=== PATIENT | male | born 1940 | race Caucasian/White ===

== ENCOUNTER 2017-10-15 13:01 | Emergency (ER) | payer MEDICARE ==
[2017-10-15 13:07] VITALS: RESP 18; TEMP 98.3
[2017-10-15] MEDS ORDERED: hydrALAZINE HCL 20 MG/ML 1 ML VIAL IVP STA (13:23)
--- NOTE | 2017-10-15 13:49 | ED ---
General Adult HPI - General Chief complaint: Chest Pain Stated complaint: Chest Pain Time Seen by Provider: 10/15/17 13:18 Source: patient, RN notes reviewed, old records reviewed Mode of arrival: wheelchair Limitations: no limitations - History of Present Illness Initial comments: This is a 77-year-old male to the ER for evaluation regards to elevated blood pressure. Patient states he has no medical history takes no medications. Patient follow-up with new doctor today. Patient's blood pressure was found to be elevated in the office. Patient here in the ER denies headache chest pain shortness of breath or abdominal pain, he is without complaint. He is not taking blood pressure medications recently - Related Data Home Medications Medication Instructions Recorded Confirmed Aspirin EC [Ecotrin Low Dose] 162 mg PO ONCE PRN 10/15/17 10/15/17 Previous Rx's Medication Instructions Recorded Enalapril [Vasotec] 5 mg PO BID #60 tab 10/15/17 Hydrochlorothiazide [Hydrodiuril] 50 mg PO DAILY #30 tab 10/15/17 hydrALAZINE HCL [Apresoline] 25 mg PO TID #15 tab 10/15/17 Allergies Allergy/AdvReac Type Severity Reaction Status Date / Time No Known Allergies Allergy Verified 10/15/17 13:43 Review of Systems ROS Statement: Those systems with pertinent positive or pertinent negative responses have been documented in the HPI. ROS Other: All systems not noted in ROS Statement are negative. Past Medical History Past Medical History: No Reported History History of Any Multi-Drug Resistant Organisms: None Reported Past Surgical History: Hernia Repair, Prostate Surgery Past Psychological History: No Psychological Hx Reported Smoking Status: Never smoker Past Alcohol Use History: None Reported Past Drug Use History: None Reported General Exam Limitations: no limitations General appearance: alert, in no apparent distress Head exam: Present: atraumatic, normocephalic, normal inspection Eye exam: Present: normal appearance, PERRL, EOMI. Absent: scleral icterus, conjunctival injection, periorbital swelling ENT exam: Present: normal exam, mucous membranes moist Neck exam: Present: normal inspection. Absent: tenderness, meningismus, lymphadenopathy Respiratory exam: Present: normal lung sounds bilaterally. Absent: respiratory distress, wheezes, rales, rhonchi, stridor Cardiovascular Exam: Present: regular rate, normal rhythm, normal heart sounds. Absent: systolic murmur, diastolic murmur, rubs, gallop, clicks GI/Abdominal exam: Present: soft, normal bowel sounds. Absent: distended, tenderness, guarding, rebound, rigid Extremities exam: Present: normal inspection, full ROM, normal capillary refill. Absent: tenderness, pedal edema, joint swelling, calf tenderness Back exam: Present: normal inspection Neurological exam: Present: alert, oriented X3, CN II-XII intact Psychiatric exam: Present: normal affect, normal mood Skin exam: Present: warm, dry, intact, normal color. Absent: rash Course Vital Signs 10/15/17 10/15/17 10/15/17 13:03 13:40 13:57 Temperature 98.3 F Pulse Rate 54 L 55 L Pulse Rate [ 56 L Bilateral Sitting Radial] Respiratory 18 18 Rate Blood Pressure 198/79 201/93 O2 Sat by Pulse 100 100 Oximetry 10/15/17 14:55 Temperature Pulse Rate 66 Pulse Rate [ Bilateral Sitting Radial] Respiratory 18 Rate Blood Pressure 182/85 O2 Sat by Pulse 100 Oximetry - Reevaluation(s) Reevaluation #1: 10/15/17 15:45 Blood pressure is much improved with treatment, patient consult regarding blood pressure EKG Findings - EKG Comments: EKG Findings:: EKG shows sinus bradycardia rate of 58, IA 190, QRS 96, QTc 431 Medical Decision Making - Medical Decision Making 77 male the ER Hypertension, continue follow-up with primary care. - Lab Data Result diagrams: 10/15/17 13:36 10/15/17 13:36 Lab Results 10/15/17 10/15/17 10/15/17 Range/Units 13:36 13:36 13:36 WBC 3.7 L (3.8-10.6) k/uL RBC 4.03 L (4.30-5.90) m/uL Hgb 13.5 (13.0-17.5) gm/dL Hct 38.4 L (39.0-53.0) % MCV 95.5 (80.0-100.0) fL MCH 33.5 (25.0-35.0) pg MCHC 35.1 (31.0-37.0) g/dL RDW 14.8 (11.5-15.5) % Plt Count 124 L (150-450) k/uL Neutrophils % 37 % Lymphocytes % 53 % Monocytes % 3 % Eosinophils % 4 % Basophils % 0 % Neutrophils # 1.4 (1.3-7.7) k/uL Lymphocytes # 2.0 (1.0-4.8) k/uL Monocytes # 0.1 (0-1.0) k/uL Eosinophils # 0.1 (0-0.7) k/uL Basophils # 0.0 (0-0.2) k/uL Manual Slide Review Performed RBC Morphology Normal PT (9.0-12.0) sec INR (<1.2) APTT (22.0-30.0) sec Sodium 142 (137-145) mmol/L Potassium 4.5 (3.5-5.1) mmol/L Chloride 107 (98-107) mmol/L Carbon Dioxide 26 (22-30) mmol/L Anion Gap 9 mmol/L BUN 19 (9-20) mg/dL Creatinine 1.30 H (0.66-1.25) mg/dL Est GFR (CKD-EPI)AfAm 61 (>60 ml/min/1.73 sqM) Est GFR (CKD-EPI)NonAf 53 (>60 ml/min/1.73 sqM) Glucose 88 (74-99) mg/dL Calcium 9.6 (8.4-10.2) mg/dL Magnesium 2.3 (1.6-2.3) mg/dL Total Bilirubin 0.6 (0.2-1.3) mg/dL AST 30 (17-59) U/L ALT 36 (21-72) U/L Alkaline Phosphatase 73 (38-126) U/L Total Creatine Kinase 158 (55-170) U/L CK-MB (CK-2) 2.1 (0.0-2.4) ng/mL CK-MB (CK-2) Rel Index 1.3 Troponin I <0.012 (0.000-0.034) ng/mL Total Protein 7.1 (6.3-8.2) g/dL Albumin 4.4 (3.5-5.0) g/dL 10/15/17 Range/Units 13:36 WBC (3.8-10.6) k/uL RBC (4.30-5.90) m/uL Hgb (13.0-17.5) gm/dL Hct (39.0-53.0) % MCV (80.0-100.0) fL MCH (25.0-35.0) pg MCHC (31.0-37.0) g/dL RDW (11.5-15.5) % Plt Count (150-450) k/uL Neutrophils % % Lymphocytes % % Monocytes % % Eosinophils % % Basophils % % Neutrophils # (1.3-7.7) k/uL Lymphocytes # (1.0-4.8) k/uL Monocytes # (0-1.0) k/uL Eosinophils # (0-0.7) k/uL Basophils # (0-0.2) k/uL Manual Slide Review RBC Morphology PT 10.4 (9.0-12.0) sec INR 1.1 (<1.2) APTT 27.8 (22.0-30.0) sec Sodium (137-145) mmol/L Potassium (3.5-5.1) mmol/L Chloride (98-107) mmol/L Carbon Dioxide (22-30) mmol/L Anion Gap mmol/L BUN (9-20) mg/dL Creatinine (0.66-1.25) mg/dL Est GFR (CKD-EPI)AfAm (>60 ml/min/1.73 sqM) Est GFR (CKD-EPI)NonAf (>60 ml/min/1.73 sqM) Glucose (74-99) mg/dL Calcium (8.4-10.2) mg/dL Magnesium (1.6-2.3) mg/dL Total Bilirubin (0.2-1.3) mg/dL AST (17-59) U/L ALT (21-72) U/L Alkaline Phosphatase (38-126) U/L Total Creatine Kinase (55-170) U/L CK-MB (CK-2) (0.0-2.4) ng/mL CK-MB (CK-2) Rel Index Troponin I (0.000-0.034) ng/mL Total Protein (6.3-8.2) g/dL Albumin (3.5-5.0) g/dL - Radiology Data Radiology results: report reviewed (CT angiogram chest negative for acute disease), image reviewed Disposition Clinical Impression: Hypertension Disposition: HOME SELF-CARE Condition: Good Instructions: Hypertension (ED) Prescriptions: Enalapril [Vasotec] 5 mg PO BID #60 tab hydrALAZINE HCL [Apresoline] 25 mg PO TID #15 tab Is patient prescribed a controlled substance at d/c from ED?: No Referrals: Deidre Calabrese MD [Primary Care Provider] - 1-2 days
[2017-10-15 14:00] LABS: Basophils % (A) 0 %; Eosinophils # (A) 0.1 k/uL (0-0.7); Eosinophils % (A) 4 %; HCT 38.4 % (39.0-53.0); HGB 13.5 gm/dL (13.0-17.5); Lymphocytes % (A) 53 %; MCH 33.5 pg (25.0-35.0); MCHC 35.1 g/dL (31.0-37.0); MCV 95.5 fL (80.0-100.0); Mean Platelet Volume 7.5; Monocytes # (A) 0.1 k/uL (0-1.0); Monocytes % (A) 3 %; Neutrophils # (A) 1.4 k/uL (1.3-7.7); Neutrophils % (A) 37 %; Platelet Count 124 k/uL (150-450); RBC 4.03 m/uL (4.30-5.90); RDW 14.8 % (11.5-15.5); WBC 3.7 k/uL (3.8-10.6)
[2017-10-15 14:11] LABS: Albumin 4.4 g/dL (3.5-5.0); Calcium 9.6 mg/dL (8.4-10.2); Magnesium 2.3 mg/dL (1.6-2.3); Potassium 4.5 mmol/L (3.5-5.1); Total Bilirubin 0.6 mg/dL (0.2-1.3); Total Protein 7.1 g/dL (6.3-8.2)
[2017-10-15 14:27] LABS: INR 1.1 (<1.2); Partial Thromboplastin Time 27.8 sec (22.0-30.0); Prothrombin Time 10.4 sec (9.0-12.0)
[2017-10-15 14:32] LABS: Creatine Kinase 158 U/L (55-170)
[2017-10-15 14:45] LABS: Creatine Kinase MB 2.1 ng/mL (0.0-2.4); Troponin I <0.012 ng/mL (0.000-0.034)
--- NOTE | 2017-10-15 15:24 | CT ---
EXAMINATION TYPE: CT angio chest DATE OF EXAM: 10/15/2017 COMPARISON: None HISTORY: Chest pain and abnormal EKG CT DLP: 323.3 mGycm Automated exposure control for dose reduction was used. CONTRAST: CTA scan of the thorax is performed with IV Contrast, patient injected with 70 mL of Isovue 370, pulm onary embolism protocol. MIP images are created and reviewed. 3D reconstructed images are created o n an independent workstation and reviewed. FINDINGS: LUNGS: The lungs are grossly clear, there is no concerning parenchymal mass or nodule identified. Bala cified granuloma present in the left lower lobe. Minimal basilar atelectatic changes are present The re is no pleural effusion or pneumothorax seen. The tracheobronchial tree is patent. AORTA: No additional significant abnormality is seen. Coronary artery calcifications are present MEDIASTINUM: There is satisfactory enhancement of the pulmonary artery and its branches, there is no CT evidence for pulmonary embolism. There are no greater than 1 cm hilar or mediastinal lymph nodes. No pericardial effusion is seen. OTHER: Scattered calcifications in the spleen likely indicative of old granulomatous disease. The li theodore shows low attenuation possibly due to hepatic steatosis. Possible small hiatal hernia. IMPRESSION: NO EVIDENT PULMONARY EMBOLISM. OLD GRANULOMATOUS DISEASE. CORONARY ARTERY DISEASE. POSSIBLE HIATAL HE RNIA, ADDITIONAL FINDINGS ABOVE.
[2017-10-15] MEDS ORDERED: ENALAPRILAT 1.25 MG/ML 1 ML VIAL IVP STA (15:40)
[2017-10-15 16:47] VITALS: BP 158/76; PULSE 61
== END 2017-10-15 16:47 | disposition home or self-care (01) ==
LOC: EC 13:01
DX: I10 Essential (primary) hypertension (principal); Z98.890 Other specified postprocedural states
CPT/HCPCS: 36415; 71275; 80053; 82550; 82553; 83735; 84484; 85025; 85610; 85730; 93005; 96374; 96375; 99285

== ENCOUNTER 2018-01-13 13:59 | Inpatient (IN) | payer MEDICARE ==
[2018-01-13] MEDS ORDERED: SODIUM CHLORIDE 0.9% 500 ML 500 ML IV STA (14:55)
[2018-01-13] MEDS ORDERED: PANTOPRAZOLE 40 MG/10 ML VIAL IVP STA (14:55)
--- NOTE | 2018-01-13 14:58 | ED ---
GI Bleed HPI <Chirag Brand - Last Filed: 01/13/18 15:49> - General Source: patient, RN notes reviewed Mode of arrival: ambulatory Limitations: no limitations <Corey Velasquez - Last Filed: 01/13/18 16:03> - General Chief complaint: GI Bleed Stated complaint: GI bleed Time Seen by Provider: 01/13/18 14:41 - History of Present Illness Initial comments: This a 77-year-old male presents emergency Department chief complaint of rectal bleeding. Patient states that he was recently discharged from hospital in [place] for cardiac issues. He states he is not sure if he is actively was on blood thinners of any sort. Patient states he does take 81 mg aspirin daily at this time. Patient states that his bowel movement was black and then he had bright red blood. He states it was slightly from her than usual although. Patient has no rectal pain no abdominal pain this time. Has no history of GI bleed or peptic ulcer disease or known diverticulitis. Patient denies fevers or chills. Denies chest pain or shortness breath. (Corey Velasquez) - Related Data Home Medications Medication Instructions Recorded Confirmed Aspirin 81 mg PO DAILY 01/13/18 01/13/18 Atorvastatin [Lipitor] 40 mg PO DAILY 01/13/18 01/13/18 Isosorbide Mononitrate ER [Imdur] 30 mg PO DAILY 01/13/18 01/13/18 Lisinopril [Prinivil] 5 mg PO DAILY 01/13/18 01/13/18 Metoprolol Succinate (ER) [Toprol 25 mg PO DAILY 01/13/18 01/13/18 Xl] Nitroglycerin Sl Tabs [Nitrostat] 0.4 mg PO DIRECTED 01/13/18 01/13/18 Allergies Allergy/AdvReac Type Severity Reaction Status Date / Time No Known Allergies Allergy Verified 01/13/18 14:27 Review of Systems ROS Other: All systems not noted in ROS Statement are negative. <Chirag Brand - Last Filed: 01/13/18 15:49> ROS Other: All systems not noted in ROS Statement are negative. <Corey Velasquez - Last Filed: 01/13/18 16:03> ROS Statement: Those systems with pertinent positive or pertinent negative responses have been documented in the HPI. Past Medical History Past Medical History: No Reported History History of Any Multi-Drug Resistant Organisms: None Reported Past Surgical History: Hernia Repair, Prostate Surgery Past Psychological History: No Psychological Hx Reported Smoking Status: Never smoker Past Alcohol Use History: None Reported Past Drug Use History: None Reported <Corey Velasquez Samra - Last Filed: 01/13/18 16:03> General Exam Limitations: no limitations General appearance: alert, in no apparent distress Head exam: Present: atraumatic, normocephalic, normal inspection Respiratory exam: Present: normal lung sounds bilaterally. Absent: respiratory distress, wheezes, rales, rhonchi, stridor Cardiovascular Exam: Present: regular rate, normal rhythm, normal heart sounds. Absent: systolic murmur, diastolic murmur, rubs, gallop, clicks GI/Abdominal exam: Present: soft, normal bowel sounds. Absent: distended, tenderness, guarding, rebound, rigid Rectal exam: Present: normal inspection, normal rectal tone Neurological exam: Present: alert, oriented X3, CN II-XII intact Skin exam: Present: warm, dry, intact, normal color. Absent: rash <Corey Velasquez Samra - Last Filed: 01/13/18 16:03> Vital Signs 01/13/18 14:06 Temperature 98.4 F Pulse Rate 77 Respiratory 16 Rate Blood Pressure 173/75 O2 Sat by Pulse 98 Oximetry Medical Decision Making - Lab Data Result diagrams: 01/13/18 14:59 01/13/18 14:59 <Chirag Brand - Last Filed: 01/13/18 15:49> - Lab Data Result diagrams: 01/13/18 14:59 01/13/18 14:59 <Corey Velasquez - Last Filed: 01/13/18 16:03> - Medical Decision Making Patient reevaluated by myself, Dr. Brand. Patient resting comfortably in bed. Patient updated on results and plan. Case was discussed in detail with Dr. Dave, covering for Dr. Calabrese, who will admit with consult for GI. I did review and agree with PA findings. This includes all diagnostic interpretations and treatment. (Chirag Brand) - Lab Data Lab Results 01/13/18 01/13/18 01/13/18 Range/Units 14:59 14:59 14:59 WBC 4.1 (3.8-10.6) k/uL RBC 3.48 L (4.30-5.90) m/uL Hgb 11.8 L (13.0-17.5) gm/dL Hct 34.9 L (39.0-53.0) % MCV 100.2 H (80.0-100.0) fL MCH 33.9 (25.0-35.0) pg MCHC 33.8 (31.0-37.0) g/dL RDW 14.0 (11.5-15.5) % Plt Count 154 (150-450) k/uL Neutrophils % 54 % Lymphocytes % 39 % Monocytes % 3 % Eosinophils % 2 % Basophils % 0 % Neutrophils # 2.2 (1.3-7.7) k/uL Lymphocytes # 1.6 (1.0-4.8) k/uL Monocytes # 0.1 (0-1.0) k/uL Eosinophils # 0.1 (0-0.7) k/uL Basophils # 0.0 (0-0.2) k/uL Macrocytosis Slight APTT 27.9 (22.0-30.0) sec Sodium 140 (137-145) mmol/L Potassium 4.4 (3.5-5.1) mmol/L Chloride 105 (98-107) mmol/L Carbon Dioxide 26 (22-30) mmol/L Anion Gap 9 mmol/L BUN 20 (9-20) mg/dL Creatinine 1.19 (0.66-1.25) mg/dL Est GFR (CKD-EPI)AfAm 68 (>60 ml/min/1.73 sqM) Est GFR (CKD-EPI)NonAf 59 (>60 ml/min/1.73 sqM) Glucose 93 (74-99) mg/dL Plasma Lactic Acid Otoniel (0.7-2.0) mmol/L Calcium 9.6 (8.4-10.2) mg/dL Magnesium 2.1 (1.6-2.3) mg/dL Total Bilirubin 0.6 (0.2-1.3) mg/dL AST 25 (17-59) U/L ALT 38 (21-72) U/L Alkaline Phosphatase 67 (38-126) U/L Total Protein 6.9 (6.3-8.2) g/dL Albumin 4.1 (3.5-5.0) g/dL Lipase 118 (23-300) U/L Stool Occult Blood (Negative) 01/13/18 01/13/18 Range/Units 14:59 14:59 WBC (3.8-10.6) k/uL RBC (4.30-5.90) m/uL Hgb (13.0-17.5) gm/dL Hct (39.0-53.0) % MCV (80.0-100.0) fL MCH (25.0-35.0) pg MCHC (31.0-37.0) g/dL RDW (11.5-15.5) % Plt Count (150-450) k/uL Neutrophils % % Lymphocytes % % Monocytes % % Eosinophils % % Basophils % % Neutrophils # (1.3-7.7) k/uL Lymphocytes # (1.0-4.8) k/uL Monocytes # (0-1.0) k/uL Eosinophils # (0-0.7) k/uL Basophils # (0-0.2) k/uL Macrocytosis APTT (22.0-30.0) sec Sodium (137-145) mmol/L Potassium (3.5-5.1) mmol/L Chloride (98-107) mmol/L Carbon Dioxide (22-30) mmol/L Anion Gap mmol/L BUN (9-20) mg/dL Creatinine (0.66-1.25) mg/dL Est GFR (CKD-EPI)AfAm (>60 ml/min/1.73 sqM) Est GFR (CKD-EPI)NonAf (>60 ml/min/1.73 sqM) Glucose (74-99) mg/dL Plasma Lactic Acid Otoniel 0.7 (0.7-2.0) mmol/L Calcium (8.4-10.2) mg/dL Magnesium (1.6-2.3) mg/dL Total Bilirubin (0.2-1.3) mg/dL AST (17-59) U/L ALT (21-72) U/L Alkaline Phosphatase (38-126) U/L Total Protein (6.3-8.2) g/dL Albumin (3.5-5.0) g/dL Lipase (23-300) U/L Stool Occult Blood Positive (Negative) Disposition <Brand,Chirag - Last Filed: 01/13/18 15:49> <Corey Velasquez - Last Filed: 01/13/18 16:03> Clinical Impression: GI bleed Disposition: ADMITTED IP TO THIS [facility] Condition: Stable Referrals: Deidre Calabrese MD [Primary Care Provider] - 1-2 days
[2018-01-13 15:18] LABS: Basophils % (A) 0 %; Eosinophils # (A) 0.1 k/uL (0-0.7); Eosinophils % (A) 2 %; HCT 34.9 % (39.0-53.0); HGB 11.8 gm/dL (13.0-17.5); Lymphocytes # (A) 1.6 k/uL (1.0-4.8); Lymphocytes % (A) 39 %; MCH 33.9 pg (25.0-35.0); MCHC 33.8 g/dL (31.0-37.0); MCV 100.2 fL (80.0-100.0); Macrocytosis Slight; Mean Platelet Volume 7.6; Monocytes # (A) 0.1 k/uL (0-1.0); Monocytes % (A) 3 %; Neutrophils # (A) 2.2 k/uL (1.3-7.7); Neutrophils % (A) 54 %; Platelet Count 154 k/uL (150-450); RBC 3.48 m/uL (4.30-5.90); WBC 4.1 k/uL (3.8-10.6)
[2018-01-13 15:27] LABS: Albumin 4.1 g/dL (3.5-5.0); Calcium 9.6 mg/dL (8.4-10.2); Magnesium 2.1 mg/dL (1.6-2.3); Potassium 4.4 mmol/L (3.5-5.1); Total Bilirubin 0.6 mg/dL (0.2-1.3); Total Protein 6.9 g/dL (6.3-8.2)
[2018-01-13] MEDS ORDERED: NALOXONE 0.4 MG/ML 1 ML VIAL IV PRN (16:03)
[2018-01-13] MEDS ORDERED: ACETAMINOPHEN TAB 325 MG TAB PO PRN (16:03)
[2018-01-14] MEDS: LISINOPRIL 5 MG TAB PO SCH (07:54)
[2018-01-14] MEDS: ATORVASTATIN 40 MG TAB PO SCH (07:54)
[2018-01-14] MEDS: ISOSORBIDE MONONITRATE ER 30 MG TAB.ER.24H PO SCH (07:54)
[2018-01-14] MEDS: METOPROLOL SUCCINATE (ER) 25 MG TAB.ER.24H PO SCH (07:55)
[2018-01-14 09:47] LABS: Basophils % (A) 0 %; Eosinophils # (A) 0.1 k/uL (0-0.7); Eosinophils % (A) 3 %; HCT 34.2 % (39.0-53.0); HGB 11.5 gm/dL (13.0-17.5); Lymphocytes # (A) 1.7 k/uL (1.0-4.8); Lymphocytes % (A) 49 %; MCH 33.9 pg (25.0-35.0); MCHC 33.7 g/dL (31.0-37.0); MCV 100.5 fL (80.0-100.0); Macrocytosis Slight; Mean Platelet Volume 7.1; Monocytes # (A) 0.1 k/uL (0-1.0); Monocytes % (A) 3 %; Neutrophils # (A) 1.5 k/uL (1.3-7.7); Neutrophils % (A) 43 %; Platelet Count 146 k/uL (150-450); RDW 13.9 % (11.5-15.5); WBC 3.5 k/uL (3.8-10.6)
[2018-01-14 10:01] LABS: Albumin 3.8 g/dL (3.5-5.0); Calcium 9.4 mg/dL (8.4-10.2); Potassium 4.2 mmol/L (3.5-5.1); Total Bilirubin 0.6 mg/dL (0.2-1.3); Total Protein 6.6 g/dL (6.3-8.2)
[2018-01-14 10:03] LABS: INR 1.2 (<1.2); Prothrombin Time 11.3 sec (9.0-12.0)
--- NOTE | 2018-01-14 11:34 | P.CONS ---
History of Present Illness - Reason for Consult Consult date: 01/14/18 Gi bleed Requesting physician: Amber Dave - Chief Complaint rectal bleeding - History of Present Illness 77-year-old gentleman with a past medical history of prostate carcinoma 2012 without chemoradiation, CAD, GERD, hyperlipidemia, hypertension. Admitted with rectal bleeding 3 days. Patient was recently hospitalized at [facility] and underwent heart catheterization with findings of triple-vessel disease. PTCA stent was not performed. He has been maintained on baby aspirin. He followed up with a cardiovascular surgeon and is presently deciding his options. He's been constipated x 1 week on Thursday he passed a bowel movement that was blood tinged followed by 2-3 tinged bowel movements daily. Denies hematemesis melena fever chills weight loss or abdominal pain. Last bloody bowel movement was yesterday morning. Denies abdominal pain. No history GI bleeding. His memory last colonoscopy was 3 years ago performed [address]. Rodrigues at [facility] but does not recall the findings. EGD April 2016 at [facility] reported gastritis and esophagitis. [facility] records were reviewed colonoscopy report was not seen. Admission 11.8 presently 11.5. MCV 100.5. Platelet 146. INR 1.2. FOBT positive. BUN 22 creatinine 1.1. Review of Systems Constitutional: Denies fever, chills, sweats, weight gain, or loss. HEENT: Negative for migraines, blurred vision or loss, earaches, drainage, tinnitus, oral mucosal lesions, dysphagia, or odynophagia. Cardiac: Negative for chest pain, arrhythmias, or palpitation. Respiratory: Negative for shortness of breath, hemoptysis, cough, or sputum production. Gastrointestinal: See HPI for pertinent findings. Genitourinary: Negative for hematuria, urgency, frequency, polyuria, dysuria, or penile discharge. Musculoskeletal: Negative for muscle aches, swelling, arthritis, and arthralgias. Neurologic: Negative for stroke or TIA. Endocrine: Negative for thyroid problems. Skin: Negative for rash or itching. Psychiatric: Negative history for depression and anxiety Past Medical History Past Medical History: Coronary Artery Disease (CAD), Cancer, GERD/Reflux, Hyperlipidemia, Hypertension, Prostate Disorder Additional Past Medical History / Comment(s): prostate ca 2013(sx only), gout, psoriases on scalp History of Any Multi-Drug Resistant Organisms: None Reported Past Surgical History: Heart Catheterization, Hernia Repair, Prostate Surgery, Tonsillectomy Past Anesthesia/Blood Transfusion Reactions: No Reported Reaction Smoking Status: Never smoker - Past Family History Mother Family Medical History: No Reported History Additional Family Medical History / Comment(s): age 96 Father Additional Family Medical History / Comment(s): at age 59 had all teeth pulled and 3 days later ?blood clot/mi pt not sure Medications and Allergies Home Medications Medication Instructions Recorded Confirmed Type Aspirin 81 mg PO DAILY 01/13/18 01/13/18 History Atorvastatin [Lipitor] 40 mg PO DAILY 01/13/18 01/13/18 History Isosorbide Mononitrate ER [Imdur] 30 mg PO DAILY 01/13/18 01/13/18 History Lisinopril [Prinivil] 5 mg PO DAILY 01/13/18 01/13/18 History Metoprolol Succinate (ER) [Toprol 25 mg PO DAILY 01/13/18 01/13/18 History Xl] Nitroglycerin Sl Tabs [Nitrostat] 0.4 mg PO DIRECTED 01/13/18 01/13/18 History Allergies Allergy/AdvReac Type Severity Reaction Status Date / Time No Known Allergies Allergy Verified 01/13/18 14:27 Physical Exam Vitals: Vital Signs Temp Pulse Pulse Resp BP BP Pulse Ox 01/14/18 06:40 97.3 F L 61 14 152/72 99 01/14/18 05:57 97.9 F 56 L 16 160/72 99 01/13/18 23:00 97.1 F L 59 L 20 136/66 99 01/13/18 18:49 98.0 F 65 18 124/74 99 01/13/18 17:00 63 18 157/87 98 01/13/18 16:30 63 18 156/88 01/13/18 16:00 65 18 156/74 98 01/13/18 15:30 68 18 164/75 01/13/18 15:00 66 18 146/82 98 01/13/18 14:06 98.4 F 77 16 173/75 98 Intake and Output 01/13/18 01/14/18 01/14/18 22:59 06:59 14:59 Intake Total 999 Balance 999 Intake: Intake, IV Titration 999 Amount Sodium Chloride 0.9% 500 999 ml 500 ml @ 999 mls/hr IV .Q31M STA Rx#:[id number] Other: # Voids 3 General appearance: The patient is alert, oriented, in no acute distress. HET: Head is normocephalic and atraumatic. Pupils are equal and reactive. Oropharynx is clear without lesions. Neck: Supple without lymphadenopathy. Trachea midline. Heart: S1 S2. Regular rate and rhythm. Lungs: No crackles or wheezes are heard. Abdomen: Soft, nontender, nondistended with bowel sounds. No peritoneal signs. No palpable organomegaly or masses. Extremities: Normal skin color and turgor. No cyanosis, rash, ulceration, clubbing, or edema. Radial and pedal pulses are 2/4 bilaterally. Neurological: No focal deficits. Strength and sensation are grossly intact. Results CBC & Chem 7: 01/14/18 09:33 01/14/18 09:33 Labs: Abnormal Lab Results - Last 24 Hours (Table) 01/13/18 01/14/18 01/14/18 Range/Units 14:59 09:33 09:33 WBC 3.5 L (3.8-10.6) k/uL RBC 3.48 L 3.40 L (4.30-5.90) m/uL Hgb 11.8 L 11.5 L (13.0-17.5) gm/dL Hct 34.9 L 34.2 L (39.0-53.0) % MCV 100.2 H 100.5 H (80.0-100.0) fL Plt Count 146 L (150-450) k/uL INR (<1.2) Creatinine 1.26 H (0.66-1.25) mg/dL Glucose 111 H (74-99) mg/dL 01/14/18 Range/Units 09:33 WBC (3.8-10.6) k/uL RBC (4.30-5.90) m/uL Hgb (13.0-17.5) gm/dL Hct (39.0-53.0) % MCV (80.0-100.0) fL Plt Count (150-450) k/uL INR 1.2 H (<1.2) Creatinine (0.66-1.25) mg/dL Glucose (74-99) mg/dL Assessment and Plan (1) Rectal bleeding Narrative/Plan: 77-year-old gentleman admitted with 1 week history of constipation followed by painless blood tinged bowel movements possible colonic diverticular bleed possible colitis possible hemorrhoidal maintained on aspirin for history of triple-vessel coronary artery disease with recent heart catheterization not requiring PTCA or stent. Patient reports last colonoscopy approximately 3 years ago but does not remember findings. Current Visit: Yes Status: Acute Code(s): K62.5 - HEMORRHAGE OF ANUS AND RECTUM SNOMED Code(s): 90484432 (2) GERD (gastroesophageal reflux disease) Current Visit: Yes Status: Chronic Code(s): K21.9 - GASTRO-ESOPHAGEAL REFLUX DISEASE WITHOUT ESOPHAGITIS SNOMED Code(s): 802329059 (3) History of coronary artery disease Current Visit: Yes Status: Acute Code(s): Z86.79 - PERSONAL HISTORY OF OTHER DISEASES OF THE CIRCULATORY SYSTEM SNOMED Code(s): 910689683 (4) History of prostate cancer Current Visit: Yes Status: Acute Code(s): Z85.46 - PERSONAL HISTORY OF MALIGNANT NEOPLASM OF PROSTATE SNOMED Code(s): 013289370 Plan: 1. Full liquid diet. CBC monitoring. GI prophylaxis. We will request colonoscopy report from Dr. Rodrigues's office to be placed on chart for review if more than 3 years ago patient could benefit from repeat colonoscopy. 2. Stool softeners. Will follow with you. Thank you for this kind referral and the opportunity to participate in the care of your patient. This consultation was discussed with Dr. Hines. The impression and plan of care have been directed as dictated.
--- NOTE | 2018-01-14 13:31 | P.HPIM ---
History of Present Illness H&P Date: 01/14/18 Chief Complaint: GI bleed This is a 77-year-old male patient of Dr. Calabrese. Patient presents to the emergency room with complaints of GI bleed. Patient reports that he had an episode of black bowel movement and then he had bright red blood following additional stools. Patient has a known past medical history of coronary artery disease. Patient recently treated at [facility] last week and received a cardiac cath and was told at that time that he required coronary artery bypass graft surgery. Patient states he did not receive any stents at that time and would like to get a second opinion before proceeding with open heart surgery. Additional medical history includes prostate cancer, GERD, hyperlipidemia and hypertension. Stool is positive for occult blood. Hemoglobin 11.8. GI service is consulted. At this time patient denies chest pain or shortness breath. Patient denies nausea vomiting or diarrhea. Patient denies any urinary burning or frequency Review of Systems please refer to HPI otherwise unremarkable Past Medical History Past Medical History: Coronary Artery Disease (CAD), Cancer, GERD/Reflux, Hyperlipidemia, Hypertension, Prostate Disorder Additional Past Medical History / Comment(s): prostate ca 2013(sx only), gout, psoriases on scalp History of Any Multi-Drug Resistant Organisms: None Reported Past Surgical History: Heart Catheterization, Hernia Repair, Prostate Surgery, Tonsillectomy Past Anesthesia/Blood Transfusion Reactions: No Reported Reaction Smoking Status: Never smoker - Past Family History Mother Family Medical History: No Reported History Additional Family Medical History / Comment(s): age 96 Father Additional Family Medical History / Comment(s): at age 59 had all teeth pulled and 3 days later ?blood clot/mi pt not sure Medications and Allergies Home Medications Medication Instructions Recorded Confirmed Type Aspirin 81 mg PO DAILY 01/13/18 01/13/18 History Atorvastatin [Lipitor] 40 mg PO DAILY 01/13/18 01/13/18 History Isosorbide Mononitrate ER [Imdur] 30 mg PO DAILY 01/13/18 01/13/18 History Lisinopril [Prinivil] 5 mg PO DAILY 01/13/18 01/13/18 History Metoprolol Succinate (ER) [Toprol 25 mg PO DAILY 01/13/18 01/13/18 History Xl] Nitroglycerin Sl Tabs [Nitrostat] 0.4 mg PO DIRECTED 01/13/18 01/13/18 History Allergies Allergy/AdvReac Type Severity Reaction Status Date / Time No Known Allergies Allergy Verified 01/13/18 14:27 Physical Exam Vitals: Vital Signs Temp Pulse Pulse Resp BP BP Pulse Ox 01/14/18 11:06 61 14 01/14/18 06:40 97.3 F L 61 14 152/72 99 01/14/18 05:57 97.9 F 56 L 16 160/72 99 01/13/18 23:00 97.1 F L 59 L 20 136/66 99 01/13/18 18:49 98.0 F 65 18 124/74 99 01/13/18 17:00 63 18 157/87 98 01/13/18 16:30 63 18 156/88 01/13/18 16:00 65 18 156/74 98 01/13/18 15:30 68 18 164/75 01/13/18 15:00 66 18 146/82 98 01/13/18 14:06 98.4 F 77 16 173/75 98 Intake and Output 01/13/18 01/14/18 01/14/18 22:59 06:59 14:59 Intake Total 999 Balance 999 Intake: Intake, IV Titration 999 Amount Sodium Chloride 0.9% 500 999 ml 500 ml @ 999 mls/hr IV .Q31M STA Rx#:[id number] Other: Voiding Method Toilet # Voids 3 Head normocephalic Neck supple Lungs clear to auscultation bilaterally no wheezing or crackles Heart regular rate and rhythm S1-S2, no rub or gallop Abdomen is soft nontender nondistended positive bowel sounds no hepatosplenomegaly Extremities no edema Neuro alert and orientated to 3 Results CBC & Chem 7: 01/14/18 09:33 01/14/18 09:33 Labs: Abnormal Lab Results - Last 24 Hours (Table) 01/13/18 01/14/18 01/14/18 Range/Units 14:59 09:33 09:33 WBC 3.5 L (3.8-10.6) k/uL RBC 3.48 L 3.40 L (4.30-5.90) m/uL Hgb 11.8 L 11.5 L (13.0-17.5) gm/dL Hct 34.9 L 34.2 L (39.0-53.0) % MCV 100.2 H 100.5 H (80.0-100.0) fL Plt Count 146 L (150-450) k/uL INR (<1.2) Creatinine 1.26 H (0.66-1.25) mg/dL Glucose 111 H (74-99) mg/dL 01/14/18 Range/Units 09:33 WBC (3.8-10.6) k/uL RBC (4.30-5.90) m/uL Hgb (13.0-17.5) gm/dL Hct (39.0-53.0) % MCV (80.0-100.0) fL Plt Count (150-450) k/uL INR 1.2 H (<1.2) Creatinine (0.66-1.25) mg/dL Glucose (74-99) mg/dL Thrombosis Risk Factor Assmnt - Choose All That Apply Any of the Below Risk Factors Present?: No Each Risk Factor Represents 3 Points: Age 75 years or older Thrombosis Risk Factor Assessment Total Risk Factor Score: 3 Thrombosis Risk Factor Assessment Level: Moderate Risk Assessment and Plan Assessment: 1. GI bleed. Hemoglobin 11.5. Stool is positive for occult blood. GI services following. GI services patient underwent colonoscopy with Dr. sanchez 3 years ago EGD April 2016 which showed gastritis and esophagitis. Patient to have full liquid diet per GI will request colonoscopy report from Dr. Sanchez's office patient may require repeat colonoscopy. 2. History of coronary artery disease with recent heart catheterization. Patient states he was treated at [facility] and underwent cardiac catheterization in which he was told he needs coronary artery bypass surgery last week. patient states he was discharged on baby aspirin and is currently deciding between his options for surgery. EKG has been ordered. Patient placed on cardiac telemetry monitoring. Patient currently maintained on Lopressor, Imdur and lisinopril 3. History of essential hypertension 4. History of prostate cancer 5. History of hyperlipidemia. Maintained on Lipitor 6. History of GERD DVT prophylaxis SCDs. GI prophylaxis protonix Time with Patient: Greater than 30 (Greater than 60% of the total time spent in counseling and coordination of care. I performed an examination of the patient and discussed their management with the Nurse Practitioner. I have reviewed the Nurse Practitioner's notes and agree with the documented findings and plan of care)
[2018-01-15] MEDS: ISOSORBIDE MONONITRATE ER 30 MG TAB.ER.24H PO SCH (08:42)
[2018-01-15] MEDS: ATORVASTATIN 40 MG TAB PO SCH (08:42)
[2018-01-15] MEDS: METOPROLOL SUCCINATE (ER) 25 MG TAB.ER.24H PO SCH (08:42)
[2018-01-15] MEDS: LISINOPRIL 5 MG TAB PO SCH (08:42)
[2018-01-15 09:31] LABS: Basophils % (A) 0 %; Eosinophils # (A) 0.1 k/uL (0-0.7); Eosinophils % (A) 3 %; HGB 12.3 gm/dL (13.0-17.5); Lymphocytes # (A) 1.4 k/uL (1.0-4.8); Lymphocytes % (A) 39 %; MCH 34.4 pg (25.0-35.0); MCHC 34.2 g/dL (31.0-37.0); MCV 100.7 fL (80.0-100.0); Macrocytosis Slight; Mean Platelet Volume 7.4; Monocytes # (A) 0.1 k/uL (0-1.0); Monocytes % (A) 3 %; Neutrophils # (A) 1.8 k/uL (1.3-7.7); Neutrophils % (A) 53 %; Platelet Count 143 k/uL (150-450); RBC 3.57 m/uL (4.30-5.90); RDW 14.1 % (11.5-15.5); WBC 3.4 k/uL (3.8-10.6)
[2018-01-15 09:32] LABS: Albumin 4.2 g/dL (3.5-5.0); Calcium 9.5 mg/dL (8.4-10.2); Potassium 4.2 mmol/L (3.5-5.1); Total Bilirubin 0.7 mg/dL (0.2-1.3); Total Protein 7.1 g/dL (6.3-8.2)
[2018-01-15] MEDS ORDERED: ASPIRIN 81 MG PO SCH (11:45)
[2018-01-15] MEDS ORDERED: LISINOPRIL 10 MG TAB PO ONE (12:10)
--- NOTE | 2018-01-15 12:10 | P.CRDCN ---
History of Present Illness History of present illness: Mr. Ambrosio is a pleasant 77-year-old male past medical history significant for distal left main lesion 80% stenosis, proximal LAD lesion 90% stenosis, mid lesion 95% stenosis with severe diffuse distal disease, moderate disease of the first diagonal branch, ostial lesion of 70% of the second diagonal branch, left circumflex left right collaterals, first OM, multiple tandem lesions with moderate to severe disease, second obtuse marginal with a proximal lesion 80% stenosis, RCA with 90% stenosis with severe disease distally. Ejection fraction 60%. He also has hypertension, dyslipidemia and prostate cancer 2013 requiring surgery. He follows with Dr. Bray as an outpatient. He underwent catheterization earlier this month and was recommended to undergo bypass surgery. He, however, has requested time to think and wants to consider having surgery in [place] rather than out of town. He is put on maximum medical therapy in thr form of aspirin, imdur, toprol, lisinopril and atorvastatin. After being discharged home he was constipated. He used stool softeners and was able to have a bowel movement. He noticed a dark black stool. Occult blood positive on admission. No felton bleeding. He denies chest pain, shortness of breath, dizziness or palpitations. EKG reveals sinus mechanism with left axis deviation heart rate [address] or T wave abnormalities noted. Laboratory data reviewed, hemoglobin 12.3, platelets 143, sodium 142, potassium 4.2, creatinine 1.33 up from 1.199 admission, magnesium 2.1. Current cardiac medications include aspirin 81 mg daily, atorvastatin 40 mg daily, Imdur 30 mg daily, lisinopril 5 g daily, Toprol 25 mg daily and sublingual nitroglycerin when necessary. At the time of my exam: CONSTITUTIONAL: Denies fever. Denies chills. EYES: Denies blurred vision. Denies vision changes. Denies eye pain. EARS, NOSE, MOUTH & THROAT: Denies headache. Denies sore throat. Denies ear pain. CARDIOVASCULAR: Denies chest pain. Denies shortness of breath. Denies orthopnea. Denies PND. Denies palpitations. RESPIRATORY: Denies cough. GASTROINTESTINAL: Denies abdominal pain. Denies diarrhea. Denies constipation. Denies nausea. Denies vomiting. MUSCULOSKELETAL: Denies myalgias. INTEGUMENTARY: Denies pruitis. Denies rash. NEUROLOGIC: Denies numbness. Denies tingling. Denies weakness. PSYCHIATRIC: Denies anxiety. Denies depression. ENDOCRINE: Denies fatigue. Denies weight change. Denies polydipsia. Denies polyurina. GENITOURINARY: Denies burning, hematuria or urgency with micturation. HEMATOLOGIC: Denies history of anemia. Denies felton bleeding. Blood pressure 154/67 heart rate 70 afebrile maintaining oxygen saturation on room air GENERAL: This is a 77-year-old male in no apparent distress at the time of my examination. HEENT: Head is atraumatic, normocephalic. Pupils are equal, round. Sclerae anicteric. Conjunctivae are clear. Mucous membranes of the mouth are moist. Neck is supple. There is no jugular venous distention. No carotid bruit is heard. LUNGS: Clear to auscultation no wheezes, rales or rhonchi. No chest wall tenderness is noted on palpation or with deep breathing. HEART: Regular rate and rhythm without murmurs, rubs or gallops. S1 and S2 heard. ABDOMEN: Soft, nontender. Bowel sounds are heard. No organomegaly noted. EXTREMITIES: No evidence of peripheral edema and no calf tenderness noted. VASCULAR: Radial and dorsalis pedis pulses palpated, no evidence of clubbing. NEUROLOGIC: Patient is awake, alert and oriented x3. ASSESSMENT Multivessel coronary artery disease Hypertension Dyslipidemia Rectal bleeding PLAN Patient is requesting to have a consultation with CT surgery for second opinion regarding bypass surgery. He has been discussed with nurse practitioner for CT surgery. Increase lisinopril to 10 mg daily for optimal blood pressure control. Resume aspirin 81 mg daily. Thank you kindly for this consultation. Nurse Practitioner note has been reviewed, I agree with a documented findings and plan of care. Patient was seen and examined. Past Medical History Past Medical History: Coronary Artery Disease (CAD), Cancer, GERD/Reflux, Hyperlipidemia, Hypertension, Prostate Disorder Additional Past Medical History / Comment(s): prostate ca 2013(sx only), gout, psoriases on scalp History of Any Multi-Drug Resistant Organisms: None Reported Past Surgical History: Heart Catheterization, Hernia Repair, Prostate Surgery, Tonsillectomy Past Anesthesia/Blood Transfusion Reactions: No Reported Reaction Smoking Status: Never smoker - Past Family History Mother Family Medical History: No Reported History Additional Family Medical History / Comment(s): age 96 Father Additional Family Medical History / Comment(s): at age 59 had all teeth pulled and 3 days later ?blood clot/mi pt not sure Medications and Allergies Home Medications Medication Instructions Recorded Confirmed Type Aspirin 81 mg PO DAILY 01/13/18 01/13/18 History Atorvastatin [Lipitor] 40 mg PO DAILY 01/13/18 01/13/18 History Isosorbide Mononitrate ER [Imdur] 30 mg PO DAILY 01/13/18 01/13/18 History Lisinopril [Prinivil] 5 mg PO DAILY 01/13/18 01/13/18 History Metoprolol Succinate (ER) [Toprol 25 mg PO DAILY 01/13/18 01/13/18 History Xl] Nitroglycerin Sl Tabs [Nitrostat] 0.4 mg PO DIRECTED 01/13/18 01/13/18 History Allergies Allergy/AdvReac Type Severity Reaction Status Date / Time No Known Allergies Allergy Verified 01/13/18 14:27 Physical Exam Vitals: Vital Signs Temp Pulse Resp BP Pulse Ox 01/15/18 08:44 96.9 F L 70 16 154/67 97 01/15/18 06:38 97.8 F 54 L 14 153/57 98 01/14/18 23:00 97.4 F L 57 L 16 151/69 100 01/14/18 14:20 98.3 F 60 16 120/56 99 Intake and Output 01/14/18 01/15/18 01/15/18 22:59 06:59 14:59 Other: Voiding Method Toilet # Voids 2 2 # Bowel Movements 1 Results 01/15/18 08:39 01/15/18 08:39 Cardiac Enzymes 01/15/18 Range/Units 08:39 AST 21 (17-59) U/L CBC 01/15/18 Range/Units 08:39 WBC 3.4 L (3.8-10.6) k/uL RBC 3.57 L (4.30-5.90) m/uL Hgb 12.3 L (13.0-17.5) gm/dL Hct 36.0 L (39.0-53.0) % Plt Count 143 L (150-450) k/uL Comprehensive Metabolic Panel 01/15/18 Range/Units 08:39 Sodium 142 (137-145) mmol/L Potassium 4.2 (3.5-5.1) mmol/L Chloride 105 (98-107) mmol/L Carbon Dioxide 27 (22-30) mmol/L BUN 15 (9-20) mg/dL Creatinine 1.33 H (0.66-1.25) mg/dL Glucose 121 H (74-99) mg/dL Calcium 9.5 (8.4-10.2) mg/dL AST 21 (17-59) U/L ALT 25 (21-72) U/L Alkaline Phosphatase 67 (38-126) U/L Total Protein 7.1 (6.3-8.2) g/dL Albumin 4.2 (3.5-5.0) g/dL Current Medications Generic Name Dose Route Start Last Admin Trade Name Freq PRN Reason Stop Dose Admin Acetaminophen 650 mg 01/13/18 16:03 Tylenol Tab PO Q6HR PRN Mild Pain or Fever > 100.5 Aspirin 81 mg 01/15/18 11:45 Aspirin PO DAILY [facility] Atorvastatin Calcium 40 mg 01/14/18 09:00 01/15/18 08:42 Lipitor PO 40 mg DAILY SAEED Administration Isosorbide Mononitrate 30 mg 01/14/18 09:00 01/15/18 08:42 Imdur PO 30 mg DAILY SAEED Administration Lisinopril 5 mg 01/14/18 09:00 01/15/18 08:42 Zestril PO 5 mg DAILY SAEED Administration Metoprolol Succinate 25 mg 01/14/18 09:00 01/15/18 08:42 Toprol Xl PO 25 mg DAILY SAEED Administration Naloxone HCl 0.2 mg 01/13/18 16:03 Narcan IV Q2M PRN Opioid Reversal Intake and Output 01/14/18 01/15/18 01/15/18 22:59 06:59 14:59 Other: Voiding Method Toilet # Voids 2 2 # Bowel Movements 1 01/15/18 08:39 01/15/18 08:39
--- NOTE | 2018-01-15 15:22 | P.DS ---
Providers Date of admission: 01/13/18 15:50 Expected date of discharge: 01/15/18 Attending physician: Amber Dave Consults: 01/13/18 15:50 Consult Physician Urgent Consulting Provider: Chung Reis Consult Reason/Comments: gi hemorrhage Do you want consulting provider notified?: Yes 01/14/18 14:41 Consult Physician Routine Consulting Provider: Nolberto Sanchez Consult Reason/Comments: Recent diagnosis of triple vessel disease from [facility] Do you want consulting provider notified?: Yes 01/15/18 11:31 Consult Physician Routine Consulting Provider: Willa Carrasco Consult Reason/Comments: triple vessel ds. wants second opinion and to have surery in [place] Do you want consulting provider notified?: Yes Primary care physician: [facility] Course: Discharge diagnosis 1. GI bleed. Hemoglobin 11.5. Stool is positive for occult blood. GI services following. GI services patient underwent colonoscopy with Dr. sanchez 3 years ago EGD April 2016 which showed gastritis and esophagitis. Patient to have full liquid diet per GI will request colonoscopy report from Dr. Sanchez's office patient may require repeat colonoscopy. Hemoglobin 12.3. Patient has been cleared for discharge from GI standpoint. Discussed case with Dr. De Dios per GI services. Per GI services patient to follow-up with Dr. sanchez who previously did his colonoscopy if colonoscopy is needed prior to open heart surgery. 2. History of coronary artery disease with recent heart catheterization. Patient states he was treated at [facility] and underwent cardiac catheterization in which he was told he needs coronary artery bypass surgery last week. patient states he was discharged on baby aspirin and is currently deciding between his options for surgery. EKG has been ordered. Patient placed on cardiac telemetry monitoring. Patient currently maintained on Lopressor, Imdur and lisinopril. Patient's lisinopril has been increased to 10 mg per better blood pressure control. Cardiothoracic team did meet with patient and discussed possible coronary artery bypass graft. Agrees that patient should follow-up outpatient next week for further evaluation for possible coronary artery bypass graft in the near future. Patient to have FEV1 level prior to discharge per cardiothoracic team 3. History of essential hypertension 4. History of prostate cancer 5. History of hyperlipidemia. Maintained on Lipitor 6. History of GERD Hospital Course This is a 77-year-old male patient of Dr. Calabrese. Patient presents to the emergency room with complaints of GI bleed. Patient reports that he had an episode of black bowel movement and then he had bright red blood following additional stools. Patient has a known past medical history of coronary artery disease. Patient recently treated at [facility] last week and received a cardiac cath and was told at that time that he required coronary artery bypass graft surgery. Patient states he did not receive any stents at that time and would like to get a second opinion before proceeding with open heart surgery. Additional medical history includes prostate cancer, GERD, hyperlipidemia and hypertension. Stool is positive for occult blood. Hemoglobin 11.8. GI service is consulted. At this time patient denies chest pain or shortness breath. Patient denies nausea vomiting or diarrhea. Patient denies any urinary burning or frequency 01/15/2018 patient is alert and oriented 3. Patient states he is feeling improved. Patient had normal BM last night. Hemoglobin increasing to 12.3. Discussed case with GI services. Patient has been cleared for discharge from GI standpoint. Patient to follow-up outpatient with Dr. sanchez who previously did patient colonoscopy one year prior if colonoscopy is required prior to open heart surgery. Discussed case with cardiothoracic team met with patient to evaluate possible coronary artery bypass graft surgery. Patient will follow-up outpatient for further evaluation. Cardiothoracic team requesting FEV1 level be obtained prior to discharge. At this time patient denies chest pain or shortness of breath. Patient denies nausea vomiting or diarrhea. Patient denies any urinary burning or frequency. Repeat CBC and CMP has been ordered for 2 days. Patient educated that if bleeding recurs patient is to come back to emergency department. Patient to follow-up closely with consulting providers and PCP I performed an examination of the patient and discussed their management with the Nurse Practitioner. I have reviewed the Nurse Practitioner's notes and agree with the documented findings and plan of care Patient Condition at Discharge: Stable Plan - Discharge Summary Discharge Rx Participant: Yes New Discharge Prescriptions: New Lisinopril [Zestril] 10 mg PO DAILY #30 tab Continue Aspirin 81 mg PO DAILY Metoprolol Succinate (ER) [Toprol XL] 25 mg PO DAILY Isosorbide Mononitrate ER [Imdur] 30 mg PO DAILY Atorvastatin [Lipitor] 40 mg PO DAILY Nitroglycerin Sl Tabs [Nitrostat] 0.4 mg PO DIRECTED Discontinued Lisinopril [Prinivil] 5 mg PO DAILY Discharge Medication List Aspirin 81 mg PO DAILY 01/13/18 [History] Atorvastatin [Lipitor] 40 mg PO DAILY 01/13/18 [History] Isosorbide Mononitrate ER [Imdur] 30 mg PO DAILY 01/13/18 [History] Metoprolol Succinate (ER) [Toprol XL] 25 mg PO DAILY 01/13/18 [History] Nitroglycerin Sl Tabs [Nitrostat] 0.4 mg PO DIRECTED 01/13/18 [History] Lisinopril [Zestril] 10 mg PO DAILY #30 tab 01/15/18 [Rx] Follow up Appointment(s)/Referral(s): Willa Carrasco MD [STAFF PHYSICIAN] - 01/22/18 12:15 pm Deidre Calabrese MD [Primary Care Provider] - 1-2 days Carl Rodrigues MD [Medical Doctor] - 1 Week Ambulatory/Diagnostic Orders: Complete Blood Count w/diff [LAB.AMB] Time Frame: 2 Days, Location: None Selected Comprehensive Metabolic Panel [LAB.AMB] Time Frame: 2 Days, Location: None Selected Activity/Diet/Wound Care/Special Instructions: Diet heart healthy Activity as tolerated Discharge Disposition: HOME SELF-CARE
[2018-01-15 15:23] VITALS: BP 111/58; PULSE 68; RESP 18; TEMP 96.6
--- NOTE | 2018-01-15 16:28 | P.GSCN ---
History of Present Illness Consult date: 01/15/18 Reason for Consult: Severe diffuse coronary artery disease with left main disease, surgical recommendations. Requesting physician: Lang Allen History of present illness: This is a 77-year-old active, independent gentleman who follows with Dr. Calabrese on an outpatient basis. He has a previous medical history of hypertension, hyperlipidemia, GERD, prostate cancer with prostatectomy in 2010, no chemo or radiation, family history of coronary artery disease, and left inguinal hernia repair. He was experiencing chest pain and shortness of breath with exertion over the previous 2 months, presented to his primary care physician's office, an EKG was obtained which was abnormal, he had a stress test which demonstrated ischemia in the lateral wall, and subsequently he was recommended to undergo left heart catheterization which was completed at [facility] on 01/2018. The heart catheterization at that time demonstrated distal left main disease of 80%, proximal LAD 90%, mid LAD 95%, ostium of the second diagonal 70% , proximal second OM 80%, and distal RCA with 90% stenosis. At that time he was seen by a cardiothoracic surgeon and was recommended to undergo bypass surgery. He chose to be discharged to home to discuss the situation with his family. Over the following weekend he became constipated and once able to stool he noticed bright red blood in his stool. He presented to [facility] for management and workup. He did have a positive occult blood in his stool and was seen by GI, however his hemoglobin has remained stable and was 12.3 this morning. He did have an EGD and colonoscopy within the last 3 years, neither one of which demonstrated any acute bleeding. Due to his recently discovered severe coronary artery disease cardiology was consulted, they retrieved his records from [place], discussed the need for bypass surgery with the patient, and the patient indicated he would prefer to stay in the [place] area as this is where his family resides. Dr. Carrasco from cardiothoracic surgery was consulted for surgical revascularization recommendations. Review of Systems Review of systems was completed and was negative except as noted - Cardiovascular Reports chest pain, Reports dyspnea on exertion - Gastrointestinal Reports BRBPR Past Medical History Past Medical History: Coronary Artery Disease (CAD), Cancer, GERD/Reflux, Hyperlipidemia, Hypertension, Prostate Disorder Additional Past Medical History / Comment(s): prostate ca 2013(sx only), gout, psoriases on scalp History of Any Multi-Drug Resistant Organisms: None Reported Past Surgical History: Heart Catheterization, Hernia Repair, Prostate Surgery, Tonsillectomy Past Anesthesia/Blood Transfusion Reactions: No Reported Reaction Past Psychological History: No Psychological Hx Reported Smoking Status: Never smoker Past Alcohol Use History: None Reported Past Drug Use History: None Reported - Past Family History Mother Family Medical History: No Reported History Additional Family Medical History / Comment(s): age 96 Father Additional Family Medical History / Comment(s): at age 59 had all teeth pulled and 3 days later ?blood clot/mi pt not sure Medications and Allergies Home Medications Medication Instructions Recorded Confirmed Type Aspirin 81 mg PO DAILY 01/13/18 01/13/18 History Atorvastatin [Lipitor] 40 mg PO DAILY 01/13/18 01/13/18 History Isosorbide Mononitrate ER [Imdur] 30 mg PO DAILY 01/13/18 01/13/18 History Metoprolol Succinate (ER) [Toprol 25 mg PO DAILY 01/13/18 01/13/18 History XL] Nitroglycerin Sl Tabs [Nitrostat] 0.4 mg PO DIRECTED 01/13/18 01/13/18 History Lisinopril [Zestril] 10 mg PO DAILY #30 tab 01/15/18 Rx Allergies Allergy/AdvReac Type Severity Reaction Status Date / Time No Known Allergies Allergy Verified 01/13/18 14:27 Surgical - Exam Vital Signs Temp Pulse Resp BP Pulse Ox 98.4 F 77 16 173/75 98 01/13/18 14:06 01/13/18 14:06 01/13/18 14:06 01/13/18 14:06 01/13/18 14:06 - General well developed, well nourished, no distress, no pain - Eyes PERRL, normal ocular movement - ENT no hearing loss - Neck no masses, no bruits, trachea midline - Respiratory Lung sounds clear bilaterally. Respirations even, nonlabored. Currently on room air oxygen saturation 98%. No chest wall deformities. - Cardiovascular S1, S2 present. Regular rate and rhythm, sinus rhythm on telemetry. Palpable peripheral pulses bilaterally. No edema present. No calf pain or tenderness noted. No varicosities noted. - Abdomen Abdomen: soft, non tender, bowel sounds - Genitourinary Deferred - Rectum Deferred - Integumentary no rash, no growths, no abnormal pigmentation - Neurologic normal coordination, normal sensation - Musculoskeletal normal gait, normal posture - Psychiatric oriented to time, oriented to person, oriented to place, speech is normal, memory intact Results - Labs 01/15/18 08:39 01/15/18 08:39 Abnormal Lab Results - Last 24 Hours (Table) 01/15/18 01/15/18 Range/Units 08:39 08:39 WBC 3.4 L (3.8-10.6) k/uL RBC 3.57 L (4.30-5.90) m/uL Hgb 12.3 L (13.0-17.5) gm/dL Hct 36.0 L (39.0-53.0) % MCV 100.7 H (80.0-100.0) fL Plt Count 143 L (150-450) k/uL Creatinine 1.33 H (0.66-1.25) mg/dL Glucose 121 H (74-99) mg/dL Diabetes panel 01/15/18 Range/Units 08:39 Sodium 142 (137-145) mmol/L Potassium 4.2 (3.5-5.1) mmol/L Chloride 105 (98-107) mmol/L Carbon Dioxide 27 (22-30) mmol/L BUN 15 (9-20) mg/dL Creatinine 1.33 H (0.66-1.25) mg/dL Glucose 121 H (74-99) mg/dL Calcium 9.5 (8.4-10.2) mg/dL AST 21 (17-59) U/L ALT 25 (21-72) U/L Alkaline Phosphatase 67 (38-126) U/L Total Protein 7.1 (6.3-8.2) g/dL Albumin 4.2 (3.5-5.0) g/dL Calcium panel 01/15/18 Range/Units 08:39 Calcium 9.5 (8.4-10.2) mg/dL Albumin 4.2 (3.5-5.0) g/dL Pituitary panel 01/15/18 Range/Units 08:39 Sodium 142 (137-145) mmol/L Potassium 4.2 (3.5-5.1) mmol/L Chloride 105 (98-107) mmol/L Carbon Dioxide 27 (22-30) mmol/L BUN 15 (9-20) mg/dL Creatinine 1.33 H (0.66-1.25) mg/dL Glucose 121 H (74-99) mg/dL Calcium 9.5 (8.4-10.2) mg/dL Adrenal panel 01/15/18 Range/Units 08:39 Sodium 142 (137-145) mmol/L Potassium 4.2 (3.5-5.1) mmol/L Chloride 105 (98-107) mmol/L Carbon Dioxide 27 (22-30) mmol/L BUN 15 (9-20) mg/dL Creatinine 1.33 H (0.66-1.25) mg/dL Glucose 121 H (74-99) mg/dL Calcium 9.5 (8.4-10.2) mg/dL Total Bilirubin 0.7 (0.2-1.3) mg/dL AST 21 (17-59) U/L ALT 25 (21-72) U/L Alkaline Phosphatase 67 (38-126) U/L Total Protein 7.1 (6.3-8.2) g/dL Albumin 4.2 (3.5-5.0) g/dL - Imaging Additional studies: outside facility heart catheterization reviewed. Assessment and Plan (1) Coronary artery disease Current Visit: Yes Status: Chronic Code(s): I25.10 - ATHSCL HEART DISEASE OF [place] CORONARY ARTERY W/O ANG PCTRS SNOMED Code(s): 22350393 (2) Left main coronary artery disease Current Visit: Yes Status: Chronic Code(s): I25.10 - ATHSCL HEART DISEASE OF [place] CORONARY ARTERY W/O ANG PCTRS SNOMED Code(s): 920599532 (3) Hypertension Current Visit: Yes Status: Chronic Code(s): I10 - ESSENTIAL (PRIMARY) HYPERTENSION SNOMED Code(s): 15105932 (4) Hyperlipidemia Current Visit: Yes Status: Chronic Code(s): E78.5 - HYPERLIPIDEMIA, UNSPECIFIED SNOMED Code(s): 97448766 (5) Family history of heart disease Current Visit: Yes Status: Chronic Code(s): Z82.49 - FAMILY HX OF [place] HEART DIS AND OTH DIS OF THE CIRC SYS SNOMED Code(s): 928376749 (6) Rectal bleeding Current Visit: No Status: Resolved Code(s): K62.5 - HEMORRHAGE OF ANUS AND RECTUM SNOMED Code(s): 59240522 (7) GERD (gastroesophageal reflux disease) Current Visit: Yes Status: Chronic Code(s): K21.9 - GASTRO-ESOPHAGEAL REFLUX DISEASE WITHOUT ESOPHAGITIS SNOMED Code(s): 693911732 Plan: The patient was seen and examined at the bedside with Dr. Carrasco. Chart/ diagnostics were reviewed. Heart catheterization films, carotid Dopplers, echocardiogram, vein mapping from [place] were reviewed. At this point , the patient is at moderate risk for surgery in view of his anatomy, mainly diffuse disease, however surgical revascularization is possible. We did offer the patient bypass surgery. He would like to have time to think about surgery and discuss with his family. We did schedule the patient to see Dr. Carrasco in the office next 01/22/2018 at which time his family will be present, all of their questions will be answered, and we will schedule surgery if the patient is agreeable. We would recommend maximizing medical therapy with aspirin, statin, beta vonda therapy. Pulmonary function tests will be completed. The patient may be discharged to home when okay with other consultants to follow-up in the office with us next week. Thank you Dr. Allen for this consult. We look forward to working with you in the care of your patient. Time with Patient: Greater than 30
[2018-01-16] MEDS ORDERED: LISINOPRIL 10 MG TAB PO SCH (09:00)
== END 2018-01-15 19:23 | disposition home or self-care (01) | DRG 379 ==
LOC: EC 13:59 → 4MS4W 15:50 → OBSVTOIN 01-15 18:39
PROVIDERS: ADMIT Internal Medicine; ATTEND Internal Medicine
DX: K92.1 Melena (principal); E78.5 Hyperlipidemia, unspecified; I10 Essential (primary) hypertension; I25.10 Atherosclerotic heart disease of native coronary artery without angina pectoris; K21.0 Gastro-esophageal reflux disease with esophagitis; K59.00 Constipation, unspecified; Z79.82 Long term (current) use of aspirin; Z79.899 Other long term (current) drug therapy; Z82.49 Family history of ischemic heart disease and other diseases of the circulatory system; Z85.46 Personal history of malignant neoplasm of prostate; Z90.79 Acquired absence of other genital organ(s); M10.9 Gout, unspecified; L40.9 Psoriasis, unspecified
CPT/HCPCS: 36415; 80053; 82272; 83605; 83690; 83735; 85025; 85610; 85730; 93005; 94150; 96361; 96374; 99284

== ENCOUNTER → 2018-08-31 | Outpatient (CLI) | payer MEDICARE ==
[2018-08-31 17:42] LABS: HCT 30.3 % (39.0-53.0); HGB 10.1 gm/dL (13.0-17.5); MCH 35.9 pg (25.0-35.0); MCHC 33.4 g/dL (31.0-37.0); MCV 107.5 fL (80.0-100.0); Macrocytosis Marked; Mean Platelet Volume 8.1; RBC 2.82 m/uL (4.30-5.90); RDW 15.2 % (11.5-15.5); WBC 2.2 k/uL (3.8-10.6)
[2018-08-31 18:56] LABS: Platelet Count 83 k/uL (150-450)
[2018-09-01 01:44] LABS: Calcium 9.1 mg/dL (8.7-10.3); Potassium 4.1 mmol/L (3.5-5.5)
== END | disposition home or self-care (01) ==
LOC: LABWHC1 16:35
PROVIDERS: ATTEND Family Medicine
DX: D61.818 Other pancytopenia (principal); N18.4 Chronic kidney disease, stage 4 (severe)
CPT/HCPCS: 36415; 80048; 85027

== ENCOUNTER 2019-06-14 12:00 | Day surgery (SDC) | payer MEDICARE ==
[~2019-06-14 12:00] MED LIST: LIDOCAINE 1% INJ 10MG/ML (20 ML MDV) ONE; LIDOCAINE 1% INJ 10MG/ML (20 ML MDV) SQ ONE
[2019-06-14 12:38] VITALS: RESP 16
--- NOTE | 2019-06-14 13:21 | IR ---
EXAMINATION TYPE: IR cvc insert >=5 years DATE OF EXAM: 06/14/2019 COMPARISON: NONE CLINICAL HISTORY: Thrombocytopenia Needs long-term intravenous access for therapy, chemotherapy. PROCEDURE: Hand hygiene obtained with soap and water and alcohol-based hand rub. After informed consent, the skin overlying the left brachial vein was localized with ultrasound and n oted to be compressible and patent. An ultrasound image was obtained and submitted on the patient's chart. The overlying skin was prepped and draped and Lidocaine was used for local anesthesia. A ski n chacorta was made with a scalpel. Access was gained to the vein under ultrasound guidance with a 21 ga uge needle and a 0.018 inch wire was advanced. Access site was dilated with Peel-Away sheath and cat heter tailored to the appropriate length and advanced such that the distal tip is at the cavoatrial j unction. Spot image was obtained verifying placement. Catheter was fixed to the skin and a sterile dressing was placed following hemostasis. Catheter was aspirated and flushed with saline. Patient w as discharged in stable condition without complication. Maximal barrier technique is utilized. Ultra sound image is documented on the chart. Ultrasound used with sterile technique. Fluoro time and fluoroscopic images submitted to document procedure: 34 intraoperative C-arm images, 0.2 minutes fluoroscopy time IMPRESSION: STATUS POST ULTRASOUND AND FLUOROSCOPIC GUIDED PICC LINE PLACEMENT, READY FOR USE. THIS PROCEDURE WAS PERFORMED BY THE UNDERSIGNED.
== END 2019-06-14 15:00 | disposition home or self-care (01) ==
LOC: CATHCVL 12:00
PROVIDERS: ATTEND Radiology Diagnostic Radiology
DX: D61.818 Other pancytopenia (principal); Z79.899 Other long term (current) drug therapy; I10 Essential (primary) hypertension; E78.00 Pure hypercholesterolemia, unspecified; Z90.79 Acquired absence of other genital organ(s); Z98.890 Other specified postprocedural states; Z80.42 Family history of malignant neoplasm of prostate; Z80.3 Family history of malignant neoplasm of breast
CPT/HCPCS: 36573; 36430; C1751; C1769; P9035; J2001

== ENCOUNTER 2019-07-11 14:48 | Inpatient (IN) | payer MEDICARE ==
[2019-07-11] MEDS ORDERED: SODIUM CHLORIDE 0.9% 500 ML 500 ML IV STA (15:32)
[2019-07-11] MEDS ORDERED: ACETAMINOPHEN TAB 500 MG TAB PO STA (15:33)
[2019-07-11 16:13] LABS: Anisocytosis Moderate; MCH 32.9 pg (25.0-35.0); MCHC 35.1 g/dL (31.0-37.0); MCV 93.7 fL (80.0-100.0); Macrocytosis Slight; Mean Platelet Volume 10.6; RBC 1.74 m/uL (4.30-5.90); RDW 20.4 % (11.5-15.5)
[2019-07-11 16:15] LABS: Albumin 3.4 g/dL (3.5-5.0); Potassium 4.2 mmol/L (3.5-5.1); Total Bilirubin 2.1 mg/dL (0.2-1.3); Total Protein 5.8 g/dL (6.3-8.2)
[2019-07-11 16:29] LABS: Appearance,Urine Clear (Clear); Bilirubin,Urine Negative (Negative); Blood,Urine Negative (Negative); Color,Urine Light Yellow; Glucose,Urine (UA) Negative (Negative); Ketones,Urine Negative (Negative); Leukocyte Esterase,Urine Negative (Negative); Nitrite,Urine Negative (Negative); Protein,Urine Negative (Negative); Specific Gravity,Urine 1.004 (1.001-1.035); Urobilinogen,Urine <2.0 mg/dL (<2.0)
--- NOTE | 2019-07-11 16:32 | XR ---
EXAMINATION TYPE: XR abdomen acute w cxr DATE OF EXAM: 07/11/2019 COMPARISON: NONE HISTORY: Pain TECHNIQUE: Supine, upright, and left side down lateral decubitus views of the abdomen are obtained. FINDINGS: PICC line noted with a tiny granuloma left upper lobe. Lungs are clear. No pleural effusion or pneumothorax. Heart size normal. No interstitial edema. Bowel gas pattern nonspecific. Hypertrophic change of the spine. No suspicious calcifications. Osseou s structures intact. IMPRESSION: Nonspecific abdomen.
[2019-07-11 16:35] LABS: HCT 16.3 % (39.0-53.0); HGB 5.7 gm/dL (13.0-17.5); WBC 0.4 k/uL (3.8-10.6)
[2019-07-11 16:43] LABS: Platelet Count 18 k/uL (150-450)
[2019-07-11 17:43] LABS: INR 1.3 (<1.2); Partial Thromboplastin Time 26.4 sec (22.0-30.0); Prothrombin Time 12.9 sec (9.0-12.0)
--- NOTE | 2019-07-11 17:46 | ED ---
General Adult HPI - General Chief complaint: Abdominal Pain Stated complaint: Bowel pain Time Seen by Provider: 07/11/19 15:06 Source: patient Mode of arrival: ambulatory Limitations: no limitations - History of Present Illness Initial comments: 79-year-old male patient presents to the emergency department today for evaluation of rectal pain. Patient states that he has been constipated for the last 2-3 days. States he did do an enema last evening without results. States he did have a large bowel movement this morning but has been left with rectal discomfort and pain. States that the area is very tender to touch. States he did notice some reddish stool. States he is also having pain to his abdomen his bladder gets full. Denies any dysuria or hematuria. States he did have a prostatectomy in the past for prostate cancer. Patient was recently diagnosed with acute myeloid leukemia and is receiving chemotherapy treatments, his oncologist is Dr. Tam. He did have a blood transfusion last week. Patient states he occasionally has issues with constipation. Denies any fever or chills. Patient denies any recent rash, cough, shortness of breath, chest pain, back pain, numbness, tingling, dizziness, weakness, headache, visual changes, or any other complaints. - Related Data Home Medications Medication Instructions Recorded Confirmed Atorvastatin [Lipitor] 40 mg PO HS 01/13/18 07/11/19 Isosorbide Mononitrate ER [Imdur] 30 mg PO DAILY 01/13/18 07/11/19 Nitroglycerin Sl Tabs [Nitrostat] 0.4 mg PO Q5M PRN 01/13/18 07/11/19 Cholecalciferol [Vitamin D3 (25 1,000 unit PO DAILY 06/13/19 07/11/19 Mcg = 1000 Iu)] Cyanocobalamin (Vitamin B-12) 1,000 mcg PO DAILY 06/13/19 07/11/19 [Vitamin B-12] Ranolazine [Ranolazine ER] 500 mg PO BID 06/13/19 07/11/19 Ubidecarenone [Co Q-10] 1 tab PO DAILY 06/13/19 07/11/19 Allopurinol [Zyloprim] 100 mg PO DAILY 07/11/19 07/11/19 Lisinopril [Zestril] 2.5 mg PO BID 07/11/19 07/11/19 Metoprolol Tartrate 25 mg PO DAILY 07/11/19 07/11/19 Ondansetron HCl [Zofran] 8 mg PO DAILY 07/11/19 07/11/19 Venetoclax [Venclexta] 400 mg PO DAILY 07/11/19 07/11/19 Allergies Allergy/AdvReac Type Severity Reaction Status Date / Time No Known Allergies Allergy Verified 07/11/19 15:56 Review of Systems ROS Statement: Those systems with pertinent positive or pertinent negative responses have been documented in the HPI. ROS Other: All systems not noted in ROS Statement are negative. Past Medical History Past Medical History: Coronary Artery Disease (CAD), Cancer, GERD/Reflux, Hyperlipidemia, Hypertension, Prostate Disorder Additional Past Medical History / Comment(s): prostate ca 2013(sx only). psoriases on scalp History of Any Multi-Drug Resistant Organisms: None Reported Past Surgical History: Heart Catheterization, Hernia Repair, Prostate Surgery, Tonsillectomy Past Anesthesia/Blood Transfusion Reactions: No Reported Reaction Past Psychological History: No Psychological Hx Reported Smoking Status: Former smoker Past Alcohol Use History: Occasional Past Drug Use History: None Reported - Past Family History Mother Family Medical History: No Reported History Additional Family Medical History / Comment(s): age 96 Father Additional Family Medical History / Comment(s): at age 59 had all teeth pulled and 3 days later ?blood clot/mi pt not sure General Exam Limitations: no limitations General appearance: alert, in no apparent distress, other (This is a well- developed, well-nourished elderly male patient in no acute distress. Vital signs upon presentation are temperature 98.3F, pulse 76, respirations 18, blood pressure 109/53, pulse ox 95% on room air.) Eye exam: Present: normal appearance, PERRL, EOMI. Absent: scleral icterus, conjunctival injection, periorbital swelling ENT exam: Present: normal exam, normal oropharynx, mucous membranes moist Respiratory exam: Present: normal lung sounds bilaterally. Absent: respiratory distress, wheezes, rales, rhonchi, stridor Cardiovascular Exam: Present: regular rate, normal rhythm, normal heart sounds. Absent: systolic murmur, diastolic murmur, rubs, gallop, clicks GI/Abdominal exam: Present: soft, normal bowel sounds. Absent: distended, tenderness, guarding, rebound, rigid Rectal exam: Present: normal inspection, tenderness Neurological exam: Present: alert, oriented X3, CN II-XII intact Psychiatric exam: Present: normal affect, normal mood Skin exam: Present: warm, dry, intact, normal color. Absent: rash Course Vital Signs 07/11/19 14:57 Temperature 98.3 F Pulse Rate 76 Respiratory 18 Rate Blood Pressure 109/53 O2 Sat by Pulse 95 Oximetry Medical Decision Making - Medical Decision Making 79-year-old male patient presents to the emergency department today for evaluation of rectal discomfort and abdominal discomfort. Physical examination reveals a soft nontender abdomen. Rectal exam did reveal rectal tenderness, no felton blood. Occult blood was positive. Labs are reviewed and did reveal decreased hemoglobin at 5.8, decreased platelets 18, decreased white blood cell count. Patient has had blood transfusion in the past with the last being last week. Patient will be admitted to the hospital for blood transfusion. Will recheck hemoglobin and hematocrit and platelets in the morning. Vital signs currently show no major abnormalities. Patient is agreeable to this plan. Dr. Mock has been notified. - Lab Data Result diagrams: 07/11/19 15:45 07/11/19 15:45 Lab Results 07/11/19 07/11/19 07/11/19 Range/Units 15:45 15:45 15:45 WBC 0.4 L* (3.8-10.6) k/uL RBC 1.74 L (4.30-5.90) m/uL Hgb 5.7 L* (13.0-17.5) gm/dL Hct 16.3 L* (39.0-53.0) % MCV 93.7 (80.0-100.0) fL MCH 32.9 (25.0-35.0) pg MCHC 35.1 (31.0-37.0) g/dL RDW 20.4 H (11.5-15.5) % Plt Count 18 L* (150-450) k/uL Neutrophils # MERCHANDISE DELIVERER Differential Comment Manual Slide Review Performed Anisocytosis Moderate Macrocytosis Slight PT (9.0-12.0) sec INR (<1.2) APTT (22.0-30.0) sec Sodium 134 L (137-145) mmol/L Potassium 4.2 (3.5-5.1) mmol/L Chloride 102 (98-107) mmol/L Carbon Dioxide 24 (22-30) mmol/L Anion Gap 8 mmol/L BUN 24 H (9-20) mg/dL Creatinine 1.32 H (0.66-1.25) mg/dL Est GFR (CKD-EPI)AfAm 59 (>60 ml/min/1.73 sqM) Est GFR (CKD-EPI)NonAf 51 (>60 ml/min/1.73 sqM) Glucose 100 H (74-99) mg/dL Calcium 9.0 (8.4-10.2) mg/dL Total Bilirubin 2.1 H (0.2-1.3) mg/dL AST 22 (17-59) U/L ALT 16 (4-49) U/L Alkaline Phosphatase 56 (38-126) U/L Total Protein 5.8 L (6.3-8.2) g/dL Albumin 3.4 L (3.5-5.0) g/dL Amylase 37 (30-110) U/L Lipase 50 (23-300) U/L Urine Color Urine Appearance (Clear) Urine pH (5.0-8.0) Ur Specific [place] (1.001-1.035) Urine Protein (Negative) Urine Glucose (UA) (Negative) Urine Ketones (Negative) Urine Blood (Negative) Urine Nitrite (Negative) Urine Bilirubin (Negative) Urine Urobilinogen (<2.0) mg/dL Ur Leukocyte Esterase (Negative) Stool Occult Blood Positive (Negative) 07/11/19 07/11/19 Range/Units 15:45 16:10 WBC (3.8-10.6) k/uL RBC (4.30-5.90) m/uL Hgb (13.0-17.5) gm/dL Hct (39.0-53.0) % MCV (80.0-100.0) fL MCH (25.0-35.0) pg MCHC (31.0-37.0) g/dL RDW (11.5-15.5) % Plt Count (150-450) k/uL Neutrophils # Differential Comment Manual Slide Review Anisocytosis Macrocytosis PT 12.9 H (9.0-12.0) sec INR 1.3 H (<1.2) APTT 26.4 (22.0-30.0) sec Sodium (137-145) mmol/L Potassium (3.5-5.1) mmol/L Chloride (98-107) mmol/L Carbon Dioxide (22-30) mmol/L Anion Gap mmol/L BUN (9-20) mg/dL Creatinine (0.66-1.25) mg/dL Est GFR (CKD-EPI)AfAm (>60 ml/min/1.73 sqM) Est GFR (CKD-EPI)NonAf (>60 ml/min/1.73 sqM) Glucose (74-99) mg/dL Calcium (8.4-10.2) mg/dL Total Bilirubin (0.2-1.3) mg/dL AST (17-59) U/L ALT (4-49) U/L Alkaline Phosphatase (38-126) U/L Total Protein (6.3-8.2) g/dL Albumin (3.5-5.0) g/dL Amylase (30-110) U/L Lipase (23-300) U/L Urine Color Light Yellow Urine Appearance Clear (Clear) Urine pH 7.0 (5.0-8.0) Ur Specific [place] 1.004 (1.001-1.035) Urine Protein Negative (Negative) Urine Glucose (UA) Negative (Negative) Urine Ketones Negative (Negative) Urine Blood Negative (Negative) Urine Nitrite Negative (Negative) Urine Bilirubin Negative (Negative) Urine Urobilinogen <2.0 (<2.0) mg/dL Ur Leukocyte Esterase Negative (Negative) Stool Occult Blood (Negative) - Radiology Data Radiology results: report reviewed, image reviewed X-ray of the abdomen with chest x-ray is obtained. Report was reviewed in its entirety. Impression by Dr. Grey shows nonspecific abdomen Disposition Clinical Impression: Pancytopenia, GI bleed Disposition: ADMITTED IP TO THIS [facility] Condition: Serious Referrals: Deidre Calabrese MD [Primary Care Provider] - 1-2 days Decision to Admit Reason: Admit from EC Decision Date: 07/11/19 Decision Time: 17:49
[2019-07-11] MEDS ORDERED: ACETAMINOPHEN TAB 325 MG TAB PO PRN (17:50)
[2019-07-11] MEDS ORDERED: ONDANSETRON 4 MG/2 ML VIAL IVP PRN (17:50)
[2019-07-11] MEDS ORDERED: NALOXONE 0.4 MG/ML 1 ML VIAL IV PRN (17:50)
[2019-07-11] MEDS: SENNOSIDES-DOCUSATE SODIUM 1 EACH TAB PO SCH (20:49)
[2019-07-11] MEDS: LISINOPRIL 2.5 MG TAB PO SCH (20:59)
[2019-07-11] MEDS: RANOLAZINE 500 MG TAB.ER.12H PO SCH (20:59)
[2019-07-11] MEDS: ATORVASTATIN 40 MG TAB PO SCH (20:59)
[2019-07-12 06:31] LABS: Anisocytosis Slight; HCT 23.2 % (39.0-53.0); MCH 33.3 pg (25.0-35.0); MCHC 35.5 g/dL (31.0-37.0); MCV 93.9 fL (80.0-100.0); Macrocytosis Slight; Mean Platelet Volume 11.7; RBC 2.48 m/uL (4.30-5.90); RDW 19.3 % (11.5-15.5)
[2019-07-12 07:02] LABS: Platelet Count 16 k/uL (150-450); WBC 0.6 k/uL (3.8-10.6)
[2019-07-12 07:03] LABS: HGB 8.2 gm/dL (13.0-17.5)
[2019-07-12] MEDS ORDERED: UBIDECARENONE PO SCH (09:00)
[2019-07-12] MEDS: SENNOSIDES-DOCUSATE SODIUM 1 EACH TAB PO SCH ×2 (10:00→20:04)
[2019-07-12] MEDS: ALLOPURINOL 100 MG TAB PO SCH (10:02)
[2019-07-12] MEDS: CHOLECALCIFEROL 1,000 UNIT TAB PO SCH (10:02)
[2019-07-12] MEDS: CYANOCOBALAMIN 500 MCG TAB PO SCH (10:02)
[2019-07-12] MEDS: LISINOPRIL 2.5 MG TAB PO SCH ×2 (10:03→20:05)
[2019-07-12] MEDS: METOPROLOL TARTRATE 25 MG TAB PO SCH (10:03)
[2019-07-12] MEDS: ISOSORBIDE MONONITRATE ER 30 MG TAB.ER.24H PO SCH (10:03)
[2019-07-12] MEDS: ONDANSETRON 4 MG TAB PO SCH (10:03)
[2019-07-12] MEDS: VENETOCLAX PO SCH (10:07)
[2019-07-12] MEDS: RANOLAZINE 500 MG TAB.ER.12H PO SCH ×2 (13:32→20:05)
--- NOTE | 2019-07-12 14:40 | P.CONS ---
History of Present Illness - Reason for Consult Consult date: 07/12/19 pancytopenia Requesting physician: Tiffanie Zaidi - Chief Complaint rectal pain and bleeding - History of Present Illness Malignancy history. Patient was referred in mid 2018 for pancytopenia. Hemoglobin 10.1, WBC 2.2, platelets 83,000. Iron studies were normal, PSA u ndetectable, anemia workup unremarkable. He had a peripheral smear showing rare plasmacytoidappearing lymphocytes. CT of the abdomen and pelvis showed densities in the bases of both lungs-this was preformed due to constipation. CT of the chest 01/21/19 showed a calcified granuloma in the left midlung. Pancytopenia workup completed was negative. She was recommended to have a bone marrow biopsy and aspirate, he stated he wanted to discuss with his daughter but failed to return to the office or call for any follow-up. He was seen in consult at [facility] early 06/16. Cytopenias were progressive, associated with markedly weakness. Bone marrow biopsy done , pathology confirmed acute myeloid leukemia, 35% blasts incidentally B-cell population was also noted. he was due for cycle 1 day 9 of Vidaza yesterday, he is supposed to be taking 400mg of ventoclax daily. On 07/06 his hemoglobin was 6.3, WBCs were 0.9, platelet count was 28,000. he received 1 unit irradiated packed red blood cells on 07/07. Patient came to the emergency department with complaints of rectal pain as well as some bright red blood on the stool after relief of significant constipation 4-5 days. He has had several bowel movements now since admission per Nursing, stool is softer, not watery. No ongoing bright red blood noted, stools are not black or tarry. Patient's hemoglobin is near his baseline considering he is also on treatment for acute myeloid leukemia. Patient denies fevers, chills, nausea, vomiting, upper abdominal discomfort, dysuria, hematuria, no other bleeding, swelling in the legs, the rectal pain is stable, not progressive. Review of Systems 14 point review of systems is negative except as stated in HPI Past Medical History Past Medical History: Coronary Artery Disease (CAD), Cancer, GERD/Reflux, Hyperlipidemia, Hypertension, Prostate Disorder Additional Past Medical History / Comment(s): prostate ca 2013(sx only). psoriases on scalp History of Any Multi-Drug Resistant Organisms: None Reported Past Surgical History: Heart Catheterization, Hernia Repair, Prostate Surgery, Tonsillectomy Past Anesthesia/Blood Transfusion Reactions: No Reported Reaction Past Psychological History: No Psychological Hx Reported Smoking Status: Former smoker Past Alcohol Use History: Occasional Past Drug Use History: None Reported - Past Family History Mother Family Medical History: No Reported History Additional Family Medical History / Comment(s): age 96 Father Additional Family Medical History / Comment(s): at age 59 had all teeth pulled and 3 days later ?blood clot/mi pt not sure Medications and Allergies Home Medications Medication Instructions Recorded Confirmed Type Atorvastatin [Lipitor] 40 mg PO HS 01/13/18 07/11/19 History Isosorbide Mononitrate ER [Imdur] 30 mg PO DAILY 01/13/18 07/11/19 History Nitroglycerin Sl Tabs [Nitrostat] 0.4 mg PO Q5M PRN 01/13/18 07/11/19 History Cholecalciferol [Vitamin D3 (25 1,000 unit PO DAILY 06/13/19 07/11/19 History Mcg = 1000 Iu)] Cyanocobalamin (Vitamin B-12) 1,000 mcg PO DAILY 06/13/19 07/11/19 History [Vitamin B-12] Ranolazine [Ranolazine ER] 500 mg PO BID 06/13/19 07/11/19 History Ubidecarenone [Co Q-10] 1 tab PO DAILY 06/13/19 07/11/19 History Allopurinol [Zyloprim] 100 mg PO DAILY 07/11/19 07/11/19 History Lisinopril [Zestril] 2.5 mg PO BID 07/11/19 07/11/19 History Metoprolol Tartrate 25 mg PO DAILY 07/11/19 07/11/19 History Ondansetron HCl [Zofran] 8 mg PO DAILY 07/11/19 07/11/19 History Venetoclax [Venclexta] 400 mg PO DAILY 07/11/19 07/11/19 History Allergies Allergy/AdvReac Type Severity Reaction Status Date / Time No Known Allergies Allergy Verified 07/11/19 15:56 Physical Exam Vitals: Vital Signs Temp Pulse Pulse Resp BP BP Pulse Ox 07/12/19 11:14 99.3 F 59 L 16 134/50 95 07/12/19 05:00 97.9 F 68 16 155/68 98 07/11/19 23:28 98.6 F 62 16 152/68 100 07/11/19 23:06 18 07/11/19 20:53 98.5 F 72 18 156/79 99 07/11/19 20:23 98.7 F 70 18 160/76 100 07/11/19 20:13 98.2 F 69 18 167/72 96 07/11/19 19:24 98.4 F 78 16 171/78 100 07/11/19 18:00 98.6 F 72 18 112/70 97 07/11/19 14:57 98.3 F 76 18 109/53 95 Intake and Output 07/11/19 07/12/19 07/12/19 22:59 06:59 14:59 Intake Total 600 620 Balance 600 620 Intake: Oral 600 Blood Product 0 620 Rc Irr As1 Unit 0 310 [id number] Other: Voiding Method Toilet Toilet # Voids 1 1 # Bowel Movements 1 1 Weight 70.76 kg - Constitutional General appearance: average body habitus, cooperative, no acute distress - EENT Eyes: anicteric sclerae, EOMI ENT: hearing grossly normal, normal oropharynx - Neck Neck: no lymphadenopathy - Respiratory Respiratory: bilateral: CTA - Cardiovascular Rhythm: regular Heart sounds: normal: S1, S2 Abnormal Heart Sounds: no systolic murmur, no diastolic murmur, no rub, no S3 Gallop, no S4 Gallop, no click, no other leg Peripheral Edema: bilateral: Trace - Gastrointestinal General gastrointestinal: no absent bowel sounds, no decreased bowel sounds, no distended, no hepatomegaly, no hyperactive bowel sounds, normal bowel sounds, no organomegaly, no rigid, no scaphoid, soft, no splenomegaly, no tenderness, no umbilical hernia, no ventral hernia - Neurologic Neurologic: CNII-XII intact - Musculoskeletal Musculoskeletal: strength equal bilaterally - Psychiatric Psychiatric: A&O x's 3, appropriate affect, intact judgment & insight Results CBC & Chem 7: 07/12/19 06:20 07/11/19 15:45 Labs: Abnormal Lab Results - Last 24 Hours (Table) 07/11/19 07/11/19 07/11/19 Range/Units 15:45 15:45 15:45 WBC 0.4 L* (3.8-10.6) k/uL RBC 1.74 L (4.30-5.90) m/uL Hgb 5.7 L* (13.0-17.5) gm/dL Hct 16.3 L* (39.0-53.0) % RDW 20.4 H (11.5-15.5) % Plt Count 18 L* (150-450) k/uL PT (9.0-12.0) sec INR (<1.2) Sodium 134 L (137-145) mmol/L BUN 24 H (9-20) mg/dL Creatinine 1.32 H (0.66-1.25) mg/dL Glucose 100 H (74-99) mg/dL Total Bilirubin 2.1 H (0.2-1.3) mg/dL Total Protein 5.8 L (6.3-8.2) g/dL Albumin 3.4 L (3.5-5.0) g/dL Crossmatch See Detail 07/11/19 07/12/19 Range/Units 15:45 06:20 WBC 0.6 L* (3.8-10.6) k/uL RBC 2.48 L (4.30-5.90) m/uL Hgb 8.2 L D (13.0-17.5) gm/dL Hct 23.2 L (39.0-53.0) % RDW 19.3 H (11.5-15.5) % Plt Count 16 L* (150-450) k/uL PT 12.9 H (9.0-12.0) sec INR 1.3 H (<1.2) Sodium (137-145) mmol/L BUN (9-20) mg/dL Creatinine (0.66-1.25) mg/dL Glucose (74-99) mg/dL Total Bilirubin (0.2-1.3) mg/dL Total Protein (6.3-8.2) g/dL Albumin (3.5-5.0) g/dL Crossmatch Abdominal x-ray: report reviewed (no acute abdomen) Assessment and Plan (1) Rectal bleeding Narrative/Plan: Patient has had persistent issues with constipation which is felt to be the source of the bright red blood per rectum he is describing. He was encouraged to utilize stool softeners and when necessary laxatives. His hemoglobin is currently stable. Current Visit: Yes Status: Acute Priority: High Code(s): K62.5 - HEMORRHAGE OF ANUS AND RECTUM SNOMED Code(s): 10230204 (2) Acute myeloid leukemia Narrative/Plan: He is just started treatment for the same. Recommendation is for him to continue his oral venetoclax as soon as possible (patient did not bring medication with him to the hospital). Due for day 9 of Vidaza yesterday, this will have to be rescheduled. We will do so once we know when the patient is being discharged. Current Visit: Yes Status: Acute Priority: High Code(s): C92.00 - ACUTE MYELOBLASTIC LEUKEMIA, NOT HAVING ACHIEVED REMISSION SNOMED Code(s): 83041514 (3) Pancytopenia Narrative/Plan: Patient's hemoglobin and platelets are overall stable considering treatment. Irradiated blood products only. Transfuse to keep hemoglobin 7 or higher. Transfuse to keep platelets 10,000 or higher unless symptomatic. No intervention for WBC of 0.6, patient is not a confirmed remission Current Visit: Yes Status: Chronic Priority: Medium Code(s): D61.818 - OTHER PANCYTOPENIA SNOMED Code(s): 474163394 Plan: Doctor attests: I performed a history and physical examination of this patient, developed i mpression and plan of care, discussed with dictator. I agree with dictators note, documented as a scribe.
[2019-07-12] MEDS: ATORVASTATIN 40 MG TAB PO SCH (20:05)
--- NOTE | 2019-07-13 01:05 | P.HPIM ---
History of Present Illness H&P Date: 07/12/19 Chief Complaint: rectal pain Paco Vivas is a 79 yo M with PMH of AML diagnosed in 2019, currently in the middle of chemotherapy cycle. He presented to the hospital complaining of rectal pain as well as some bright red blood per rectum. He complains of baseline constipation but yesterday he passed large amount of stool which was quite painful for him. On presentation his hgb was found to be 5.7, WBC 0.4, plt 18k. He does admit to some weakness but otherwise is feeling well. He denies black or tarry stools, nausea or vomiting. Pt was transfused 1 U PRBC with a rise in hgb to 8.2. He has continued to have loose stools since admission with several formed BM as well as watery BM. Review of Systems All systems: negative Constitutional: Reports weakness, Denies chills, Denies fever Eyes: denies blurred vision, denies pain Ears, nose, mouth and throat: Denies headache, Denies sore throat Cardiovascular: Denies chest pain, Denies shortness of breath Respiratory: Denies cough Gastrointestinal: Reports abdominal pain, Reports BRBPR, Reports diarrhea, Denies nausea, Denies vomiting Musculoskeletal: Denies myalgias Integumentary: Denies pruritus, Denies rash Neurological: Denies numbness, Denies weakness Psychiatric: Denies anxiety, Denies depression Endocrine: Denies fatigue, Denies weight change Past Medical History Past Medical History: Coronary Artery Disease (CAD), Cancer, GERD/Reflux, Hyperlipidemia, Hypertension, Prostate Disorder Additional Past Medical History / Comment(s): prostate ca 2013(sx only). psoriases on scalp History of Any Multi-Drug Resistant Organisms: None Reported Past Surgical History: Heart Catheterization, Hernia Repair, Prostate Surgery, Tonsillectomy Past Anesthesia/Blood Transfusion Reactions: No Reported Reaction Past Psychological History: No Psychological Hx Reported Smoking Status: Former smoker Past Alcohol Use History: Occasional Past Drug Use History: None Reported - Past Family History Mother Family Medical History: No Reported History Additional Family Medical History / Comment(s): age 96 Father Additional Family Medical History / Comment(s): at age 59 had all teeth pulled and 3 days later ?blood clot/mi pt not sure Medications and Allergies Home Medications Medication Instructions Recorded Confirmed Type Atorvastatin [Lipitor] 40 mg PO HS 01/13/18 07/11/19 History Isosorbide Mononitrate ER [Imdur] 30 mg PO DAILY 01/13/18 07/11/19 History Nitroglycerin Sl Tabs [Nitrostat] 0.4 mg PO Q5M PRN 01/13/18 07/11/19 History Cholecalciferol [Vitamin D3 (25 1,000 unit PO DAILY 06/13/19 07/11/19 History Mcg = 1000 Iu)] Cyanocobalamin (Vitamin B-12) 1,000 mcg PO DAILY 06/13/19 07/11/19 History [Vitamin B-12] Ranolazine [Ranolazine ER] 500 mg PO BID 06/13/19 07/11/19 History Ubidecarenone [Co Q-10] 1 tab PO DAILY 06/13/19 07/11/19 History Allopurinol [Zyloprim] 100 mg PO DAILY 07/11/19 07/11/19 History Lisinopril [Zestril] 2.5 mg PO BID 07/11/19 07/11/19 History Metoprolol Tartrate 25 mg PO DAILY 07/11/19 07/11/19 History Ondansetron HCl [Zofran] 8 mg PO DAILY 07/11/19 07/11/19 History Venetoclax [Venclexta] 400 mg PO DAILY 07/11/19 07/11/19 History Allergies Allergy/AdvReac Type Severity Reaction Status Date / Time No Known Allergies Allergy Verified 07/11/19 15:56 Physical Exam Vitals: Vital Signs Temp Pulse Resp BP Pulse Ox 07/13/19 00:00 16 07/12/19 21:00 98.2 F 69 16 163/78 98 07/12/19 11:14 99.3 F 59 L 16 134/50 95 07/12/19 05:00 97.9 F 68 16 155/68 98 Intake and Output 07/12/19 07/12/19 07/13/19 14:59 22:59 06:59 Intake Total 1080 Balance 1080 Intake: Oral 1080 Other: Voiding Method Toilet Toilet # Voids 3 # Bowel Movements 4 0 General: well nourished, thin, NAD. Vitals reviewed Eyes: PERRL, EOMI, conjunctiva normal HENT: normocephalic, mucus membranes moist Neck: supple, no JVD Lungs: normal respiratory effort, no wheezes or rales CV: Regular rate and rhythm, no murmur. Peripheral pulses 2+ Abdomen: soft, nondistended, no organomegaly Lymph: no cervical or axillary LAD Skin: warm and dry. Neuro: A&Ox3, normal mood and affect Results CBC & Chem 7: 07/12/19 06:20 07/11/19 15:45 Labs: Abnormal Lab Results - Last 24 Hours (Table) 07/12/19 Range/Units 06:20 WBC 0.6 L* (3.8-10.6) k/uL RBC 2.48 L (4.30-5.90) m/uL Hgb 8.2 L D (13.0-17.5) gm/dL Hct 23.2 L (39.0-53.0) % RDW 19.3 H (11.5-15.5) % Plt Count 16 L* (150-450) k/uL Thrombosis Risk Factor Assmnt - Choose All That Apply Any of the Below Risk Factors Present?: Yes Each Factor Represents 1 point: Obesity (BMI >25) Other Risk Factors: Yes Each Risk Factor Represents 2 Points: Malignancy Each Risk Factor Represents 3 Points: Age 75 years or older Other congenital or acquired thrombophilia - If yes, enter type in comment: No Thrombosis Risk Factor Assessment Total Risk Factor Score: 6 Thrombosis Risk Factor Assessment Level: High Risk Assessment and Plan (1) Acute myeloid leukemia Current Visit: Yes Status: Acute Priority: High Code(s): C92.00 - ACUTE MYELOBLASTIC LEUKEMIA, NOT HAVING ACHIEVED REMISSION SNOMED Code(s): 78712823 (2) Rectal bleeding Current Visit: Yes Status: Acute Priority: High Code(s): K62.5 - HEMORRH AGE OF ANUS AND RECTUM SNOMED Code(s): 14326747 (3) Hyperlipidemia Current Visit: No Status: Chronic Code(s): E78.5 - HYPERLIPIDEMIA, UNSPECIFIED SNOMED Code(s): 33916783 (4) Coronary artery disease Current Visit: No Status: Chronic Code(s): I25.10 - ATHSCL HEART DISEASE OF [place] CORONARY ARTERY W/O ANG PCTRS SNOMED Code(s): 37285389 (5) Hypertension Current Visit: No Status: Chronic Code(s): I10 - ESSENTIAL (PRIMARY) HYPER TENSION SNOMED Code(s): 10357595 Plan: 1. Rectal bleed. Abdominal pain. Likely secondary to constipation. Sen[place]ot and miralax. Recommend pt continue miralax on discharge. Zinc ointment topically 2. Pancytopenia. AML. Hematology consulted. Transfuse to maintain plt greater than 10k. Monitor hgb 3. CAD. Continue statin, ranexa and metoprolol
[2019-07-13 04:51] VITALS: RESP 18
[2019-07-13 06:44] LABS: Anisocytosis Slight; HCT 20.7 % (39.0-53.0); HGB 7.3 gm/dL (13.0-17.5); MCH 33.1 pg (25.0-35.0); MCHC 35.4 g/dL (31.0-37.0); MCV 93.4 fL (80.0-100.0); Macrocytosis Slight; Mean Platelet Volume 10.9; RBC 2.22 m/uL (4.30-5.90); RDW 18.9 % (11.5-15.5)
[2019-07-13 06:53] LABS: Platelet Count 15 k/uL (150-450); WBC 0.5 k/uL (3.8-10.6)
[2019-07-13 07:25] LABS: Calcium 8.6 mg/dL (8.4-10.2); Potassium 4.1 mmol/L (3.5-5.1)
[2019-07-13] MEDS: CYANOCOBALAMIN 500 MCG TAB PO SCH (08:19)
[2019-07-13] MEDS: LISINOPRIL 2.5 MG TAB PO SCH (08:19)
[2019-07-13] MEDS: ONDANSETRON 4 MG TAB PO SCH (08:20)
[2019-07-13] MEDS: CHOLECALCIFEROL 1,000 UNIT TAB PO SCH (08:20)
[2019-07-13] MEDS: RANOLAZINE 500 MG TAB.ER.12H PO SCH (08:20)
[2019-07-13] MEDS: METOPROLOL TARTRATE 25 MG TAB PO SCH (08:20)
[2019-07-13] MEDS: ISOSORBIDE MONONITRATE ER 30 MG TAB.ER.24H PO SCH (08:20)
[2019-07-13] MEDS: SENNOSIDES-DOCUSATE SODIUM 1 EACH TAB PO SCH (08:21)
[2019-07-13] MEDS: ALLOPURINOL 100 MG TAB PO SCH (08:23)
[2019-07-13] MEDS: VENETOCLAX PO SCH (08:23)
[2019-07-13 10:26] LABS: Large Platelets Present
[2019-07-13 10:27] LABS: Poikilocytosis (M) Present
[2019-07-13 11:30] VITALS: BP 117/56; PULSE 53; TEMP 97.3
--- NOTE | 2019-07-13 11:51 | P.DS ---
Providers Date of admission: 07/11/19 17:55 Expected date of discharge: 07/13/19 Attending physician: Chandan Mock MD Consults: 07/11/19 17:51 Consult Physician Routine Consulting Provider: Colby Tam Consult Reason/Comments: Pancytopenia Do you want consulting provider notified?: Yes Primary care physician: [facility] Course: Final Diagnoses (1) Acute myeloid leukemia Current Visit: Yes Status: Acute Priority: High Code(s): C92.00 - ACUTE MYELOBLASTIC LEUKEMIA, NOT HAVING ACHIEVED REMISSION SNOMED Code(s): 11043828 (2) Rectal bleeding, likely secondary to constipation Current Visit: Yes Status: Acute Priority: High Code(s): K62.5 - HEMORRHAGE OF ANUS AND RECTUM SNOMED Code(s): 91337620 (3) Hyperlipidemia Current Visit: No Status: Chronic Code(s): E78.5 - HYPERLIPIDEMIA, UNSPECIFIED SNOMED Code(s): 91832525 (4) Coronary artery disease Current Visit: No Status: Chronic Code(s): I25.10 - ATHSCL HEART DISEASE OF [place] CORONARY ARTERY W/O ANG PCTRS SNOMED Code(s): 84021509 (5) Hypertension Current Visit: No Status: Chronic Code(s): I10 - ESSENTIAL (PRIMARY) HYPERTENSION SNOMED Code(s): 03362102 (6) Possible cruzito -rectal fat pad Infection,secondary to fecal bacteria, related to prior constipation, Levaquin 1 week initiated. (7) pancytopenia secondary to AML (8) CAD Hospital course:Paco Vivas is a 79 yo M with PMH of AML diagnosed in 2019, currently in the middle of chemotherapy cycle. He presented to the hospital complaining of rectal pain as well as some bright red blood per rectum. He complains of baseline constipation but yesterday he passed large amount of stool which was quite painful for him. On presentation his hgb was found to be 5.7, WBC 0.4, plt 18k. He does admit to some weakness but otherwise is feeling well. He denies black or tarry stools, nausea or vomiting. Pt was transfused 1 U PRBC with a rise in hgb to 8.2. He has continued to have loose stools since admission with several formed BM as well as watery BM. Complains of tenderness of the anal sphincter, attributed to cruzito-rectal fat pad infection secondary to fecal bacteria related to prior constipation. Antibiotics of Levaquin initiated 1 week. Platelets currently 15, hemoglobin 7.3. WBC 0.5. Renal function significantly improved with BUN 19, creatinine 1.17. Patient will be discharged home today pending final DC recommendations/clearance from oncology. The impression and plan of care has been dictated as directed. : I performed a history and examination of this patient, discussed the same with the dictator. I agree with the dictator's note ,documented as a scribe. Any additional findings or plans will be noted. Patient Condition at Discharge: Stable Plan - Discharge Summary New Discharge Prescriptions: New Sennosides-Docusate Sodium [Senokot-S] 1 each PO BID #60 tab Levofloxacin [Levaquin] 500 mg PO DAILY 6 Days #6 tab Polyethylene Glycol 3350 [Miralax] 17 gm PO DAILY #527 gm Continue Isosorbide Mononitrate ER [Imdur] 30 mg PO DAILY Atorvastatin [Lipitor] 40 mg PO HS Nitroglycerin Sl Tabs [Nitrostat] 0.4 mg PO Q5M PRN PRN Reason: Chest Pain Ubidecarenone [Co Q-10] 1 tab PO DAILY Ranolazine [Ranolazine ER] 500 mg PO BID Cyanocobalamin (Vitamin B-12) [Vitamin B-12] 1,000 mcg PO DAILY Cholecalciferol [Vitamin D3 (25 Mcg = 1000 Iu)] 1,000 unit PO DAILY Allopurinol [Zyloprim] 100 mg PO DAILY Lisinopril [Zestril] 2.5 mg PO BID Metoprolol Tartrate 25 mg PO DAILY Ondansetron HCl [Zofran] 8 mg PO DAILY Venetoclax [Venclexta] 400 mg PO DAILY Discharge Medication List Atorvastatin [Lipitor] 40 mg PO HS 01/13/18 [History] Isosorbide Mononitrate ER [Imdur] 30 mg PO DAILY 01/13/18 [History] Nitroglycerin Sl Tabs [Nitrostat] 0.4 mg PO Q5M PRN 01/13/18 [History] Cholecalciferol [Vitamin D3 (25 Mcg = 1000 Iu)] 1,000 unit PO DAILY 06/13/19 [History] Cyanocobalamin (Vitamin B-12) [Vitamin B-12] 1,000 mcg PO DAILY 06/13/19 [History] Ranolazine [Ranolazine ER] 500 mg PO BID 06/13/19 [History] Ubidecarenone [Co Q-10] 1 tab PO DAILY 06/13/19 [History] Allopurinol [Zyloprim] 100 mg PO DAILY 07/11/19 [History] Lisinopril [Zestril] 2.5 mg PO BID 07/11/19 [History] Metoprolol Tartrate 25 mg PO DAILY 07/11/19 [History] Ondansetron HCl [Zofran] 8 mg PO DAILY 07/11/19 [History] Venetoclax [Venclexta] 400 mg PO DAILY 07/11/19 [History] Levofloxacin [Levaquin] 500 mg PO DAILY 6 Days #6 tab 07/13/19 [Rx] Polyethylene Glycol 3350 [Miralax] 17 gm PO DAILY #527 gm 07/13/19 [Rx] Sennosides-Docusate Sodium [Senokot-S] 1 each PO BID #60 tab 07/13/19 [Rx] Follow up Appointment(s)/Referral(s): Deidre Calabrese MD [Primary Care Provider] - 3 Days Colby Tam MD [STAFF PHYSICIAN] - 1 Week Ambulatory/Diagnostic Orders: Complete Blood Count w/diff [LAB.AMB] Time Frame: 1 Day, Location: None Selected
[2019-07-13] MEDS ORDERED: LEVOFLOXACIN 500 MG TAB PO SCH (12:00)
[2019-07-13] MEDS ORDERED: HYDROCORTISONE 2.5% RECTAL CREAM 30 GM TUBE RECTAL SCH (15:54)
--- NOTE | 2019-07-13 16:44 | P.PN ---
Subjective Progress Note Date: 07/13/19 Principal diagnosis: Rectal pain, bleeding in follow-up today patient has persistent rectal pain, worse when he sitting down, denies fevers, difficulty breathing, stools have been loose, no blood last BM. Objective - Vital Signs Vital signs: Vital Signs Temp 97.3 F L 07/13/19 11:09 Pulse 53 L 07/13/19 11:09 Resp 18 07/13/19 11:09 BP 117/56 07/13/19 11:09 Pulse Ox 98 07/13/19 11:09 Intake & Output 07/12/19 07/13/19 07/13/19 18:59 06:59 18:59 Intake Total 1440 Balance 1440 Intake: Oral 1440 Other: Voiding Method Toilet Toilet Toilet # Voids 3 1 # Bowel Movements 4 1 - Constitutional General appearance: Present: average body habitus, cooperative, mild distress - EENT Eyes: Present: anicteric sclerae, EOMI ENT: Present: hearing grossly normal - Respiratory Details: respirations even and unlabored - Cardiovascular Details: skin warm and dry - Gastrointestinal General gastrointestinal: Present: soft - Neurologic Neurologic: Present: CNII-XII intact - Musculoskeletal Musculoskeletal: Present: strength equal bilaterally - Psychiatric Psychiatric: Present: A&O x's 3, appropriate affect - Additional findings Additional findings: With RN present, evaluation of the perirectal area was performed, no digital rectal exam due to low platelets and low white blood cell count. Patient has visible external hemorrhoids. No bleeding noted. No mass, fissure or other skin changes noted - Labs CBC & Chem 7: 07/13/19 06:31 07/13/19 06:31 Labs: Abnormal Lab Results - Last 24 Hours (Table) 07/13/19 07/13/19 Range/Units 06:31 06:31 WBC 0.5 L* (3.8-10.6) k/uL RBC 2.22 L (4.30-5.90) m/uL Hgb 7.3 L (13.0-17.5) gm/dL Hct 20.7 L (39.0-53.0) % RDW 18.9 H (11.5-15.5) % Plt Count 15 L* (150-450) k/uL Sodium 136 L (137-145) mmol/L Assessment and Plan (1) Rectal bleeding Narrative/Plan: Patient has had persistent issues with constipation which is felt to be the source of the bright red blood per rectum he is describing. He was encouraged to utilize stool softeners and when necessary laxatives. His hemoglobin is currently stable. Perirectal exam revealed external hemorrhoids, topical treatment ordered. Patient instructed not to insert anything into the rectum due to low platelet and white blood cell counts. Recommended external treatment, keeping the stool soft to avoid straining, offset weight from the rectal area. Current Visit: Yes Status: Acute Priority: High Code(s): K62.5 - HEMORRHAGE OF ANUS AND RECTUM SNOMED Code(s): 04299863 (2) Acute myeloid leukemia Narrative/Plan: He is just started treatment for the same. Recommendation is for him to continue his oral venetoclax as soon as possible (patient did not bring medication with him to the hospital). Due for day 11 of Vidaza tomorrow, he will keep this appt is he is discharged. Bone marrow in 2 weeks Current Visit: Yes Status: Acute Priority: High Code(s): C92.00 - ACUTE MYELOBLASTIC LEUKEMIA, NOT HAVING ACHIEVED REMISSION SNOMED Code(s): 25167598 (3) Pancytopenia Narrative/Plan: Patient's hemoglobin and platelets are overall stable considering treatment. Irradiated blood products only. Transfuse to keep hemoglobin 7 or higher. Transfuse to keep platelets 10,000 or higher unless symptomatic. No intervention for WBC of 0.5, patient is not a confirmed remission. CBC will be done in office tomorrow, and pt will be scheduled further. Current Visit: Yes Status: Chronic Priority: Medium Code(s): D61.818 - OTHER PANCYTOPENIA SNOMED Code(s): 717254382
== END 2019-07-13 19:03 | disposition home or self-care (01) | DRG 809 ==
LOC: EC 14:48 → 5NMEDONC 17:55
PROVIDERS: ADMIT Family Medicine; ATTEND Family Medicine
PROC: 30233N1 Transfusion of Nonautologous Red Blood Cells into Peripheral Vein, Percutaneous Approach (ICD-10-PCS; principal; 2019-07-11)
DX: D61.818 Other pancytopenia (principal); C92.00 Acute myeloblastic leukemia, not having achieved remission; K62.5 Hemorrhage of anus and rectum; E78.5 Hyperlipidemia, unspecified; I10 Essential (primary) hypertension; I25.10 Atherosclerotic heart disease of native coronary artery without angina pectoris; J84.10 Pulmonary fibrosis, unspecified; K59.00 Constipation, unspecified; K64.4 Residual hemorrhoidal skin tags; K62.89 Other specified diseases of anus and rectum; Z79.899 Other long term (current) drug therapy; Z85.46 Personal history of malignant neoplasm of prostate; Z87.891 Personal history of nicotine dependence
CPT/HCPCS: 36415; 51798; 74022; 80048; 80053; 81003; 82150; 82272; 83690; 85025; 85610; 85730; 86850; 86900; 86901; 86920; 99285

== ENCOUNTER 2019-07-17 02:43 | Observation (INO) | payer MEDICARE ==
[2019-07-17 03:26] LABS: INR 1.2 (<1.2); Partial Thromboplastin Time 26.8 sec (22.0-30.0); Prothrombin Time 12.4 sec (9.0-12.0)
[2019-07-17 03:29] LABS: Anisocytosis Slight; MCH 32.7 pg (25.0-35.0); MCHC 35.7 g/dL (31.0-37.0); MCV 91.6 fL (80.0-100.0); Mean Platelet Volume 9.9; RBC 2.13 m/uL (4.30-5.90); RDW 18.5 % (11.5-15.5)
--- NOTE | 2019-07-17 03:29 | XR ---
EXAMINATION TYPE: XR abdomen acute w cxr DATE OF EXAM: 07/17/2019 COMPARISON: 07/11/2019 HISTORY: Constipation. Chest pain TECHNIQUE: 4 views FINDINGS: Heart and mediastinum are within normal limits for age. Lungs are clear of infiltrate. There is no he art failure. There is no sign of intestinal obstruction or pneumoperitoneum. Fecal pattern is normal. There is no evidence of a mass. There are chest leads. There are no pathologic calcifications over the kidneys. IMPRESSION: Normal chest. Nonacute abdomen. No adverse change.
[2019-07-17 03:37] LABS: Albumin 3.5 g/dL (3.5-5.0); Calcium 8.9 mg/dL (8.4-10.2); Magnesium 2.3 mg/dL (1.6-2.3); Phosphorus 3.6 mg/dL (2.5-4.5); Potassium 4.4 mmol/L (3.5-5.1); Total Bilirubin 0.8 mg/dL (0.2-1.3); Total Protein 6.1 g/dL (6.3-8.2)
[2019-07-17 03:38] LABS: HCT 19.5 % (39.0-53.0); WBC 0.8 k/uL (3.8-10.6)
--- NOTE | 2019-07-17 03:39 | ED ---
Chest Pain HPI - General Chief Complaint: Chest Pain Stated Complaint: Chest Pain Time Seen by Provider: 07/17/19 02:46 Source: patient, EMS, RN notes reviewed, old records reviewed Mode of arrival: EMS Limitations: no limitations - History of Present Illness Initial Comments: This is a 79-year-old male DF for eval should've chest pain chest pain is sta rted earlier this morning woke him up from sleep and he took 3 nitro improved between nitro medications returned and is currently is well causing left-sided chest pain. Patient states his does not feel well it is no fever was having difficulties with bowel movements having abdominal pain on and off. Patient is recent ER visit for similar complaints and was discharged home. Follow issues of been bothering him for over a week chest pain just started tonight. Patient is currently going to chemotherapy and his lab values have been off as of late MD Complaint: chest pain -: hour(s) Onset: during rest Pain Location: left chest Pain Radiation: LUE Severity: moderate Quality: heaviness Consistency: intermittent Improves With: nitroglycerin Worsens With: nothing Context: recent illness, new medications (chemoTx) Anginal Symptoms: nausea, dyspnea Other Symptoms: palpitations Treatments Prior to Arrival: nitroglycerin - Related Data Home Medications Medication Instructions Recorded Confirmed Atorvastatin [Lipitor] 40 mg PO HS 01/13/18 07/11/19 Isosorbide Mononitrate ER [Imdur] 30 mg PO DAILY 01/13/18 07/11/19 Nitroglycerin Sl Tabs [Nitrostat] 0.4 mg PO Q5M PRN 01/13/18 07/11/19 Cholecalciferol [Vitamin D3 (25 1,000 unit PO DAILY 06/13/19 07/11/19 Mcg = 1000 Iu)] Cyanocobalamin (Vitamin B-12) 1,000 mcg PO DAILY 06/13/19 07/11/19 [Vitamin B-12] Ranolazine [Ranolazine ER] 500 mg PO BID 06/13/19 07/11/19 Ubidecarenone [Co Q-10] 1 tab PO DAILY 06/13/19 07/11/19 Allopurinol [Zyloprim] 100 mg PO DAILY 07/11/19 07/11/19 Lisinopril [Zestril] 2.5 mg PO BID 07/11/19 07/11/19 Metoprolol Tartrate 25 mg PO DAILY 07/11/19 07/11/19 Ondansetron HCl [Zofran] 8 mg PO DAILY 07/11/19 07/11/19 Venetoclax [Venclexta] 400 mg PO DAILY 07/11/19 07/11/19 Previous Rx's Medication Instructions Recorded Levofloxacin [Levaquin] 500 mg PO DAILY 6 Days #6 tab 07/13/19 Polyethylene Glycol 3350 [Miralax] 17 gm PO DAILY #527 gm 07/13/19 Sennosides-Docusate Sodium 1 each PO BID #60 tab 07/13/19 [Senokot-S] Allergies Allergy/AdvReac Type Severity Reaction Status Date / Time No Known Allergies Allergy Verified 07/11/19 15:56 Review of Systems ROS Statement: Those systems with pertinent positive or pertinent negative responses have been documented in the HPI. ROS Other: All systems not noted in ROS Statement are negative. EKG Findings - EKG Comments: EKG Findings:: EKG shows sinus rhythm rate of 62, IL 156, QRS 86, QTC 418 Past Medical History Past Medical History: Coronary Artery Disease (CAD), Cancer, GERD/Reflux, Hyperlipidemia, Hypertension, Prostate Disorder Additional Past Medical History / Comment(s): prostate ca 2013(sx only). psoriases on scalp History of Any Multi-Drug Resistant Organisms: None Reported Past Surgical History: Heart Catheterization, Hernia Repair, Prostate Surgery, Tonsillectomy Past Anesthesia/Blood Transfusion Reactions: No Reported Reaction Past Psychological History: No Psychological Hx Reported Smoking Status: Former smoker Past Alcohol Use History: Occasional Past Drug Use History: None Reported - Past Family History Mother Family Medical History: No Reported History Additional Family Medical History / Comment(s): age 96 Father Additional Family Medical History / Comment(s): at age 59 had all teeth pulled and 3 days later ?blood clot/mi pt not sure General Exam Limitations: no limitations General appearance: alert, in no apparent distress, cachectic Head exam: Present: atraumatic, normocephalic, normal inspection Eye exam: Present: normal appearance, PERRL, EOMI. Absent: scleral icterus, conjunctival injection, periorbital swelling ENT exam: Present: normal exam, mucous membranes moist Neck exam: Present: normal inspection. Absent: tenderness, meningismus, lymphadenopathy Respiratory exam: Present: normal lung sounds bilaterally. Absent: respiratory distress, wheezes, rales, rhonchi, stridor Cardiovascular Exam: Present: regular rate, normal rhythm, normal heart sounds. Absent: systolic murmur, diastolic murmur, rubs, gallop, clicks GI/Abdominal exam: Present: soft, normal bowel sounds. Absent: distended, tenderness, guarding, rebound, rigid Extremities exam: Present: normal inspection, full ROM, normal capillary refill. Absent: tenderness, pedal edema, joint swelling, calf tenderness Back exam: Present: normal inspection Neurological exam: Present: alert, oriented X3, CN II-XII intact Psychiatric exam: Present: normal affect, normal mood Skin exam: Present: warm, dry, intact, normal color. Absent: rash Course Vital Signs 07/17/19 07/17/19 07/17/19 02:44 02:55 03:00 Temperature 98.6 F Pulse Rate 67 65 Respiratory 16 16 Rate Blood Pressure 144/78 144/78 O2 Sat by Pulse 100 99 100 Oximetry 07/17/19 07/17/19 07/17/19 03:30 04:00 04:30 Temperature Pulse Rate 61 57 L 61 Respiratory 17 14 18 Rate Blood Pressure 144/78 144/78 173/83 O2 Sat by Pulse 100 100 100 Oximetry - Reevaluation(s) Reevaluation #1: 07/17/19 04:17 medical record is reviewed Reevaluation #2: 07/17/19 04:21 Patient's primary ER visit as well as prior lab values have been evaluated Reevaluation #3: 07/17/19 04:21 Patient occasional chest pain here in the ER - Consultations Consultation #1: spoke w [facility] ok for admission Chest Pain MDM - MDM 79 male to the ER for chest pain evaluation [place] is chest pain observation also severe pancytopenia patient is related leukemia on chemo expected for transfusion at coming up. Patient will have consultation with oncology while here in the hospital Disposition Clinical Impression: Atypical chest pain, Chest pain, Pancytopenia Disposition: ADMITTED IP TO THIS HOSP Condition: Fair Is patient prescribed a controlled substance at d/c from ED?: No Referrals: Deidre Calabrese MD [Primary Care Provider] - 1-2 days
[2019-07-17 04:07] LABS: Platelet Count 23 k/uL (150-450); Poikilocytosis (M) Present
[2019-07-17] MEDS ORDERED: MORPHINE SULFATE 4 MG/ML SYRINGE IV PRN (04:45)
[2019-07-17] MEDS ORDERED: NITROGLYCERIN SL TABS 0.4 MG TAB SUBLINGUAL PRN ×2 (04:45→10:01)
[2019-07-17] MEDS ORDERED: ONDANSETRON 4 MG TAB PO PRN (10:01)
--- NOTE | 2019-07-17 10:31 | P.CONS ---
History of Present Illness - Reason for Consult Consult date: 07/17/19 - History of Present Illness The patient is a 79-year-old white male with multiple medical problems, including history of coronary artery disease, well known to myself. He is currently on induction therapy for recent diagnosis of acute myeloid leukemia, with Vidaza and Venetoclax. He is also currently transfusion dependent. Malignancy history. Patient was referred in mid 2018 for pancytopenia. Hemogl obin 10.1, WBC 2.2, platelets 83,000. Iron studies were normal, PSA undetectable, anemia workup unremarkable. He had a peripheral smear showing rare plasmacytoidappearing lymphocytes. CT of the abdomen and pelvis showed densities in the bases of both lungs-this was preformed due to constipation. CT of the chest 01/21/19 showed a calcified granuloma in the left midlung. Pancytopenia workup completed was negative. She was recommended to have a bone marrow biopsy and aspirate, he stated he wanted to discuss with his daughter but failed to return to the office or call for any follow-up. He was seen in consult at [facility] early 06/16. Cytopenias were progressive, associated with markedly weakness. Bone marrow biopsy done , pathology confirmed acute myeloid leukemia, 35% blasts incidentally B-cell population was also noted. He is status post 1 cycle of Vidaza, and is also on 400mg of ventoclax daily. Patient came to the emergency department with complaints of rectal pain as well as some bright red blood on the stool after relief of significant constipation 4-5 days. Patient was recently admitted, on 07/11/19 with abdominal pain which is due to constipation. He did have rectal bleeding related to hard stool which subsequently resolved. The patient came in this time with complaints of chest pain. He states that he had eaten some canned salmon at 10 PM. He usually does not eat this late. He was woken up from sleep a few hours later with chest pain in the lower chest, radiating from right to left. He describes that as a dull ache. No history of shortness of breath, diaphoresis, or nausea. As the pain persisted he came into the emergency room. Initial troponin was negative. He was admitted for further management, and consult placed Review of Systems Constitutional: Reports fatigue, Reports weakness Eyes: denies blurred vision, denies pain Ears: deny: decreased hearing, ear discharge, earache, tinnitus Ears, nose, mouth and throat: Denies headache, Denies sore throat Cardiovascular: Reports as per HPI, Reports chest pain, Reports decreased exercise tolerance Respiratory: Denies cough Gastrointestinal: Reports abdominal pain, Reports constipation Genitourinary: Reports as per HPI Musculoskeletal: Reports muscle weakness Integumentary: Denies pruritus, Denies rash Neurological: Reports weakness Psychiatric: Denies anxiety, Denies depression Endocrine: Reports fatigue Hematologic/Lymphatic: Reports as per HPI Past Medical History Past Medical History: Coronary Artery Disease (CAD), Cancer, GERD/Reflux, Hyperlipidemia, Hypertension, Prostate Disorder Additional Past Medical History / Comment(s): prostate ca 2013(sx only). psoriases on scalp, LEUKEMENIA APR 2019 History of Any Multi-Drug Resistant Organisms: None Reported Past Surgical History: Heart Catheterization, Hernia Repair, Prostate Surgery, Tonsillectomy Past Anesthesia/Blood Transfusion Reactions: No Reported Reaction Past Psychological History: No Psychological Hx Reported Smoking Status: Never smoker Past Alcohol Use History: Occasional Past Drug Use History: None Reported - Past Family History Mother Family Medical History: No Reported History Additional Family Medical History / Comment(s): age 96 Father Additional Family Medical History / Comment(s): at age 59 had all teeth pulled and 3 days later ?blood clot/mi pt not sure Medications and Allergies Home Medications Medication Instructions Recorded Confirmed Type Atorvastatin [Lipitor] 40 mg PO HS 01/13/18 07/17/19 History Isosorbide Mononitrate ER [Imdur] 30 mg PO DAILY 01/13/18 07/17/19 History Nitroglycerin Sl Tabs [Nitrostat] 0.4 mg PO Q5M PRN 01/13/18 07/17/19 History Cholecalciferol [Vitamin D3 (25 1,000 unit PO DAILY 06/13/19 07/17/19 History Mcg = 1000 Iu)] Cyanocobalamin (Vitamin B-12) 1,000 mcg PO DAILY 06/13/19 07/17/19 History [Vitamin B-12] Ranolazine [Ranolazine ER] 500 mg PO BID 06/13/19 07/17/19 History Ubidecarenone [Co Q-10] 100 mg PO DAILY 06/13/19 07/17/19 History Allopurinol [Zyloprim] 100 mg PO DAILY 07/11/19 07/17/19 History Lisinopril [Zestril] 5 mg PO DAILY 07/11/19 07/17/19 History Metoprolol Tartrate 12.5 mg PO BID 07/11/19 07/17/19 History Ondansetron HCl [Zofran] 8 mg PO QID PRN 07/11/19 07/17/19 History Venetoclax [Venclexta] 400 mg PO DAILY 07/11/19 07/17/19 History Levofloxacin [Levaquin] 500 mg PO DAILY 6 Days #6 tab 07/13/19 07/17/19 Rx Polyethylene Glycol 3350 [Miralax] 17 gm PO DAILY #527 gm 07/13/19 07/17/19 Rx Sennosides-Docusate Sodium 1 tab PO BID 07/17/19 07/17/19 History [Senokot-S] Allergies Allergy/AdvReac Type Severity Reaction Status Date / Time No Known Allergies Allergy Verified 07/17/19 09:33 Physical Exam Vitals: Vital Signs Temp Pulse Pulse Resp BP BP Pulse Ox 07/17/19 08:00 98.3 F 70 16 169/72 100 07/17/19 05:56 98.2 F 64 20 107/62 99 07/17/19 05:03 97.6 F 07/17/19 04:30 61 18 173/83 100 07/17/19 04:00 57 L 14 144/78 100 07/17/19 03:30 61 17 144/78 100 07/17/19 03:00 65 16 144/78 100 07/17/19 02:55 99 07/17/19 02:44 98.6 F 67 16 144/78 100 Intake and Output 07/16/19 07/17/19 07/17/19 22:59 06:59 14:59 Other: Weight 70.76 kg - Constitutional General appearance: no acute distress - EENT Eyes: EOMI, PERRLA ENT: hearing grossly normal, normal oropharynx - Neck Neck: no lymphadenopathy Thyroid: bilateral: normal size - Respiratory Respiratory: bilateral: CTA - Cardiovascular Rhythm: regular Heart sounds: normal: S1, S2 - Gastrointestinal General gastrointestinal: normal bowel sounds, soft - Integumentary Integumentary: normal - Neurologic Neurologic: CNII-XII intact - Musculoskeletal Musculoskeletal: generalized weakness, strength equal bilaterally - Psychiatric Psychiatric: A&O x's 3, appropriate affect Results CBC & Chem 7: 07/17/19 03:02 07/17/19 03:02 Labs: Abnormal Lab Results - Last 24 Hours (Table) 07/17/19 07/17/19 07/17/19 Range/Units 03:02 03:02 03:02 WBC 0.8 L* (3.8-10.6) k/uL RBC 2.13 L (4.30-5.90) m/uL Hgb 7.0 L (13.0-17.5) gm/dL Hct 19.5 L* (39.0-53.0) % RDW 18.5 H (11.5-15.5) % Plt Count 23 L D (150-450) k/uL PT 12.4 H (9.0-12.0) sec INR 1.2 H (<1.2) Sodium 133 L (137-145) mmol/L Total Protein 6.1 L (6.3-8.2) g/dL Comments: EKG reviewed Chest x-ray: report reviewed Abdominal x-ray: report reviewed Assessment and Plan (1) Chest pain Narrative/Plan: The patient does have a known history of underlying coronary artery disease. He has had anemia now for several months, due to his underlying AML. Hemoglobin on this admission was 7. However based on his symptoms, atypical chest pain possibly GI in origin is potentially more likely. A cardiac etiology cannot be totally ruled out. - The case was discussed in detail with the admitting service. Cardiology will be consulted for further workup. The patient will receive a blood transfusion for hemoglobin of 7. He is not a candidate for aggressive cardiac workup, due to his underlying AML, and cytopenias including persistent thrombo- cytopenia which preclude any anticoagulation or antiplatelet therapy. Therefore treatment in any case would be medical and supportive. - Patient is currently asymptomatic. Therefore from our standpoint it was recommended that he receive supportive transfusion and then can potentially be d ischarged if okay with the admitting service and cardiology Current Visit: Yes Status: Acute Code(s): R07.9 - CHEST PAIN, UNSPECIFIED SNOMED Code(s): 51717811 (2) Acute myeloid leukemia Narrative/Plan: Diagnostic and therapeutic circumstances as described. If the patient remains in the hospital today, when he was advised to have his family bring his Venetoclax from home so he can continue it inpatient Current Visit: No Status: Acute Priority: High Code(s): C92.00 - ACUTE MYELOBLASTIC LEUKEMIA, NOT HAVING ACHIEVED REMISSION SNOMED Code(s): 52503852 (3) Pancytopenia Narrative/Plan: The patient is on monitoring and supportive transfusions for hemoglobin less than 7 and platelets less than 10. 1 unit PRBCs will be ordered Current Visit: Yes Status: Chronic Priority: Medium Code(s): D61.818 - OTHER PANCYTOPENIA SNOMED Code(s): 449648526 (4) Abdominal pain Narrative/Plan: The patient was previously admitted for this, and has continued to have issues as an outpatient. This appears to be due to constipation. The patient was not compliant with his bowel regimen previously and after repeated urging has become more compliant. He states that bowel movements have been more regular over the last couple of days, and abdominal pain is significantly improved Current Visit: Yes Status: Acute Code(s): R10.9 - UNSPECIFIED ABDOMINAL PAIN SNOMED Code(s): 02339470 Plan: Defer to the admitting service and other consultants for management of his other medical problems
[2019-07-17] MEDS: LEVOFLOXACIN 500 MG TAB PO SCH (11:24)
[2019-07-17] MEDS: PANTOPRAZOLE 40 MG/10 ML VIAL IVP SCH ×2 (11:25→23:09)
[2019-07-17] MEDS ORDERED: ISOSORBIDE MONONITRATE ER 30 MG TAB.ER.24H PO STA (11:58)
[2019-07-17] MEDS ORDERED: METOPROLOL TARTRATE 12.5 MG TAB PO STA (11:58)
[2019-07-17] MEDS ORDERED: LISINOPRIL 5 MG TAB PO STA (11:59)
[2019-07-17] MEDS ORDERED: RANOLAZINE 500 MG TAB.ER.12H PO ONE (11:59)
--- NOTE | 2019-07-17 12:13 | P.HPIM ---
History of Present Illness Patient is an 79-year-old male came in with complaints of chest pain on the right side of the chest and constant worse with the food [place] associated nausea and patient denied any lightheadedness shortness of breath nonexertional chest and constant chest pain nonradiating. Patient still has his gallbladder rule out acute coronary syndromes, EKG did not show any acute ST-T wave changes disease some mild LVH. Patient has known history of coronary artery disease and previous stents in the past patient has acute myeloid leukemia patient is found to be pancytopenic with hemoglobin of 7.1 considering his coronary artery disease history and the his low hemoglobin plan is to transfuse him and patient need irradiated blood patient will be transfused with PRBC and patient was evaluated by cardiology after that patient probably can be discharged. Patient is on prophylactic antibiotics for severe pancytopenia and neutropenia. Patient's pain resolved at this time. Review of Systems REVIEW OF SYSTEMS: CONSTITUTIONAL: No fever, no malaise, no fatigue. HEENT: No recent visual problems or hearing problems. Denied any sore throat. CARDIOVASCULAR: No orthopnea, PND, no palpitations, no syncope. PULMONARY: No shortness of breath, no cough, no hemoptysis. GASTROINTESTINAL: No diarrhea, no nausea, no vomiting, no abdominal pain. NEUROLOGICAL: No headaches, no weakness, no numbness. HEMATOLOGICAL: Denies any bleeding or petechiae. GENITOURINARY: Denies any burning micturition, frequency, or urgency. MUSCULOSKELETAL/RHEUMATOLOGICAL: Denies any joint pain, swelling, or any muscle pain. ENDOCRINE: Denies any polyuria or polydipsia. The rest of the 14-point review of systems is negative. Past Medical History Past Medical History: Coronary Artery Disease (CAD), Cancer, GERD/Reflux, Hyperlipidemia, Hypertension, Prostate Disorder Additional Past Medical History / Comment(s): prostate ca 2012(sx only). psoriases on scalp, LEUKEMENIA APR 2019 History of Any Multi-Drug Resistant Organisms: None Reported Past Surgical History: Heart Catheterization, Hernia Repair, Prostate Surgery, Tonsillectomy Past Anesthesia/Blood Transfusion Reactions: No Reported Reaction Past Psychological History: No Psychological Hx Reported Smoking Status: Never smoker Past Alcohol Use History: Occasional Past Drug Use History: None Reported - Past Family History Mother Family Medical History: No Reported History Additional Family Medical History / Comment(s): age 96 Father Additional Family Medical History / Comment(s): at age 59 had all teeth pulled and 3 days later ?blood clot/mi pt not sure Medications and Allergies Home Medications Medication Instructions Recorded Confirmed Type Atorvastatin [Lipitor] 40 mg PO HS 01/13/18 07/17/19 History Isosorbide Mononitrate ER [Imdur] 30 mg PO DAILY 01/13/18 07/17/19 History Nitroglycerin Sl Tabs [Nitrostat] 0.4 mg PO Q5M PRN 01/13/18 07/17/19 History Cholecalciferol [Vitamin D3 (25 1,000 unit PO DAILY 06/13/19 07/17/19 History Mcg = 1000 Iu)] Cyanocobalamin (Vitamin B-12) 1,000 mcg PO DAILY 06/13/19 07/17/19 History [Vitamin B-12] Ranolazine [Ranolazine ER] 500 mg PO BID 06/13/19 07/17/19 History Ubidecarenone [Co Q-10] 100 mg PO DAILY 06/13/19 07/17/19 History Allopurinol [Zyloprim] 100 mg PO DAILY 07/11/19 07/17/19 History Lisinopril [Zestril] 5 mg PO DAILY 07/11/19 07/17/19 History Metoprolol Tartrate 12.5 mg PO BID 07/11/19 07/17/19 History Ondansetron HCl [Zofran] 8 mg PO QID PRN 07/11/19 07/17/19 History Venetoclax [Venclexta] 400 mg PO DAILY 07/11/19 07/17/19 History Levofloxacin [Levaquin] 500 mg PO DAILY 6 Days #6 tab 07/13/19 07/17/19 Rx Polyethylene Glycol 3350 [Miralax] 17 gm PO DAILY #527 gm 07/13/19 07/17/19 Rx Sennosides-Docusate Sodium 1 tab PO BID 07/17/19 07/17/19 History [Senokot-S] Allergies Allergy/AdvReac Type Severity Reaction Status Date / Time No Known Allergies Allergy Verified 07/17/19 09:33 Physical Exam Vitals: Vital Signs Temp Pulse Pulse Resp BP BP Pulse Ox 07/17/19 11:22 98.0 F 66 16 160/71 100 07/17/19 08:00 98.3 F 70 16 169/72 100 07/17/19 05:56 98.2 F 64 20 107/62 99 07/17/19 05:03 97.6 F 07/17/19 04:30 61 18 173/83 100 07/17/19 04:00 57 L 14 144/78 100 07/17/19 03:30 61 17 144/78 100 07/17/19 03:00 65 16 144/78 100 07/17/19 02:55 99 07/17/19 02:44 98.6 F 67 16 144/78 100 Intake and Output 07/16/19 07/17/19 07/17/19 22:59 06:59 14:59 Intake Total 180 Balance 180 Intake: Oral 180 Other: Weight 70.76 kg PHYSICAL EXAMINATION: GENERAL: The patient is alert and oriented x3, not in any acute distress. Well developed, well nourished. HEENT: Pupils are round and equally reacting to light. EOMI. No scleral icterus. No conjunctival pallor. Normocephalic, atraumatic. No pharyngeal erythema. No thyromegaly. CARDIOVASCULAR: S1 and S2 present. No murmurs, rubs, or gallops. PULMONARY: Chest is clear to auscultation, no wheezing or crackles. ABDOMEN: Soft, nontender, nondistended, normoactive bowel sounds. No palpable organomegaly. MUSCULOSKELETAL: No joint swelling or deformity. EXTREMITIES: No cyanosis, clubbing, or pedal edema. NEUROLOGICAL: Gross neurological examination did not reveal any focal deficits. SKIN: No rashes. Results CBC & Chem 7: 07/17/19 03:02 07/17/19 03:02 Labs: Abnormal Lab Results - Last 24 Hours (Table) 07/17/19 07/17/19 07/17/19 Range/Units 03:02 03:02 03:02 WBC 0.8 L* (3.8-10.6) k/uL RBC 2.13 L (4.30-5.90) m/uL Hgb 7.0 L (13.0-17.5) gm/dL Hct 19.5 L* (39.0-53.0) % RDW 18.5 H (11.5-15.5) % Plt Count 23 L D (150-450) k/uL PT 12.4 H (9.0-12.0) sec INR 1.2 H (<1.2) Sodium 133 L (137-145) mmol/L Total Protein 6.1 L (6.3-8.2) g/dL Thrombosis Risk Factor Assmnt - Choose All That Apply Each Risk Factor Represents 3 Points: Age 75 years or older Thrombosis Risk Factor Assessment Total Risk Factor Score: 3 Thrombosis Risk Factor Assessment Level: Moderate Risk Assessment and Plan Plan: -Chest pain: Rule out a concurrent syndromes chest pain is most probably related to GI causes that his gastric esophageal reflux disease or peptic ulcer disease patient will be started on Protonix cardiology will be consulted cardiac causes cannot be completely ruled out as patient has history of coronary disease and the patient is severely anemic may have contributed to his chest pain patient will be transfused with irradiated PRBC tomorrow after the patient probably will be discharged tomorrow -Acute myeloid leukemia is on chemotherapy please refer to oncology documentation for further details -Pancytopenia secondary to chemotherapy -Neutropenia secondary to chemotherapy for which Patient is on prophylactic antibiotics patient is not febrile at this time His next and-gastroesophageal reflux disease -Hyperlipidemia -Hypertension -History of prostate cancer in the past which is in remission at this time. DVT prophylaxis with subcutaneous heparin
[2019-07-17] MEDS ORDERED: VENETOCLAX 100 MG PO SCH (14:00)
[2019-07-17] MEDS: HEPARIN SODIUM,PORCINE 5,000 UNIT/ML 1 ML VIAL SQ SCH ×2 (16:00→23:09)
[2019-07-17] MEDS ORDERED: POLYETHYLENE GLYCOL 3350 17 GM POWD.PACK PO STA (17:48)
[2019-07-17] MEDS ORDERED: VENETOCLAX PO SCH (18:00)
[2019-07-17] MEDS ORDERED: ATORVASTATIN 40 MG TAB PO SCH (21:00)
[2019-07-17] MEDS ORDERED: METOPROLOL TARTRATE 12.5 MG TAB PO SCH (21:00)
[2019-07-17] MEDS: RANOLAZINE 500 MG TAB.ER.12H PO SCH (23:08)
[2019-07-18] MEDS: SENNOSIDES-DOCUSATE SODIUM 1 EACH TAB PO SCH ×2 (05:42→08:36)
[2019-07-18 06:55] LABS: Anisocytosis Slight; HGB 8.2 gm/dL (13.0-17.5); MCH 32.6 pg (25.0-35.0); MCHC 35.4 g/dL (31.0-37.0); MCV 91.9 fL (80.0-100.0); Mean Platelet Volume 9.5; RBC 2.51 m/uL (4.30-5.90); RDW 18.3 % (11.5-15.5)
[2019-07-18 06:57] LABS: Platelet Count 31 k/uL (150-450)
[2019-07-18 07:23] LABS: Albumin 3.4 g/dL (3.5-5.0); Calcium 8.8 mg/dL (8.4-10.2); Lymphocytes # (M) 0.86 k/uL (1.0-4.8); Magnesium 2.4 mg/dL (1.6-2.3); Monocytes # (M) 0.02 k/uL (0-1.0); Neutrophils % (M) 12 %; Nucleated Red Blood Cells 0 /100 WBC (0-0); Potassium 4.6 mmol/L (3.5-5.1); Total Bilirubin 1.2 mg/dL (0.2-1.3); Total Cells Counted 100; Total Protein 6.1 g/dL (6.3-8.2)
[2019-07-18 07:27] LABS: Neutrophils # (M) 0.12 k/uL (1.3-7.7)
[2019-07-18] MEDS: HEPARIN SODIUM,PORCINE 5,000 UNIT/ML 1 ML VIAL SQ SCH (08:20)
[2019-07-18 08:26] VITALS: RESP 16
[2019-07-18] MEDS: RANOLAZINE 500 MG TAB.ER.12H PO SCH (08:36)
[2019-07-18] MEDS: LEVOFLOXACIN 500 MG TAB PO SCH (08:36)
[2019-07-18] MEDS: PANTOPRAZOLE 40 MG/10 ML VIAL IVP SCH (08:36)
[2019-07-18] MEDS ORDERED: METOPROLOL TARTRATE 25 MG TAB PO SCH (09:00)
[2019-07-18] MEDS ORDERED: ISOSORBIDE MONONITRATE ER 30 MG TAB.ER.24H PO SCH (09:00)
[2019-07-18] MEDS ORDERED: LISINOPRIL 5 MG TAB PO SCH (09:00)
[2019-07-18] MEDS ORDERED: NON FORMULARY DRUG (Ubidecarenone [Co Q-10] 100 MG) PO SCH (09:00)
[2019-07-18] MEDS ORDERED: ASPIRIN 325 MG TAB PO SCH (09:00)
[2019-07-18] MEDS ORDERED: POLYETHYLENE GLYCOL 3350 17 GM POWD.PACK PO SCH (09:00)
[2019-07-18] MEDS ORDERED: ALLOPURINOL 100 MG TAB PO SCH (09:00)
[2019-07-18] MEDS ORDERED: ISOSORBIDE MONONITRATE ER 60 MG TAB.ER.24H PO SCH (09:00)
--- NOTE | 2019-07-18 10:10 | CONS ---
CONSULTATION Mr. Vivas is a 79-year-old male with recently diagnosed acute myeloid leukemia, receiving chemotherapy, has received transfusion, who presented with chest discomfort. The discomfort woke him up from sleep. He is pain free at this time. He did not have any associated symptoms. Apparently, he ate late and he was not quite sure if it is related to that. He has a history of coronary artery disease and has underwent cardiac catheterization twice recently by Dr. Bray and Dr. Michelle, was told that has obstructive disease, the details are not available and did not have any intervention done. Full detail of that is not available to me. He has worsening dyspnea on exertion. He has no clear dizziness or palpitation. No syncope. No PND, orthopnea, or peripheral edema. His gross factors remarkable for hypertension. He is a nonsmoker, nondiabetic. MEDICATION: His medications at home include Lipitor 40 mg daily, vitamin D, allopurinol, isosorbide mononitrate 30 mg daily, Levaquin, lisinopril 5 mg daily, metoprolol tartrate 12.5 mg twice a day, Ranexa 500 mg twice a day, coenzyme Q10. REVIEW OF SYSTEMS: RESPIRATORY SYSTEM: He has no recent wheezing. No cough. No history of documented obstructive lung disease. GI SYSTEM: He had a recent GI bleeding related to hemorrhoids. No nausea. No vomiting. SYSTEM: No dysuria, hematuria. NERVOUS SYSTEM: No stroke or seizure. PHYSICAL EXAMINATION: He is a 79-year-old male, alert, oriented, in no apparent distress. Blood pressure 130/60 with a heart rate in the 70s. HEAD: Normocephalic. EYES: Sclerae nonicteric, conjunctivae are pale. LUNGS: Clear to auscultation. HEART: Regular rate and rhythm, S1, S2. No S3. No rub or gallop appreciated. ABDOMEN: Soft, nontender, positive bowel sounds, no organomegaly. EXTREMITIES: No edema. intact distal pulses. LAB DATA: Revealed a white blood cell of 1, hemoglobin of 8.2, platelet count of 31,000. BUN and creatinine 19 and 1.15, potassium 4.6. Troponin less than 0.012 for 2 samples. NT proBNP of 796. EKG revealed a sinus mechanism, left axis with nonspecific ST-T wave changes. IMPRESSION: 1. Chest discomfort of unclear etiology. Cannot exclude ischemic in origin, although there is no evidence of acute coronary syndrome. 2. History of coronary artery disease, details not available. 3. Acute myeloid leukemia, receiving chemotherapy. 4. Pancytopenia. 5. History of hypertension. 6. History of hyperlipidemia. RECOMMENDATION: I will try to obtain the results of his prior cardiac workup. I will increase the dose of his nitrate and his beta vonda. The patient is not a candidate for any aggressive cardiac workup. Depending on his progress, further recommendation will be made. Thank you for this consult. We will follow with you. MMDAPHNEL / IJN: [id number] /
--- NOTE | 2019-07-18 11:35 | ECHOF ---
Referral Reason:cad MEASUREMENTS -------- HEIGHT: 167.6 cm WEIGHT: 65.8 kg BP: IVSd: 1.3 cm (0.6 - 1.1) LVIDd: 3.6 cm (3.9 - 5.3) LVPWd: 1.1 cm (0.6 - 1.1) IVSs: 1.7 cm LVIDs: 1.8 cm LVPWs: 1.8 cm Ao Diam: 3.3 cm (2.0 - 3.7) AV Cusp: 2.1 cm (1.5 - 2.6) LA Diam: 3.7 cm (2.7 - 3.8) MV EXCURSION: 15.271 mm (> 18.000) MV EF SLOPE: 75 mm/s (70 - 150) EPSS: 0.8 cm MV E Garland: 0.68 m/s MV DecT: 313 ms MV A [place]: 0.96 m/s MV E/A Ratio: 0.71 RAP: 5.00 mmHg RVSP: 11.59 mmHg FINDINGS -------- Sinus rhythm. This was a technically good study. The left ventricular size is normal. There is mild concentric left ventricular hypertrophy. Overa ll left ventricular systolic function is normal with, an EF between 55 - 60 %. The right ventricle is normal in size. The left atrial size is normal. The right atrial size is normal. The aortic valve is trileaflet and appears structurally normal. The mitral valve is normal. Mild mitral regurgitation is present. The tricuspid valve appears structurally normal. Mild tricuspid regurgitation present. Right vent ricular systolic pressure is normal at < 35 mmHg. There is no pulmonic regurgitation present. The aortic root size is normal. Normal inferior vena cava with normal inspiratory collapse consistent with estimated right atrial pre ssure of 5 mmHg. There is a trivial pericardial effusion present. CONCLUSIONS -------- 1. Sinus rhythm. 2. This was a technically good study. 3. The left ventricular size is normal. 4. There is mild concentric left ventricular hypertrophy. 5. Overall left ventricular systolic function is normal with, an EF between 55 - 60 %. 6. The right ventricle is normal in size. 7. The left atrial size is normal. 8. The right atrial size is normal. 9. The aortic valve is trileaflet and appears structurally normal. 10. The mitral valve is normal. 11. Mild mitral regurgitation is present. 12. The tricuspid valve appears structurally normal. 13. Mild tricuspid regurgitation present. 14. Right ventricular systolic pressure is normal at < 35 mmHg. 15. There is no pulmonic regurgitation present. 16. The aortic root size is normal. 17. Normal inferior vena cava with normal inspiratory collapse consistent with estimated right atrial pressure of 5 mmHg. 18. There is a trivial pericardial effusion present. SALES ANALYST: Mini Kaur RDCS
[2019-07-18 11:44] VITALS: BP 107/69; PULSE 58; TEMP 98
--- NOTE | 2019-07-18 14:13 | P.PN ---
Subjective Progress Note Date: 07/18/19 Principal diagnosis: AML Patient feeling better today, moved bowels status post PRBC and hemoglobin 8.2 Objective - Vital Signs Vital signs: Vital Signs Temp 98.0 F 07/18/19 11:42 Pulse 58 L 07/18/19 11:42 Resp 16 07/18/19 11:42 BP 107/69 07/18/19 11:42 Pulse Ox 92 L 07/18/19 11:42 Intake & Output 07/17/19 07/18/19 07/18/19 18:59 06:59 18:59 Intake Total 900 360 Output Total 2 Balance 898 360 Weight 66.2 kg Intake: Oral 590 360 Blood Product 310 Rc Irr As1 Unit 310 [id number] Output: Urine 2 Other: # Voids 2 1 1 - Exam - Constitutional General appearance: no acute distress - EENT Eyes: EOMI, PERRLA ENT: hearing grossly normal, normal oropharynx - Neck Neck: no lymphadenopathy Thyroid: bilateral: normal size - Respiratory Respiratory: bilateral: CTA - Cardiovascular Rhythm: regular Heart sounds: normal: S1, S2 - Gastrointestinal General gastrointestinal: normal bowel sounds, soft - Integumentary Integumentary: normal - Neurologic Neurologic: CNII-XII intact - Musculoskeletal Musculoskeletal: generalized weakness, strength equal bilaterally - Psychiatric Psychiatric: A&O x's 3, appropriate affect - Labs CBC & Chem 7: 07/18/19 06:43 07/18/19 06:43 Labs: Abnormal Lab Results - Last 24 Hours (Table) 07/17/19 07/18/19 07/18/19 Range/Units 10:50 06:43 06:43 WBC 1.0 L* (3.8-10.6) k/uL RBC 2.51 L (4.30-5.90) m/uL Hgb 8.2 L (13.0-17.5) gm/dL Hct 23.0 L (39.0-53.0) % RDW 18.3 H (11.5-15.5) % Plt Count 31 L (150-450) k/uL Neutrophils # (Manual) 0.12 L* (1.3-7.7) k/uL Lymphocytes # (Manual) 0.86 L (1.0-4.8) k/uL Sodium 136 L (137-145) mmol/L Magnesium 2.4 H (1.6-2.3) mg/dL Total Protein 6.1 L (6.3-8.2) g/dL Albumin 3.4 L (3.5-5.0) g/dL Crossmatch See Detail Assessment and Plan Plan: Assessment and Plan Chest pain - Likely secondary to anemia, Resolved after blood transfusion Acute myeloid leukemia - Repeat Bone Marrow Biopsy tomorrow 07/19/19 - COntinue Venclexta at this time Pancytopenia - Secondary to AML - CBC Mondays and in office at Dr. Tam Abdominal pain - Secondary to constipation: resolved Physician Attest: I have completed the full history and physical and agree with above dictation, dictated as a scribe
== END 2019-07-18 15:16 | disposition home or self-care (01) ==
LOC: EC 02:43 → 3SCARD 04:45 → EC 05:50
PROVIDERS: ADMIT Family Medicine; ATTEND Family Medicine
DX: R07.89 Other chest pain (principal); D61.810 Antineoplastic chemotherapy induced pancytopenia; C92.00 Acute myeloblastic leukemia, not having achieved remission; T45.1X5A Adverse effect of antineoplastic and immunosuppressive drugs, initial encounter; K21.9 Gastro-esophageal reflux disease without esophagitis; I25.10 Atherosclerotic heart disease of native coronary artery without angina pectoris; I10 Essential (primary) hypertension; E78.5 Hyperlipidemia, unspecified; J84.10 Pulmonary fibrosis, unspecified; K59.00 Constipation, unspecified; K62.5 Hemorrhage of anus and rectum; R53.1 Weakness; Z79.2 Long term (current) use of antibiotics; Z79.899 Other long term (current) drug therapy; Z85.46 Personal history of malignant neoplasm of prostate; Z87.891 Personal history of nicotine dependence; Z95.5 Presence of coronary angioplasty implant and graft
CPT/HCPCS: 36430; 96376 ×2; 96372; 96374; 93005 ×2; 99285; 36415; 93306; 86900; 86901; 83880; 80053 ×2; 83605; 83615; 83735 ×2; 84100; 84484; 85025 ×2; 85610; 85730; 86850; 86920; 74022; G0378 ×2; P9040; J1644; C9113 ×2

== ENCOUNTER → 2019-08-31 | Outpatient (CLI) | payer MEDICARE ==
--- NOTE | 2019-08-31 10:27 | CT ---
EXAMINATION TYPE: CT angio chest DATE OF EXAM: 08/31/2019 COMPARISON: CTA chest October 15, 2017 HISTORY: Chest pain. CT DLP: 226 mGycm. Automated Exposure Control for Dose Reduction was Utilized. CONTRAST: CTA scan of the thorax is performed with IV Contrast, patient injected with 45 mL of Isovue 370, pulm onary embolism protocol. MIP Images are created on CT scanner and reviewed. FINDINGS: LUNGS: Mild underlying emphysematous change with mild biapical pleural/parenchymal scarring. Mild to moderate posterior bilateral lower lung linear scarring and/or atelectasis. No suspicious greater forrest n 4 mm nodules or masses. Occasional micronodule for reference superior aspect left lower lobe axial image 64 measuring 2 mm. Stable 4 mm calcified nodule or granuloma in the lingula on image 74. MEDIASTINUM: There is slightly suboptimal bolus with most dense contrast in the SVC, but there is no CT evidence for pulmonary embolism. There are no greater than 1 cm noncalcified hilar or mediastinal lymph nodes. Prominent but calcified left hilar lymph nodes. No cardiomegaly or pericardial effusio n is seen. There is left-sided PICC line terminating in SVC. There is fairly severe three-vessel ramirez nary artery calcification and/or stents, correlate clinically. OTHER: Slight dextroconvex scoliotic curvature is fairly moderate multilevel spurring in the thoracic spine. Scattered calcifications or granulomas throughout the spleen are redemonstrated. Mild degree of subareolar gynecomastia bilaterally redemonstrated. IMPRESSION: No CT evidence of acute pulmonary embolism. Evidence of old granulomatous disease. No karen picious acute pulmonary process. Severe three-vessel coronary artery calcification and/or coronary st ents noted. Correlate clinically.
== END | disposition home or self-care (01) ==
LOC: RADCTMAIN 08:28
PROVIDERS: ATTEND Internal Medicine Hematology & Oncology
DX: I25.10 Atherosclerotic heart disease of native coronary artery without angina pectoris (principal); Z95.5 Presence of coronary angioplasty implant and graft
CPT/HCPCS: 82565; 84520; 71275; Q9967

== ENCOUNTER 2019-12-21 16:48 | Emergency (ER) | payer MEDICARE ==
[2019-12-21 17:08] VITALS: RESP 18; TEMP 98
[2019-12-21] MEDS ORDERED: SODIUM CHLORIDE 0.9% 500 ML 500 ML IV STA (17:16)
[2019-12-21 17:46] LABS: Anisocytosis Slight; HGB 7.1 gm/dL (13.0-17.5); MCH 35.9 pg (25.0-35.0); MCHC 36.5 g/dL (31.0-37.0); MCV 98.5 fL (80.0-100.0); Macrocytosis Slight; Mean Platelet Volume 9.2; RBC 1.97 m/uL (4.30-5.90)
[2019-12-21 17:47] LABS: INR 1.2 (<1.2); Prothrombin Time 11.8 sec (9.0-12.0)
[2019-12-21 17:50] LABS: WBC 1.2 k/uL (3.8-10.6)
[2019-12-21 17:51] LABS: HCT 19.4 % (39.0-53.0)
[2019-12-21] MEDS ORDERED: MAGNESIUM CITRATE 296 ML BOTTLE PO ONE (17:54)
[2019-12-21 18:00] LABS: Albumin 3.4 g/dL (3.5-5.0); Calcium 9.1 mg/dL (8.4-10.2); Potassium 3.9 mmol/L (3.5-5.1); Total Bilirubin 0.9 mg/dL (0.2-1.3); Total Protein 5.7 g/dL (6.3-8.2)
--- NOTE | 2019-12-21 18:03 | ED ---
Dizziness HPI - General Chief Complaint: Dizziness Stated Complaint: Dizziness,Weakness Time Seen by Provider: 12/21/19 17:00 Source: patient, EMS Mode of arrival: EMS Limitations: no limitations - History of Present Illness Initial Comments: Patient is a 79-year-old male who presents to the emergency department reported dizziness. He has a history of AML and is currently on chemotherapy. States that he will have chemotherapy 7 days in a row. His last treatment was yesterday. He had to go today to get an infusion of Neulasta. He sees Dr. Tam. Reports that at noon today, previous to his infusion she had an episode of feeling off balance. This then subsided and he went and completed his infusion. Afterward states that he walked to the [place] while he was in the park he once again had recurrence of his symptoms. [place] as if he was off balance and had to lay on the ground. Denies vertiginous symptoms or lightheadedness. Denied any chest pain, nausea, vomiting or shortness of breath. EMS was alerted in transfer the patient to the hospital. Denies episodes of similar symptoms. No recent fevers or chills. Denies any medication changes. No other alleviating, precipitating or modifying factors - Related Data Home Medications Medication Instructions Recorded Confirmed Atorvastatin [Lipitor] 40 mg PO HS 01/13/18 12/21/19 Nitroglycerin Sl Tabs [Nitrostat] 0.4 mg SL Q5M PRN 01/13/18 12/21/19 Cholecalciferol [Vitamin D3 (25 1,000 unit PO DAILY 06/13/19 12/21/19 Mcg = 1000 Iu)] Cyanocobalamin (Vitamin B-12) 1,000 mcg PO DAILY 06/13/19 12/21/19 [Vitamin B-12] Ranolazine [Ranolazine ER] 500 mg PO BID 06/13/19 12/21/19 Ubidecarenone [Co Q-10] 100 mg PO DAILY 06/13/19 12/21/19 Ondansetron HCl [Zofran] 8 mg PO QID PRN 07/11/19 12/21/19 Venetoclax [Venclexta] 400 mg PO HS 07/11/19 12/21/19 allopurinoL [Zyloprim] 100 mg PO DAILY 07/11/19 12/21/19 Sennosides-Docusate Sodium 1 tab PO BID 07/17/19 12/21/19 [Senokot-S] lisinopriL [Zestril] 2.5 mg PO DAILY 12/21/19 12/21/19 Previous Rx's Medication Instructions Recorded Polyethylene Glycol 3350 [Miralax] 17 gm PO DAILY #527 gm 07/13/19 Isosorbide Mononitrate ER [Imdur] 60 mg PO DAILY #30 tab.er.24h 07/18/19 Metoprolol Tartrate [Lopressor] 25 mg PO BID #60 tab 07/18/19 Omeprazole [PriLOSEC] 40 mg PO DAILY #30 cap 07/18/19 Allergies Allergy/AdvReac Type Severity Reaction Status Date / Time No Known Allergies Allergy Verified 12/21/19 20:45 Review of Systems ROS Statement: Those systems with pertinent positive or pertinent negative responses have been documented in the HPI. ROS Other: All systems not noted in ROS Statement are negative. Past Medical History Past Medical History: Coronary Artery Disease (CAD), Cancer, GERD/Reflux, Hyperlipidemia, Hypertension, Prostate Disorder Additional Past Medical History / Comment(s): prostate ca 2012(sx only). psoriases on scalp, Leukemia APR 2019, last chemo 12/20/19 History of Any Multi-Drug Resistant Organisms: None Reported Past Surgical History: Heart Catheterization, Hernia Repair, Prostate Surgery, Tonsillectomy Past Anesthesia/Blood Transfusion Reactions: No Reported Reaction Past Psychological History: No Psychological Hx Reported Smoking Status: Never smoker Past Alcohol Use History: Occasional Past Drug Use History: None Reported - Past Family History Mother Family Medical History: No Reported History Additional Family Medical History / Comment(s): age 96 Father Additional Family Medical History / Comment(s): at age 59 had all teeth pulled and 3 days later ?blood clot/mi pt not sure General Exam Limitations: no limitations General appearance: alert, in no apparent distress Head exam: Present: atraumatic, normocephalic, normal inspection Eye exam: Present: normal appearance, PERRL, EOMI. Absent: scleral icterus, conjunctival injection, periorbital swelling ENT exam: Present: normal exam, mucous membranes moist Neck exam: Present: normal inspection. Absent: tenderness, meningismus, lymphadenopathy Respiratory exam: Present: normal lung sounds bilaterally. Absent: respiratory distress, wheezes, rales, rhonchi, stridor Cardiovascular Exam: Present: regular rate, normal rhythm, normal heart sounds. Absent: systolic murmur, diastolic murmur, rubs, gallop, clicks GI/Abdominal exam: Present: soft, normal bowel sounds. Absent: distended, tenderness, guarding, rebound, rigid Extremities exam: Present: normal inspection, full ROM, normal capillary refill. Absent: tenderness, pedal edema, joint swelling, calf tenderness Back exam: Present: normal inspection Neurological exam: Present: alert, oriented X3, CN II-XII intact, other (heel to harmon, finger to nose is symmetric bilaterally. No truncal ataxia. Patient ambulates without difficulty. Negative pronator drift) Psychiatric exam: Present: normal affect, normal mood Skin exam: Present: warm, dry, intact, normal color. Absent: rash Course Vital Signs 12/21/19 12/21/19 16:58 20:56 Temperature 98 F Pulse Rate 70 65 Respiratory 18 18 Rate Blood Pressure 101/66 117/60 O2 Sat by Pulse 100 98 Oximetry - Reevaluation(s) Reevaluation #1: 12/21/19 20:03 Called radiology in regards to not having a read CTA at this time. They stated it should be the next study for Dr. Birmingham to read EKG Findings - EKG Comments: EKG Findings:: EKG demonstrates a normal sinus rhythm with ventricular rate of 68. VT interval 186. QRS 94. QTC of 450. No acute ST segment elevations or depressions concerning for ischemic changes Medical Decision Making - Medical Decision Making Upon arrival the patient was placed into room 8. A thorough history and physical exam was performed. Patient does not demonstrate any truncal ataxia. Finger to nose is symmetric bilaterally. Reports to improved symptoms at this time. I did recommend completing an EKG, laboratory studies and imaging of the patient's brain for which she was resistant but did comply. Laboratory studies demonstrated pancytopenia for which she is chronic for the patient. Sodium mildly low at 133. Creatinine 1.2. CT of the brain is negative for any acute intracranial process. 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 I discussed these results with the patient. I did recommend hospital admission for ataxia however the patient refused. He states he feels fine at this time and will follow up with his primary care physician. I did discuss the patient could have recurrence of his symptoms and he understands this. He is of sound mind and would like to leave at this time. I notified him that he has the b asilar tip aneurysm for which she will need to be monitored for. The patient understood this. He has any new or worsening symptoms or agrees to hospital admission, he should return to the emergency room. Patient was discharged home in stable condition - Lab Data Result diagrams: 12/21/19 17:22 12/21/19 17:22 Lab Results 12/21/19 12/21/19 12/21/19 Range/Units 17:22 17: 17:22 WBC 1.2 L* (3.8-10.6) k/uL RBC 1.97 L (4.30-5.90) m/uL Hgb 7.1 L (13.0-17.5) gm/dL Hct 19.4 L* (39.0-53.0) % MCV 98.5 (80.0-100.0) fL MCH 35.9 H (25.0-35.0) pg MCHC 36.5 (31.0-37.0) g/dL RDW 19.0 H (11.5-15.5) % Plt Count 31 L (150-450) k/uL Neutrophils % (Manual) 8 % Lymphocytes % (Manual) 89 % Monocytes % (Manual) 3 % Neutrophils # (Manual) 0.10 L* (1.3-7.7) k/uL Lymphocytes # (Manual) 1.07 (1.0-4.8) k/uL Monocytes # (Manual) 0.04 (0-1.0) k/uL Nucleated RBCs 0 (0-0) /100 WBC Manual Slide Review Performed Anisocytosis Slight Macrocytosis Slight PT 11.8 (9.0-12.0) sec INR 1.2 H (<1.2) Sodium 133 L (137-145) mmol/L Potassium 3.9 (3.5-5.1) mmol/L Chloride 103 (98-107) mmol/L Carbon Dioxide 24 (22-30) mmol/L Anion Gap 6 mmol/L BUN 19 (9-20) mg/dL Creatinine 1.26 H (0.66-1.25) mg/dL Est GFR (CKD-EPI)AfAm 62 (>60 ml/min/1.73 sqM) Est GFR (CKD-EPI)NonAf 54 (>60 ml/min/1.73 sqM) Glucose 129 H (74-99) mg/dL Calcium 9.1 (8.4-10.2) mg/dL Total Bilirubin 0.9 (0.2-1.3) mg/dL AST 20 (17-59) U/L ALT 15 (4-49) U/L Alkaline Phosphatase 84 (38-126) U/L Troponin I (0.000-0.034) ng/mL Total Protein 5.7 L (6.3-8.2) g/dL Albumin 3.4 L (3.5-5.0) g/dL Urine Color Urine Appearance (Clear) Urine pH (5.0-8.0) Ur Specific [place] (1.001-1.035) Urine Protein (Negative) Urine Glucose (UA) (Negative) Urine Ketones (Negative) Urine Blood (Negative) Urine Nitrite (Negative) Urine Bilirubin (Negative) Urine Urobilinogen (<2.0) mg/dL Ur Leukocyte Esterase (Negative) 12/21/19 12/21/19 Range/Units 17:22 18:25 WBC (3.8-10.6) k/uL RBC (4.30-5.90) m/uL Hgb (13.0-17.5) gm/dL Hct (39.0-53.0) % MCV (80.0-100.0) fL MCH (25.0-35.0) pg MCHC (31.0-37.0) g/dL RDW (11.5-15.5) % Plt Count (150-450) k/uL Neutrophils % (Manual) % Lymphocytes % (Manual) % Monocytes % (Manual) % Neutrophils # (Manual) (1.3-7.7) k/uL Lymphocytes # (Manual) (1.0-4.8) k/uL Monocytes # (Manual) (0-1.0) k/uL Nucleated RBCs (0-0) /100 WBC Manual Slide Review Anisocytosis Macrocytosis PT (9.0-12.0) sec INR (<1.2) Sodium (137-145) mmol/L Potassium (3.5-5.1) mmol/L Chloride (98-107) mmol/L Carbon Dioxide (22-30) mmol/L Anion Gap mmol/L BUN (9-20) mg/dL Creatinine (0.66-1.25) mg/dL Est GFR (CKD-EPI)AfAm (>60 ml/min/1.73 sqM) Est GFR (CKD-EPI)NonAf (>60 ml/min/1.73 sqM) Glucose (74-99) mg/dL Calcium (8.4-10.2) mg/dL Total Bilirubin (0.2-1.3) mg/dL AST (17-59) U/L ALT (4-49) U/L Alkaline Phosphatase (38-126) U/L Troponin I <0.012 (0.000-0.034) ng/mL Total Protein (6.3-8.2) g/dL Albumin (3.5-5.0) g/dL Urine Color Yellow Urine Appearance Clear (Clear) Urine pH 8.0 (5.0-8.0) Ur Specific [place] 1.050 H (1.001-1.035) Urine Protein Negative (Negative) Urine Glucose (UA) Negative (Negative) Urine Ketones Negative (Negative) Urine Blood Negative (Negative) Urine Nitrite Negative (Negative) Urine Bilirubin Negative (Negative) Urine Urobilinogen <2.0 (<2.0) mg/dL Ur Leukocyte Esterase Negative (Negative) Disposition Clinical Impression: Ataxia, Pancytopenia, Acute myeloid leukemia Disposition: HOME SELF-CARE Condition: Stable Instructions (If sedation given, give patient instructions): Dizziness (ED) Additional Instructions: I recommended hospital admission. Please call your doctor in the morning for follow-up appointment. Return to the emergency room for any new or worsening symptoms Is patient prescribed a controlled substance at d/c from ED?: No Referrals: Deidre Calabrese MD [Primary Care Provider] - 1-2 days Time of Disposition: 20:50
[2019-12-21 18:09] LABS: Neutrophils % (M) 8 %
[2019-12-21 18:10] LABS: Lymphocytes # (M) 1.07 k/uL (1.0-4.8); Monocytes # (M) 0.04 k/uL (0-1.0); Nucleated Red Blood Cells 0 /100 WBC (0-0); Total Cells Counted 100
--- NOTE | 2019-12-21 18:10 | CT ---
EXAMINATION TYPE: CT brain wo con DATE OF EXAM: 12/21/2019 COMPARISON: None INDICATION: Dizziness and weakness DLP: 1079.8 mGycm, Automated exposure control for dose reduction was used. CONTRAST: None CT of the brain is performed utilizing 3 mm thick sections through the posterior fossa and 3 mm thick sections through the remaining calvarium. Study is performed within 24 hours of arrival to the hosp ital. No abnormal hyperdensity is present to suggest an acute intracranial hemorrhage. No mass lesion is evident. No acute infarcts are evident. Ventricles and sulci are appropriate for the patient age. Paranasal sinuses and mastoid air cells within the [id number] are clear. IMPRESSIONS: 1. No acute intracranial process.
[2019-12-21 18:11] LABS: Platelet Count 31 k/uL (150-450)
[2019-12-21 18:34] LABS: Appearance,Urine Clear (Clear); Bilirubin,Urine Negative (Negative); Blood,Urine Negative (Negative); Color,Urine Yellow; Glucose,Urine (UA) Negative (Negative); Ketones,Urine Negative (Negative); Leukocyte Esterase,Urine Negative (Negative); Nitrite,Urine Negative (Negative); Protein,Urine Negative (Negative); Urobilinogen,Urine <2.0 mg/dL (<2.0)
--- NOTE | 2019-12-21 20:35 | CT ---
EXAMINATION TYPE: CT angio head neck DATE OF EXAM: 12/21/2019 HISTORY: Dizziness, weakness COMPARISON: None CT DLP: 398.7 mGycm. Automated Exposure Control for Dose Reduction was Utilized. TECHNIQUE: CTA scan of the neck is performed with IV Contrast, patient injected with 65 mL of Isovue 370, axial images are obtained, coronal and sagittal reformatted images are reviewed. Three-D recons tructed images are created on an independent workstation and reviewed. Source images are reviewed. FINDINGS: Carotid/Vascular Structures: There is a three-vessel arch. Minimal plaquing is at the left carotid bi furcation. No significant flow-limiting stenosis is evident in either internal carotid artery. Verteb ral arteries are codominant. 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 Posterior cerebral vascul ature is unremarkable. Internal carotid arteries bifurcate normally into A1 and M1 segments. A2 segme nts are normal. The anterior communicating artery is patent. Posterior communicating arteries are not identified. IMPRESSION: 1. 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 Report was called to Dr. Childers by Dr. Birmingham by tele phone 2030 hours 12/21/2019. 2. Remainder the [place] of [place] appears within normal limits. 3. No significant flow-limiting stenosis carotid bifurcations.
[2019-12-21 21:04] VITALS: BP 117/60; PULSE 65
== END 2019-12-21 21:02 | disposition home or self-care (01) ==
LOC: EC 16:48
DX: C92.00 Acute myeloblastic leukemia, not having achieved remission (principal); D61.818 Other pancytopenia; R27.0 Ataxia, unspecified; I72.5 Aneurysm of other precerebral arteries; I25.10 Atherosclerotic heart disease of native coronary artery without angina pectoris; K21.9 Gastro-esophageal reflux disease without esophagitis; E78.5 Hyperlipidemia, unspecified; I10 Essential (primary) hypertension; Z79.899 Other long term (current) drug therapy; Z85.46 Personal history of malignant neoplasm of prostate; Z92.21 Personal history of antineoplastic chemotherapy; Z53.20 Procedure and treatment not carried out because of patient's decision for unspecified reasons; Z95.5 Presence of coronary angioplasty implant and graft; Z98.890 Other specified postprocedural states
CPT/HCPCS: 99285; 96360; 36415; 93005; 80053; 84484; 85025; 85610; 81003; 70496; 70450; 70498; Q9967

== ENCOUNTER 2019-12-28 18:00 | Inpatient (IN) | payer MEDICARE ==
[2019-12-28] MEDS ORDERED: SODIUM CHLORIDE 0.9% 500 ML 500 ML IV STA (18:14)
[2019-12-28] MEDS ORDERED: SODIUM CHLORIDE 0.9% 1,000 ML IV STA (18:14)
--- NOTE | 2019-12-28 18:51 | ED ---
Recheck HPI - General Chief Complaint: Recheck/Abnormal Lab/Rx Stated Complaint: needs blood transfusion Time Seen by Provider: 12/28/19 18:11 Source: patient, RN notes reviewed, old records reviewed Mode of arrival: wheelchair Limitations: no limitations - History of Present Illness Initial Comments: This is a 79-year-old male DF for evaluation patient sent in today for evaluation regarding abnormal lab values likely low hemoglobin. Patient himself does admit to feeling weak and tired fatigued lightheaded. Dizzy at times, patient was seen by his oncologist today and sent to the ER for further evaluation MD Complaint: abnormal lab (Low hemoglobin) -: unknown Returns Today for: Called Because of Abnormal Lab/Test Symptoms Since Prior Visit: improved (Worsening weakness), worsening pain Context: called for abnormal lab result Associated Symptoms: malaise - Related Data Home Medications Medication Instructions Recorded Confirmed Atorvastatin [Lipitor] 40 mg PO HS 01/13/18 12/21/19 Nitroglycerin Sl Tabs [Nitrostat] 0.4 mg SL Q5M PRN 01/13/18 12/21/19 Cholecalciferol [Vitamin D3 (25 1,000 unit PO DAILY 06/13/19 12/21/19 Mcg = 1000 Iu)] Cyanocobalamin (Vitamin B-12) 1,000 mcg PO DAILY 06/13/19 12/21/19 [Vitamin B-12] Ranolazine [Ranolazine ER] 500 mg PO BID 06/13/19 12/21/19 Ubidecarenone [Co Q-10] 100 mg PO DAILY 06/13/19 12/21/19 Ondansetron HCl [Zofran] 8 mg PO QID PRN 07/11/19 12/21/19 Venetoclax [Venclexta] 400 mg PO HS 07/11/19 12/21/19 allopurinoL [Zyloprim] 100 mg PO DAILY 07/11/19 12/21/19 Sennosides-Docusate Sodium 1 tab PO BID 07/17/19 12/21/19 [Senokot-S] lisinopriL [Zestril] 2.5 mg PO DAILY 12/21/19 12/21/19 Previous Rx's Medication Instructions Recorded Polyethylene Glycol 3350 [Miralax] 17 gm PO DAILY #527 gm 07/13/19 Isosorbide Mononitrate ER [Imdur] 60 mg PO DAILY #30 tab.er.24h 07/18/19 Metoprolol Tartrate [Lopressor] 25 mg PO BID #60 tab 07/18/19 Omeprazole [PriLOSEC] 40 mg PO DAILY #30 cap 07/18/19 Allergies Allergy/AdvReac Type Severity Reaction Status Date / Time No Known Allergies Allergy Verified 12/28/19 18:06 Review of Systems ROS Statement: Those systems with pertinent positive or pertinent negative responses have been documented in the HPI. ROS Other: All systems not noted in ROS Statement are negative. Past Medical History Past Medical History: Coronary Artery Disease (CAD), Cancer, GERD/Reflux, Hyperlipidemia, Hypertension, Prostate Disorder Additional Past Medical History / Comment(s): prostate ca 2012(sx only). psoriases on scalp, Leukemia APR 2019, last chemo 12/20/19 History of Any Multi-Drug Resistant Organisms: None Reported Past Surgical History: Heart Catheterization, Hernia Repair, Prostate Surgery, Tonsillectomy Past Anesthesia/Blood Transfusion Reactions: No Reported Reaction Past Psychological History: No Psychological Hx Reported Smoking Status: Never smoker Past Alcohol Use History: Occasional Past Drug Use History: None Reported - Past Family History Mother Family Medical History: No Reported History Additional Family Medical History / Comment(s): age 96 Father Additional Family Medical History / Comment(s): at age 59 had all teeth pulled and 3 days later ?blood clot/mi pt not sure General Exam Limitations: no limitations General appearance: alert, in no apparent distress Head exam: Present: atraumatic, normocephalic, normal inspection Eye exam: Present: normal appearance, PERRL, EOMI. Absent: scleral icterus, conjunctival injection, periorbital swelling ENT exam: Present: normal exam, mucous membranes moist Neck exam: Present: normal inspection. Absent: tenderness, meningismus, lymphadenopathy Respiratory exam: Present: normal lung sounds bilaterally. Absent: respiratory distress, wheezes, rales, rhonchi, stridor Cardiovascular Exam: Present: normal rhythm, tachycardia, normal heart sounds. Absent: systolic murmur, diastolic murmur, rubs, gallop, clicks GI/Abdominal exam: Present: soft, normal bowel sounds. Absent: distended, tenderness, guarding, rebound, rigid Extremities exam: Present: normal inspection, full ROM, normal capillary refill. Absent: tenderness, pedal edema, joint swelling, calf tenderness Back exam: Present: normal inspection Neurological exam: Present: alert, oriented X3, CN II-XII intact Psychiatric exam: Present: normal affect, normal mood Skin exam: Present: warm, dry, intact, normal color. Absent: rash Course Vital Signs 12/28/19 18:06 Temperature 99.9 F H Pulse Rate 114 H Respiratory 20 Rate Blood Pressure 131/57 O2 Sat by Pulse 99 Oximetry - Reevaluation(s) Reevaluation #1: 12/28/19 19:33 Medical records reviewed Reevaluation #2: 12/28/19 19:33 Patient informed of lab results and findings, questions answered Medical Decision Making - Medical Decision Making 79 male DF for evaluation patient sent in from oncology abnormal lab tests. Patient significant pancytopenia. Patient be admitted for transfusion and fur ther monitoring - Lab Data Result diagrams: 12/28/19 18:41 12/28/19 18:41 Lab Results 12/28/19 12/28/19 12/28/19 Range/Units 18:41 18:41 18:41 WBC 0.7 L* (3.8-10.6) k/uL RBC 1.41 L (4.30-5.90) m/uL Hgb 4.9 L* D (13.0-17.5) gm/dL Hct 13.8 L* (39.0-53.0) % MCV 98.0 (80.0-100.0) fL MCH 34.6 (25.0-35.0) pg MCHC 35.3 (31.0-37.0) g/dL RDW 18.1 H (11.5-15.5) % Anisocytosis Slight Macrocytosis Slight PT 11.0 (9.0-12.0) sec INR 1.1 (<1.2) APTT 24.3 (22.0-30.0) sec Sodium 132 L (137-145) mmol/L Potassium 4.4 (3.5-5.1) mmol/L Chloride 102 (98-107) mmol/L Carbon Dioxide 22 (22-30) mmol/L Anion Gap 8 mmol/L BUN 23 H (9-20) mg/dL Creatinine 1.28 H (0.66-1.25) mg/dL Est GFR (CKD-EPI)AfAm 61 (>60 ml/min/1.73 sqM) Est GFR (CKD-EPI)NonAf 53 (>60 ml/min/1.73 sqM) Glucose 120 H (74-99) mg/dL Calcium 8.7 (8.4-10.2) mg/dL Magnesium 2.3 (1.6-2.3) mg/dL Total Bilirubin 1.0 (0.2-1.3) mg/dL AST 18 (17-59) U/L ALT 10 (4-49) U/L Alkaline Phosphatase 80 (38-126) U/L Creatine Kinase 84 (55-170) U/L Troponin I (0.000-0.034) ng/mL Total Protein 5.9 L (6.3-8.2) g/dL Albumin 3.5 (3.5-5.0) g/dL Lipase 80 (23-300) U/L 12/28/19 Range/Units 18:41 WBC (3.8-10.6) k/uL RBC (4.30-5.90) m/uL Hgb (13.0-17.5) gm/dL Hct (39.0-53.0) % MCV (80.0-100.0) fL MCH (25.0-35.0) pg MCHC (31.0-37.0) g/dL RDW (11.5-15.5) % Anisocytosis Macrocytosis PT (9.0-12.0) sec INR (<1.2) APTT (22.0-30.0) sec Sodium (137-145) mmol/L Potassium (3.5-5.1) mmol/L Chloride (98-107) mmol/L Carbon Dioxide (22-30) mmol/L Anion Gap mmol/L BUN (9-20) mg/dL Creatinine (0.66-1.25) mg/dL Est GFR (CKD-EPI)AfAm (>60 ml/min/1.73 sqM) Est GFR (CKD-EPI)NonAf (>60 ml/min/1.73 sqM) Glucose (74-99) mg/dL Calcium (8.4-10.2) mg/dL Magnesium (1.6-2.3) mg/dL Total Bilirubin (0.2-1.3) mg/dL AST (17-59) U/L ALT (4-49) U/L Alkaline Phosphatase (38-126) U/L Creatine Kinase (55-170) U/L Troponin I <0.012 (0.000-0.034) ng/mL Total Protein (6.3-8.2) g/dL Albumin (3.5-5.0) g/dL Lipase (23-300) U/L Disposition Clinical Impression: Pancytopenia, Aplastic anemia Disposition: ADMITTED IP TO THIS [facility] Condition: Serious Is patient prescribed a controlled substance at d/c from ED?: No Referrals: Deidre Calabrese MD [Primary Care Provider] - 1-2 days
[2019-12-28 19:12] LABS: Anisocytosis Slight; MCH 34.6 pg (25.0-35.0); MCHC 35.3 g/dL (31.0-37.0); Macrocytosis Slight; Mean Platelet Volume 8.4; RBC 1.41 m/uL (4.30-5.90); RDW 18.1 % (11.5-15.5)
[2019-12-28 19:13] LABS: INR 1.1 (<1.2); Partial Thromboplastin Time 24.3 sec (22.0-30.0)
[2019-12-28 19:23] LABS: HCT 13.8 % (39.0-53.0); HGB 4.9 gm/dL (13.0-17.5)
[2019-12-28 19:24] LABS: Albumin 3.5 g/dL (3.5-5.0); Calcium 8.7 mg/dL (8.4-10.2); Magnesium 2.3 mg/dL (1.6-2.3); Potassium 4.4 mmol/L (3.5-5.1); Total Protein 5.9 g/dL (6.3-8.2)
[2019-12-28 20:46] LABS: WBC 0.7 k/uL (3.8-10.6)
[2019-12-28 20:49] LABS: Platelet Count 10 k/uL (150-450)
[2019-12-29] MEDS: HYDROcodone/APAP 5-325MG 1 EACH TAB PO PRN (00:59)
[2019-12-29] MEDS: CEFEPIME 2 GM in SODIUM CHLORIDE 0.9% 100 ML IVPB SCH ×3 (01:31→21:25)
--- NOTE | 2019-12-29 04:43 | HP ---
HISTORY AND PHYSICAL I am covering for Dr. Mock. DATE OF SERVICE: 12/28/2019 CHIEF COMPLAINTS: Weakness and anemia. HISTORY OF PRESENT ILLNESS: This 79-year-old gentleman with a past medical history of CAD, history of GERD, hypertension, hyperlipidemia, history of pancytopenia, history of leukemia on chemotherapy from oncology team, was complaining of weakness which is increasing in intensity for the last one week. With severe weakness, patient was evaluated and hemoglobin was found to be 4.9, white count 0.7 and platelets are 10 and the patient was admitted for further evaluation and treatment. Creatinine is 1.28. There is no history of any fever, rigors. No history of headache, loss of consciousness or seizures. The patient had some diarrhea. PAST MEDICAL HISTORY: History of CAD, history of GERD, hypertension, hyperlipidemia. MEDICATIONS: Home medications are: 1. Zestril 2.5 mg daily. 2. Co-enzyme Q 100 mg daily. 3. Senokot-S 1 tablet p.o. b.i.d. 4. Ranolazine 500 mg p.o. b.i.d. 5. MiraLAX. 6. Prilosec 40 mg p.o. daily. 7. Nitrostat 0.4 sublingual p.r.n. 8. Lopressor. 9. Imdur. 10.Hydrocortisone cream. 11.Cyanocobalamin. 12.Cholecalciferol. 13.Lipitor. Doses are reviewed. ALLERGIES: None. FAMILY HISTORY: No history of heart disease or strokes in the family. SOCIAL HISTORY: No history of smoking. No history of alcohol intake. REVIEW OF SYSTEMS: ENT: Diminished hearing and diminished vision. CARDIOVASCULAR SYSTEM: No angina. RESPIRATORY SYSTEM: As mentioned earlier. GI: As mentioned earlier. : No dysuria. NERVOUS SYSTEM: No numbness or weakness. ALLERGY/IMMUNOLOGY: No asthma or hayfever. MUSCULOSKELETAL: As mentioned earlier. HEMATOLOGIC: As mentioned earlier. ENDOCRINE: No history of diabetes or hypothyroidism. CONSTITUTIONAL: As mentioned earlier. DERMATOLOGY: Negative. RHEUMATOLOGY: Negative. PSYCHIATRY: As mentioned earlier. PHYSICAL EXAMINATION: The patient is alert and oriented x3. Pulse is 94, blood pressure is 192/64, respiration 18, temperature is 99.9, pulse ox 100% on room air. HEENT: Conjunctivae pale. Oral mucosa pale. NECK: No jugular venous distention. No carotid bruit. No lymph node enlargement. CARDIOVASCULAR: S1, S2 muffled. RESPIRATORY: Breath sounds diminished at the bases. A few scattered rhonchi and crackles. ABDOMEN: Soft, nontender. No mass palpable. LEGS: No edema, no swelling. NERVOUS SYSTEM: Higher functions as mentioned. Moves all 4 limbs. LYMPHATICS: No lymphadenopathy of the neck, axillae or groin. SKIN: No ulcer, rash or bleeding. JOINTS: No active deforming arthropathy. LABS: CBC noted. Sodium 132. Creatinine is 1.28 and the baseline creatinine is fluctuating. The chest x-ray is not available. ASSESSMENT: 1. 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 2. Possible neutropenic sepsis. 3. Hyponatremia. 4. Increased creatinine with chronic kidney stage 3. 5. History of coronary artery disease. 6. History of gastroesophageal reflux disease. 7. Hypertension. 8. Hyperlipidemia. 9. History of prostate cancer. 10.History of cardiac catheterization. 11.History of hernia repair. RECOMMENDATIONS AND DISCUSSION: This 79-year-old gentleman presented with multiple complex medical issues, we will monitor the patient closely. Continue the current medications. Continue symptomatic treatment. Blood transfusions and platelet transfusions have been ordered. We will follow the patient closely with Hematology/Oncology. Otherwise, I would also recommend broad-spectrum antibiotics empirically. Resume the home medications. Obtain cultures. I would run the fluids to 20 mL/hour. Guarded prognosis because of multiple complex medical issues. Further recommendations to follow. A copy of dictation forwarded to Dr. Deidre Calabrese who is the primary physician. MMDAPHNEL / IJN: [id number] /
[2019-12-29 07:34] LABS: Anisocytosis Slight; Basophils % (A) 1 %; Eosinophils % (A) 1 %; HCT 23.8 % (39.0-53.0); Lymphocytes # (A) 0.5 k/uL (1.0-4.8); Lymphocytes % (A) 92 %; MCHC 35.6 g/dL (31.0-37.0); Mean Platelet Volume 8.1; Monocytes % (A) 1 %; Neutrophils % (A) 4 %; RBC 2.57 m/uL (4.30-5.90); RDW 17.5 % (11.5-15.5)
[2019-12-29] MEDS: RANOLAZINE 500 MG TAB.ER.12H PO SCH ×2 (07:40→21:27)
[2019-12-29] MEDS: CYANOCOBALAMIN 500 MCG TAB PO SCH (07:40)
[2019-12-29] MEDS: HYDROCORTISONE 1% CREAM 30 GM TUBE TOPICAL SCH ×2 (07:40→21:26)
[2019-12-29] MEDS: ISOSORBIDE MONONITRATE ER 60 MG TAB.ER.24H PO SCH (07:41)
[2019-12-29] MEDS: PANTOPRAZOLE 40 MG TABLET PO SCH (07:41)
[2019-12-29] MEDS: CHOLECALCIFEROL 1,000 UNIT TAB PO SCH (07:41)
[2019-12-29] MEDS: ATORVASTATIN 40 MG TAB PO SCH (07:41)
[2019-12-29 08:10] LABS: Platelet Count 6 k/uL (150-450); WBC 0.5 k/uL (3.8-10.6)
[2019-12-29 08:11] LABS: HGB 8.5 gm/dL (13.0-17.5); MCV 92.7 fL (80.0-100.0)
[2019-12-29] MEDS ORDERED: NON FORMULARY DRUG (Ubidecarenone [Co Q-10] 100 MG Capsule) PO SCH (09:00)
[2019-12-29] MEDS ORDERED: METOPROLOL TARTRATE 25 MG TAB PO SCH (09:00)
[2019-12-29 09:18] LABS: Poikilocytosis (M) Present
--- NOTE | 2019-12-29 09:24 | XR ---
EXAMINATION TYPE: XR chest 1V portable DATE OF EXAM: 12/29/2019 COMPARISON: NONE HISTORY: Shortness of breath TECHNIQUE: Single frontal view of the chest is obtained. FINDINGS: There is no focal air space opacity, pleural effusion, or pneumothorax seen. The cardiac silhouette size is within normal limits. The osseous structures are intact. Hyperinflation noted. P ICC line noted. Linear density left lung compatible scarring or atelectasis. IMPRESSION: COPD correlate for chronic interstitial lung disease.
[2019-12-29 12:07] LABS: African American GFR (CKD) 73.6 (60.0-200.0); Anion Gap 6.8 mmol/L (4.00-12.00); BUN/Creat Ratio 16.36 Ratio (12.00-20.00); Calcium 8.5 mg/dL (8.7-10.3); Carbon Dioxide 24.2 mmol/L (21.6-31.8); Non-African American GFR(CKD) 63.5 (60.0-200.0); Potassium 4.4 mmol/L (3.5-5.5)
[2019-12-29] MEDS: BENZOCAINE/MENTHOL LOZENG 1 EACH LOZENGE MUCOUS MEM PRN ×2 (12:54→21:33)
[2019-12-29 14:11] LABS: Appearance,Urine Clear (Clear); Bilirubin,Urine Negative (Negative); Blood,Urine Negative (Negative); Color,Urine Yellow; Glucose,Urine (UA) Negative (Negative); Ketones,Urine Negative (Negative); Leukocyte Esterase,Urine Negative (Negative); Nitrite,Urine Negative (Negative); Protein,Urine Negative (Negative); Specific Gravity,Urine 1.012 (1.001-1.035); Urobilinogen,Urine <2.0 mg/dL (<2.0)
--- NOTE | 2019-12-29 18:39 | PN ---
PROGRESS NOTE DATE OF SERVICE: 12/29/2019 This 79-year-old gentleman who was admitted with weakness and anemia also had significant pancytopenia. Patient also suspected of neutropenic sepsis. Patient was started on empiric antibiotics. The patient being closely monitored. White count 0.5. Hemoglobin is 8.5 after transfusions. Patient also given platelets also, platelets 6 today. Past medical history reviewed. REVIEW OF SYSTEMS: CARDIOVASCULAR SYSTEM: No angina. RESPIRATIONS: As mentioned earlier. GI as mentioned earlier. : No dysuria. NERVOUS SYSTEM: No numbness or weakness. CURRENT MEDICATIONS: Reviewed and include: 1. Tylenol. 2. [place]. 3. Lipitor. 4. Cepacol. 5. Cefepime. 6. Vitamin B12. 7. Hydrocortisone cream. 8. Imdur. 9. Zestril. 10.Lopressor. 11.Protonix. 12.Ranexa. 13.Doses are reviewed. PHYSICAL EXAMINATION: The patient is 70, blood pressure is 101/55, respirations 17, temperature 98.2, pulse ox 94% on room air. HEENT: Conjunctivae normal. NECK: No JVD. CARDIOVASCULAR: S1, S2 muffled. RESPIRATORY SYSTEM: Breath sounds diminished at the bases. A few scattered rhonchi. No crackles. ABDOMEN: Soft, nontender. LEGS are no edema, no swelling. LABS: CBC noted. Creatinine 1.1, improved. ASSESSMENT: 1. 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 2. Possible neutropenic sepsis. 3. Relative hypotension. 4. Acute renal failure with acute tubular necrosis prerenal renal failure. 5. Possible chronic kidney stage 3 baseline. 6. Hyponatremia. 7. History of coronary artery disease. 8. History of gastroesophageal reflux disease. 9. Hypertension. 10.Hyperlipidemia. 11.History of prostate cancer. 12.History of cardiac catheterization. 13.History of hernia repair. RECOMMENDATIONS AND DISCUSSION: Recommend to continue current medications, management and symptomatic treatment. Continue with broad-spectrum IV antibiotics. Repeat labs. Closely follow with Hematology/Oncology. The patient received platelets and blood transfusions. Prognosis guarded. Further recommendations to follow. MMODL / IJN: [id number] /
[2019-12-29] MEDS: METOPROLOL TARTRATE 12.5 MG TAB PO SCH (21:25)
[2019-12-30] MEDS ORDERED: DOCUSATE 100 MG CAP PO PRN (00:24)
[2019-12-30 05:48] LABS: Anisocytosis Slight; HCT 25.5 % (39.0-53.0); HGB 8.8 gm/dL (13.0-17.5); MCH 31.7 pg (25.0-35.0); MCHC 34.5 g/dL (31.0-37.0); MCV 91.8 fL (80.0-100.0); Mean Platelet Volume 9.1; RBC 2.78 m/uL (4.30-5.90); RDW 17.2 % (11.5-15.5)
[2019-12-30 06:17] LABS: Platelet Count 19 k/uL (150-450); WBC 0.6 k/uL (3.8-10.6)
[2019-12-30 07:55] LABS: Poikilocytosis (M) Present
[2019-12-30] MEDS: RANOLAZINE 500 MG TAB.ER.12H PO SCH (08:04)
[2019-12-30] MEDS: METOPROLOL TARTRATE 12.5 MG TAB PO SCH ×2 (08:08→20:12)
[2019-12-30] MEDS: ATORVASTATIN 40 MG TAB PO SCH (08:09)
[2019-12-30] MEDS: PANTOPRAZOLE 40 MG TABLET PO SCH (08:09)
[2019-12-30] MEDS: CYANOCOBALAMIN 500 MCG TAB PO SCH (08:09)
[2019-12-30] MEDS: CEFEPIME 2 GM in SODIUM CHLORIDE 0.9% 100 ML IVPB SCH ×2 (08:09→20:13)
[2019-12-30] MEDS: CHOLECALCIFEROL 1,000 UNIT TAB PO SCH (08:09)
[2019-12-30] MEDS: ISOSORBIDE MONONITRATE ER 60 MG TAB.ER.24H PO SCH (08:09)
[2019-12-30] MEDS: ACETAMINOPHEN TAB 325 MG TAB PO PRN ×2 (08:10→20:11)
[2019-12-30] MEDS: HYDROCORTISONE 1% CREAM 30 GM TUBE TOPICAL SCH ×2 (08:12→20:13)
[2019-12-30 09:26] LABS: African American GFR (CKD) 73.6 (60.0-200.0); Anion Gap 6.2 mmol/L (4.00-12.00); BUN/Creat Ratio 16.36 Ratio (12.00-20.00); Calcium 8.3 mg/dL (8.7-10.3); Carbon Dioxide 22.8 mmol/L (21.6-31.8); Non-African American GFR(CKD) 63.5 (60.0-200.0); Potassium 4.2 mmol/L (3.5-5.5)
--- NOTE | 2019-12-30 17:47 | PN ---
PROGRESS NOTE DATE OF SERVICE: 12/30/2019 This 79-year-old gentleman who was admitted with severe pancytopenia also had possibly neutropenic sepsis also. The patient also had infection cellulitis of the gluteal cleft also. No chest pain. No palpitations. No fever. MEDICATIONS: Tylenol Lipitor, cefepime, Colace, hydrocodone, Imdur, lisinopril, metoprolol, Protonix, PHYSICAL EXAMINATION: Alert and oriented times three. Pulse 58, blood pressure 105/40, respiration 18, temp 98.7, T-max 100.3. HEENT: Conjunctivae normal. NECK: No JVD. CARDIOVASCULAR: S1, S2 muffled. RESPIRATORY: Breath sounds diminished in the bases. No rhonchi. No crackles. ABDOMEN: Soft, nontender. LEGS no edema. No swelling. NERVOUS SYSTEM: No focal deficits. LABS: WBC 0.2, hemoglobin is 8.8. ASSESSMENT: 1. 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 2. Possible neutropenic sepsis. 3. Cellulitis of the gluteal region. 4. Relative hypotension. 5. Acute renal failure with acute tubular necrosis with prerenal acute renal failure. 6. Possible chronic kidney disease stage 3 baseline. 7. Hyponatremia. 8. History of coronary artery disease. 9. History of gastroesophageal reflux disease. 10.Hypertension. 11.Hyperlipidemia. 12.History of prostate cancer. 13.History of cardiac catheterization. 14.History of hernia repair. RECOMMENDATIONS AND DISCUSSION: Recommend to continue current medications, continue with monitoring, symptomatic treatment. Otherwise, at this time, continue the antibiotics. Follow the cultures. Otherwise, I would also recommend infectious disease evaluation. Repeat labs. Guarded prognosis because of multiple complex medical issues. Further recommendations to follow. MMODL / IJN: [id number] / MTDD
--- NOTE | 2019-12-30 18:58 | P.CONS ---
History of Present Illness - Reason for Consult Consult date: 12/30/19 Pancytopenia Requesting physician: Aj Pan - Chief Complaint weakness and low counts - History of Present Illness Mister Vivas is a pleasant white male with overall well-controlled medical problems. The patient was referred here because of pancytopenia. In 09/15 his hemoglobin is 10.1, white count 2.2 and platelets 83. Chem panel showed: 147 but was otherwise normal. In 12/16 ferritin was 372 with other iron indices normal. PSA was undetectable. B12 is 679. CBC in 02/15 again showed hemoglobin of 9.4, white count 2.3 and platelets 59. Peripheral smear in 12/16 had shown evidence of thrombo-cytopenia and leukopenia, with rare plasmacytoid-appearing lymphocytes but no other major abnormality. The patient denied any history of heavy alcohol use, chronic ongoing inflammation, or new medication at least in the last 1 year. He had had a CT of the abdomen and pelvis in 12/16, and had shown scattered nodular densities in both bases with metastatic disease not ruled out. Study was done for abdominal pain due to constipation. Follow-up CT chest on 01/21/19 showed calcified granuloma left midlung, and improving pneumonitis-type changes in bilateral lung bases. The patient had pancytopenia workup done which was negative, including ultrasound of the abdomen. Labs did show moderately elevated sedimentation rate at 57. The patient was recommended a bone marrow aspiration biopsy. He refused it at the time of stated that he would get back to us after discussing with his daughter, but did not do so. He was then seen in consult at [facility] in early 06/16. He had developed progressive cytopenias with associated weakness, leading to his admission. He was transfused, and had a bone marrow on 06/03/19 and then discharg ed. 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 Incidentally a small monoclonal B cell population was also noted. NGS did not reveal any specific targets. The patient was therefore started on treatment with Venetoclax and Vidaza, on 06/30/19 and is status post 4cycles. He had follow-up bone marrow aspiration and biopsy after cycle 1 on 07/25/19. This was evaluated additionally at the [facility] for second opinion and it was ultimately felt that there was a partial response with blasts percentage decreased to around 17-18% 4/20/20-Still inpatient for BRBPR, hemorrhoids, abd discomfort. He was able to get his venetoclax so he could take while inpatient, he is due for 21 day BM Bx tomorrow at [facility]. He was seen via stas ramirez, but was seen inpatient. Telemedicine Audio Visual 08/11/19: as above. The patient was also admitted after cycle 1 for bleeding per rectum, likely hemorrhoidal. He has been having issues with constipation which were quite significant initially, but are much better controlled with ongoing bowel regimen utilizing stool softener and MiraLAX. He denied any fevers/chills/nausea/vomiting/abnormal bruising. he denied any recurrence of bleeding per rectum. Appetite is maintained. Joint issues and dyspnea on exertion are stable. he has stable fatigue. Review of systems otherwise as per HPI and negative out of 10 as above. The patient's initial bone marrow had shown partial response as noted above due to his treatment was continued. repeat bone marrow on 09/12/19 showed no evidence of AML Vidaza was thus resumed. He is now s/p 6 cycles he is complaining of significant fatigue. he is also complaining of perirectal pain which seems to be worse with defecation. He denies any constipation. He denied any fevers/chills/nausea/vomiting. Bowel movements are overall regular, though they are intermittently loose. Appetite is maintained. He feels his dyspnea on exertion is somewhat worse. Joint issues are stable. Review of systems otherwise as per HPI and negative out of 10 Last seen 12/27: the patient was complaining of some increased fatigue and shortness of breath on exertion. CBC shows marked drop in counts with hemoglobin 5.3, WBC 0.7, and platelets 9.3 - The patient will be sent to the emergency room at [facility] to receive blood and platelet transfusion. Case was discussed with the ER physician. They will also evaluate his perirectal pain which by history appears to be likely related to a hemorrhoid. - At this time, given his profound cytopenias posttreatment, treatment will be held. He was asked to stop taking his Venclexta. After discharge from the hospital. He will be followed with supportive transfusions during his counts recover. After recovery of counts, we will likely place him on a low density regimen for maintenance, such as oral Aza-C, or continue his current regimen with significant dose reduction. Review of Systems All systems: negative Constitutional: Reports as per HPI Past Medical History Past Medical History: Coronary Artery Disease (CAD), Cancer, GERD/Reflux, Hyperlipidemia, Hypertension, Prostate Disorder Additional Past Medical History / Comment(s): prostate ca 2012(sx only). psoriases on scalp, Leukemia APR 2019, last chemo 12/20/19 History of Any Multi-Drug Resistant Organisms: None Reported Past Surgical History: Heart Catheterization, Hernia Repair, Prostate Surgery, Tonsillectomy Past Anesthesia/Blood Transfusion Reactions: No Reported Reaction Past Psychological History: No Psychological Hx Reported Smoking Status: Never smoker Past Alcohol Use History: Occasional Past Drug Use History: None Reported - Past Family History Mother Family Medical History: No Reported History Additional Family Medical History / Comment(s): age 96 Father Additional Family Medical History / Comment(s): at age 59 had all teeth pulled and 3 days later ?blood clot/mi pt not sure Medications and Allergies Home Medications Medication Instructions Recorded Confirmed Type Atorvastatin [Lipitor] 40 mg PO DAILY 01/13/18 12/28/19 History Nitroglycerin Sl Tabs [Nitrostat] 0.4 mg SL Q5M PRN 01/13/18 12/28/19 History Cholecalciferol [Vitamin D3 (25 1,000 unit PO DAILY 06/13/19 12/28/19 History Mcg = 1000 Iu)] Cyanocobalamin (Vitamin B-12) 1,000 mcg PO DAILY 06/13/19 12/28/19 History [Vitamin B-12] Ranolazine [Ranolazine ER] 500 mg PO BID 06/13/19 12/28/19 History Ubidecarenone [Co Q-10] 100 mg PO DAILY 06/13/19 12/28/19 History Polyethylene Glycol 3350 [Miralax] 17 gm PO DAILY #527 gm 07/13/19 12/28/19 Rx Sennosides-Docusate Sodium 1 tab PO BID 07/17/19 12/28/19 History [Senokot-S] Isosorbide Mononitrate ER [Imdur] 60 mg PO DAILY #30 tab.er.24h 07/18/19 12/28/19 Rx Metoprolol Tartrate [Lopressor] 25 mg PO BID #60 tab 07/18/19 12/28/19 Rx Omeprazole [PriLOSEC] 40 mg PO DAILY #30 cap 07/18/19 12/28/19 Rx lisinopriL [Zestril] 2.5 mg PO DAILY 12/21/19 12/28/19 History Hydrocortisone Cream 1 applic RECTAL BID 12/28/19 12/28/19 History [Hydrocortisone 2.5% Cream] Allergies Allergy/AdvReac Type Severity Reaction Status Date / Time No Known Allergies Allergy Verified 12/28/19 21:58 Physical Exam Vitals: Vital Signs Temp Pulse Pulse Resp BP Pulse Ox 12/30/19 11:25 98.7 F 58 L 18 105/46 98 12/30/19 05:00 99.2 F 64 18 112/54 96 12/30/19 00:00 18 12/29/19 20:00 100.3 F H 72 18 109/55 93 L Intake and Output 12/29/19 12/30/19 12/30/19 22:59 06:59 14:59 Intake Total 500 Balance 500 Intake: Oral 500 Other: Voiding Method Toilet Urinal # Voids 1 3 - Constitutional General appearance: cooperative, no acute distress - EENT Eyes: EOMI, PERRLA ENT: hard of hearing, NA/AT, normal oropharynx - Neck Neck: normal ROM - Respiratory Respiratory: bilateral: CTA - Cardiovascular Rhythm: regular Heart sounds: normal: S1, S2 - Gastrointestinal General gastrointestinal: normal bowel sounds, soft - Integumentary Integumentary: pale - Neurologic Neurologic: CNII-XII intact - Musculoskeletal Musculoskeletal: generalized weakness, strength equal bilaterally - Psychiatric Psychiatric: A&O x's 3, appropriate affect, intact judgment & insight Results CBC & Chem 7: 12/30/19 05:14 12/30/19 05:14 Labs: Abnormal Lab Results - Last 24 Hours (Table) 12/30/19 12/30/19 Range/Units 05:14 05:14 WBC 0.6 L* (3.8-10.6) k/uL RBC 2.78 L (4.30-5.90) m/uL Hgb 8.8 L (13.0-17.5) gm/dL Hct 25.5 L (39.0-53.0) % RDW 17.2 H (11.5-15.5) % Plt Count 19 L* D (150-450) k/uL Chloride 110 H (96-109) mmol/L Calcium 8.3 L (8.7-10.3) mg/dL Microbiology - Last 24 Hours (Table) 12/28/19 23:59 Blood Culture - Preliminary Blood No Growth after 24 hours 12/29/19 09:25 Stool Culture - Preliminary Stool 12/29/19 13:35 Urine Culture - Preliminary Urine,Voided Assessment and Plan (1) Aplastic anemia Current Visit: Yes Status: Acute Code(s): D61.9 - APLASTIC ANEMIA, UNSPECIFIED SNOMED Code(s): 705604435 (2) Pancytopenia Current Visit: Yes Status: Chronic Priority: Medium Code(s): D61.818 - OTHER PANCYTOPENIA SNOMED Code(s): 732173460 (3) Acute myeloid leukemia Current Visit: No Status: Acute Priority: High Code(s): C92.00 - ACUTE MYELOBLASTIC LEUKEMIA, NOT HAVING ACHIEVED REMISSION SNOMED Code(s): 46551852 Plan: His bloodcounts are improved. Platelets are greater than 10K and no bleeding, no fevers and hemoglobin greater than 8. He is to have CBC with diff and supportive transfusions thursday and next week, he is aware Physcian attest: I have completed the full history and physical and agree with above dictation, dictated as a scribe.
[2019-12-31] MEDS: HYDROcodone/APAP 5-325MG 1 EACH TAB PO PRN ×2 (02:52→09:33)
[2019-12-31 04:43] VITALS: BP 136/63; PULSE 62; RESP 16; TEMP 98.3
[2019-12-31 06:51] LABS: Anisocytosis Slight; HCT 25.8 % (39.0-53.0); HGB 8.9 gm/dL (13.0-17.5); MCH 32.1 pg (25.0-35.0); MCHC 34.6 g/dL (31.0-37.0); MCV 92.6 fL (80.0-100.0); Mean Platelet Volume 10.6; RBC 2.78 m/uL (4.30-5.90); RDW 17.3 % (11.5-15.5)
[2019-12-31 07:00] LABS: Platelet Count 17 k/uL (150-450)
[2019-12-31 07:01] LABS: WBC 0.6 k/uL (3.8-10.6)
[2019-12-31] MEDS ORDERED: CEFEPIME 2 GM in SODIUM CHLORIDE 0.9% 100 ML IVPB SCH (08:00)
[2019-12-31 09:05] LABS: African American GFR (CKD) 82.6 (60.0-200.0); Anion Gap 5.9 mmol/L (4.00-12.00); C Reactive Protein 6.7 mg/dL (0.0-0.8); Calcium 8.5 mg/dL (8.7-10.3); Carbon Dioxide 24.1 mmol/L (21.6-31.8); Non-African American GFR(CKD) 71.3 (60.0-200.0); Potassium 4.4 mmol/L (3.5-5.5)
[2019-12-31] MEDS: ISOSORBIDE MONONITRATE ER 60 MG TAB.ER.24H PO SCH (09:15)
[2019-12-31] MEDS: METOPROLOL TARTRATE 12.5 MG TAB PO SCH (09:15)
[2019-12-31] MEDS: CHOLECALCIFEROL 1,000 UNIT TAB PO SCH (09:15)
[2019-12-31] MEDS: ATORVASTATIN 40 MG TAB PO SCH (09:16)
[2019-12-31] MEDS: CYANOCOBALAMIN 500 MCG TAB PO SCH (09:16)
[2019-12-31] MEDS: PANTOPRAZOLE 40 MG TABLET PO SCH (09:16)
[2019-12-31] MEDS: BENZOCAINE/MENTHOL LOZENG 1 EACH LOZENGE MUCOUS MEM PRN (09:34)
[2019-12-31] MEDS: HYDROCORTISONE 1% CREAM 30 GM TUBE TOPICAL SCH (10:20)
[2019-12-31] MEDS ORDERED: HYDROCORTISONE SUPPOSITORY 25 MG SUPP RECTAL SCH (10:30)
--- NOTE | 2019-12-31 18:12 | DS ---
DISCHARGE SUMMARY DATE OF SERVICE: 12/31/2019 FINAL DIAGNOSES: 1. 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 2. Possible neutropenic sepsis, present on admission. 3. Cellulitis of the gluteal region. 4. External hemorrhoids. 5. Relative hypotension. 6. Acute renal failure with acute tubular necrosis with prerenal acute renal failure. 7. Possible chronic kidney stage 3 baseline. 8. Hyponatremia. 9. History of coronary artery disease. 10.History of hypertension. 11.Hyperlipidemia. 12.History of prostate cancer. 13.History of cardiac catheterization. 14.History of hernia repair. DISCHARGE DISPOSITION: The patient being discharged in stable condition. Guarded prognosis. HISTORY OF PRESENT ILLNESS: This 79-year-old gentleman with a past medical history of multiple medical problems admitted with pancytopenia, severe pancytopenia as well as neutropenic sepsis. The patient given transfusion and platelet transfusion, blood transfusion. Patient improved significantly. On exam, vitals are stable. Cardiovascular S1, S2. Abdomen soft. Nervous system: No focal deficits. The patient has minimal cellulitis in the gluteal region as well as some external hemorrhoids symptomatically treated. Currently white count 0.6, hemoglobin 8.9, platelets 117. The patient being discharged in stable condition with guarded prognosis with further plans to follow up with hematology and oncology in the outpatient setting. DISCHARGE INSTRUCTIONS: 1. Discharge diet is cardiac diet. 2. Follow up with Dr. Calabrese in 1-2 days. 3. Follow up with Dr. Tam and Dr. Bagley as recommended. DISCHARGE MEDICATIONS: 1. Coenzyme Q 100 mg p.o. daily. 2. Hydrocortisone cream locally daily. 3. Lipitor 40 mg daily. 4. Nitrostat 0.4 daily. 5. Ranolazine 500 mg p.o. b.i.d. 6. Senna 1 tab b.i.d. 7. Vitamin B2 1000 mg daily. 8. Vitamin D3 daily. 9. Zestril 2.5 mg daily. 10.Anusol HC daily. 11.Augmentin 1 p.o. b.i.d. for 3 days. 12.Colace 100 mg p.o. b.i.d., hold if the patient has diarrhea. 13.Imdur ER 60 mg daily. 14.Lopressor 25 mg p.o. b.i.d. 15.MiraLAX 17 g daily p.r.n. 16.Prilosec 40 mg daily. 17.Tylenol p.r.n. Once again, the patient will be discharged in a stable condition with guarded prognosis. MMODL / IJN: [id number] /
[2019-12-31] MEDS ORDERED: DOCUSATE 100 MG CAP PO SCH (21:00)
== END 2019-12-31 14:06 | disposition home or self-care (01) | DRG 808 ==
LOC: EC 18:00 → 6NMEDSUR 19:32
PROVIDERS: ADMIT Family Medicine; ATTEND Family Medicine
PROC: 30243R1 Transfusion of Nonautologous Platelets into Central Vein, Percutaneous Approach (ICD-10-PCS; principal; 2019-12-29)
PROC: 30243N1 Transfusion of Nonautologous Red Blood Cells into Central Vein, Percutaneous Approach (ICD-10-PCS; 2019-12-29)
DX: D61.89 Other specified aplastic anemias and other bone marrow failure syndromes (principal); N17.0 Acute kidney failure with tubular necrosis; C92.00 Acute myeloblastic leukemia, not having achieved remission; E87.1 Hypo-osmolality and hyponatremia; L03.317 Cellulitis of buttock; D70.3 Neutropenia due to infection; I95.9 Hypotension, unspecified; N18.30 Chronic kidney disease, stage 3 unspecified; J84.10 Pulmonary fibrosis, unspecified; I25.10 Atherosclerotic heart disease of native coronary artery without angina pectoris; K21.9 Gastro-esophageal reflux disease without esophagitis; E78.5 Hyperlipidemia, unspecified; K59.00 Constipation, unspecified; K64.4 Residual hemorrhoidal skin tags; I12.9 Hypertensive chronic kidney disease with stage 1 through stage 4 chronic kidney disease, or unspecified chronic kidney disease; Z98.890 Other specified postprocedural states; Z79.899 Other long term (current) drug therapy; Z85.46 Personal history of malignant neoplasm of prostate; Z95.828 Presence of other vascular implants and grafts; Z82.49 Family history of ischemic heart disease and other diseases of the circulatory system
CPT/HCPCS: 36415; 71045; 80048; 80053; 81003; 82272; 82550; 83690; 83735; 84145; 84484; 85025; 85610; 85730; 86140; 86850; 86900; 86901; 86920; 87040; 87045; 87046; 87086; 96360; 96361; 99285

== ENCOUNTER 2020-06-30 15:36 | Emergency (ER) | payer MEDICARE ==
--- NOTE | 2020-06-30 16:39 | ED ---
Weakness HPI - General Chief complaint: Weakness Stated complaint: Weakness Time Seen by Provider: 06/30/20 16:19 Source: patient, RN notes reviewed Mode of arrival: ambulatory Limitations: no limitations - History of Present Illness Initial comments: 80-year-old white male patient, presents to the emergency from home. Patient in NAD, joking with staff. States that he has been feeling weak and tired for the past 3 days. States had fever 2 days ago of 101, yesterday had a cough and sore throat all resolved today. Patient states received his first vaccine for covid 8 days ago and has a second dose scheduled. Patient was diagnosed with leukemia in the past and has been 2 months in remission. Patient concerned that his leukemia may be back because he's been feeling tired which is why he came to the ER to determine if it was leukemia or viral. Patient denies chest pain, denies nausea vomiting or diarrhea. States had chocolate cake for breakfast today. MD Complaint: generalized weakness -: days(s) (3) Location: generalized Severity scale (1-10): 0 Consistency: constant Improves with: rest Worsens with: exertion Context: other (first covid vaccine given 8 days ago, scheduled for second) Associated Symptoms: denies other symptoms (did have fever 2 days ago 101., sore throat yesterday, all resolved today except weakness) - Related Data Home Medications Medication Instructions Recorded Confirmed Atorvastatin [Lipitor] 40 mg PO DAILY 01/13/18 12/28/19 Nitroglycerin Sl Tabs [Nitrostat] 0.4 mg SL Q5M PRN 01/13/18 12/28/19 Cholecalciferol [Vitamin D3 (25 1,000 unit PO DAILY 06/13/19 12/28/19 Mcg = 1000 Iu)] Cyanocobalamin (Vitamin B-12) 1,000 mcg PO DAILY 06/13/19 12/28/19 [Vitamin B-12] Ranolazine [Ranolazine ER] 500 mg PO BID 06/13/19 12/28/19 Ubidecarenone [Co Q-10] 100 mg PO DAILY 06/13/19 12/28/19 Sennosides-Docusate Sodium 1 tab PO BID 07/17/19 12/28/19 [Senokot-S] lisinopriL [Zestril] 2.5 mg PO DAILY 12/21/19 12/28/19 Hydrocortisone Cream 1 applic RECTAL BID 12/28/19 12/28/19 [Hydrocortisone 2.5% Cream] Previous Rx's Medication Instructions Recorded Polyethylene Glycol 3350 [Miralax] 17 gm PO DAILY #527 gm 07/13/19 Isosorbide Mononitrate ER [Imdur] 60 mg PO DAILY #30 tab.er.24h 07/18/19 Metoprolol Tartrate [Lopressor] 25 mg PO BID #60 tab 07/18/19 Omeprazole [PriLOSEC] 40 mg PO DAILY #30 cap 07/18/19 Acetaminophen Tab [Tylenol] 650 mg PO Q6HR PRN tab 12/31/19 Amoxicillin/Potassium Clav 1 tab PO Q12HR 3 Days #6 tab 12/31/19 [Augmentin 875-125 Tablet] Docusate [Colace] 100 mg PO BID #60 cap 12/31/19 Hydrocortisone [Anusol-Hc] 1 applic RECTAL ACHS #1 gm 12/31/19 Allergies Allergy/AdvReac Type Severity Reaction Status Date / Time No Known Allergies Allergy Verified 06/30/20 15:50 Review of Systems ROS Statement: Those systems with pertinent positive or pertinent negative responses have been documented in the HPI. ROS Other: All systems not noted in ROS Statement are negative. Past Medical History Past Medical History: Coronary Artery Disease (CAD), Cancer, GERD/Reflux, Hyperlipidemia, Hypertension, Prostate Disorder Additional Past Medical History / Comment(s): prostate ca 2012(sx only). psoriases on scalp, Leukemia APR 2019, last chemo 12/20/19 History of Any Multi-Drug Resistant Organisms: None Reported Past Surgical History: Heart Catheterization, Hernia Repair, Prostate Surgery, Tonsillectomy Past Anesthesia/Blood Transfusion Reactions: No Reported Reaction Past Psychological History: No Psychological Hx Reported Smoking Status: Never smoker Past Alcohol Use History: Occasional Past Drug Use History: None Reported - Past Family History Mother Family Medical History: No Reported History Additional Family Medical History / Comment(s): age 96 Father Additional Family Medical History / Comment(s): at age 59 had all teeth pulled and 3 days later ?blood clot/mi pt not sure General Exam Limitations: no limitations General appearance: alert, in no apparent distress Head exam: Present: atraumatic, normocephalic, normal inspection Eye exam: Present: normal appearance, PERRL, EOMI. Absent: scleral icterus, conjunctival injection, periorbital swelling ENT exam: Present: normal exam, mucous membranes moist Neck exam: Present: normal inspection, full ROM. Absent: tenderness, meningismus, lymphadenopathy, thyromegaly Respiratory exam: Present: rales (b/l bases). Absent: respiratory distress, wheezes, chest wall tenderness, accessory muscle use, decreased breath sounds Cardiovascular Exam: Present: normal rhythm, bradycardia, normal heart sounds. Absent: systolic murmur, diastolic murmur, rubs, gallop, clicks, JVD GI/Abdominal exam: Present: soft, normal bowel sounds. Absent: distended, tenderness, guarding, rebound, rigid Back exam: Absent: tenderness, CVA tenderness (R), CVA tenderness (L) Neurological exam: Present: alert, oriented X3, CN II-XII intact Psychiatric exam: Present: normal affect, normal mood Skin exam: Present: warm, dry, intact, normal color. Absent: rash, cyanosis, diaphoretic Course Vital Signs 06/30/20 06/30/20 15:47 19:01 Temperature 99 F 99.3 F Pulse Rate 58 L 69 Respiratory 20 18 Rate Blood Pressure 125/53 137/69 O2 Sat by Pulse 99 98 Oximetry Medical Decision Making - Medical Decision Making Patient covid + and is agreeable to getting the monoclonal antibodies infusion. Oxygen sat 99% on room air heart rate of 58 no other symptoms. WBC count 3.3, d-dimer 0.33, chest x-ray shows lungs clear and heart size normal. Creatinine is 1.27 with his last creatinine in December 2019 being 1.0. patient will be directed to follow up with his primary care doctor within week 1 week and return to the emergency room for worsening shortness of breath.. - Lab Data Result diagrams: 06/30/20 16:41 06/30/20 16:41 Lab Results 06/30/20 06/30/20 06/30/20 Range/Units 16:41 16:41 16:41 WBC 3.3 L (3.8-10.6) k/uL RBC 3.37 L (4.30-5.90) m/uL Hgb 12.0 L (13.0-17.5) gm/dL Hct 34.8 L (39.0-53.0) % MCV 103.2 H (80.0-100.0) fL MCH 35.8 H (25.0-35.0) pg MCHC 34.7 (31.0-37.0) g/dL RDW 14.7 (11.5-15.5) % Plt Count 72 L (150-450) k/uL MPV 8.3 Neutrophils % 45 % Lymphocytes % 41 % Monocytes % 10 % Eosinophils % 1 % Basophils % 0 % Neutrophils # 1.5 (1.3-7.7) k/uL Lymphocytes # 1.4 (1.0-4.8) k/uL Monocytes # 0.3 (0-1.0) k/uL Eosinophils # 0.0 (0-0.7) k/uL Basophils # 0.0 (0-0.2) k/uL Macrocytosis Slight PT 10.5 (9.0-12.0) sec INR 1.0 (<1.2) APTT 27.7 (22.0-30.0) sec D-Dimer 0.33 (<0.60) mg/L FEU Sodium (137-145) mmol/L Potassium (3.5-5.1) mmol/L Chloride (98-107) mmol/L Carbon Dioxide (22-30) mmol/L Anion Gap mmol/L BUN (9-20) mg/dL Creatinine (0.66-1.25) mg/dL Est GFR (CKD-EPI)AfAm (>60 ml/min/1.73 sqM) Est GFR (CKD-EPI)NonAf (>60 ml/min/1.73 sqM) Glucose (74-99) mg/dL Plasma Lactic Acid Otoniel (0.7-2.0) mmol/L Calcium (8.4-10.2) mg/dL Magnesium (1.6-2.3) mg/dL Total Bilirubin (0.2-1.3) mg/dL AST (17-59) U/L ALT (4-49) U/L Alkaline Phosphatase (38-126) U/L Troponin I (0.000-0.034) ng/mL Total Protein (6.3-8.2) g/dL Albumin (3.5-5.0) g/dL Coronavirus (PCR) Detected A (Not Detectd) 06/30/20 06/30/20 06/30/20 Range/Units 16:41 16:41 16:41 WBC (3.8-10.6) k/uL RBC (4.30-5.90) m/uL Hgb (13.0-17.5) gm/dL Hct (39.0-53.0) % MCV (80.0-100.0) fL MCH (25.0-35.0) pg MCHC (31.0-37.0) g/dL RDW (11.5-15.5) % Plt Count (150-450) k/uL MPV Neutrophils % % Lymphocytes % % Monocytes % % Eosinophils % % Basophils % % Neutrophils # (1.3-7.7) k/uL Lymphocytes # (1.0-4.8) k/uL Monocytes # (0-1.0) k/uL Eosinophils # (0-0.7) k/uL Basophils # (0-0.2) k/uL Macrocytosis PT (9.0-12.0) sec INR (<1.2) APTT (22.0-30.0) sec D-Dimer (<0.60) mg/L FEU Sodium 138 (137-145) mmol/L Potassium 3.9 (3.5-5.1) mmol/L Chloride 101 (98-107) mmol/L Carbon Dioxide 28 (22-30) mmol/L Anion Gap 9 mmol/L BUN 16 (9-20) mg/dL Creatinine 1.27 H (0.66-1.25) mg/dL Est GFR (CKD-EPI)AfAm 61 (>60 ml/min/1.73 sqM) Est GFR (CKD-EPI)NonAf 53 (>60 ml/min/1.73 sqM) Glucose 94 (74-99) mg/dL Plasma Lactic Acid Otoniel 1.0 (0.7-2.0) mmol/L Calcium 8.9 (8.4-10.2) mg/dL Magnesium 2.0 (1.6-2.3) mg/dL Total Bilirubin 0.6 (0.2-1.3) mg/dL AST 45 (17-59) U/L ALT 38 (4-49) U/L Alkaline Phosphatase 87 (38-126) U/L Troponin I 0.024 (0.000-0.034) ng/mL Total Protein 6.8 (6.3-8.2) g/dL Albumin 4.2 (3.5-5.0) g/dL Coronavirus (PCR) (Not Detectd) - EKG Data EKG shows normal: sinus rhythm, intervals (Ventricular rate of 58, [place] interval 0.17, QRS of 0.90, QTc of .439) Rate: bradycardia Disposition Clinical Impression: COVID-19 Disposition: HOME SELF-CARE Condition: Good Additional Instructions: Return to the emergency room for worsening shortness of breath and follow-up with the primary care doctor this week. Is patient prescribed a controlled substance at d/c from ED?: No Referrals: Deidre Calabrese MD [Primary Care Provider] - 1-2 days Time of Disposition: 19:46
[2020-06-30 17:01] LABS: Basophils % (A) 0 %; Eosinophils % (A) 1 %; HCT 34.8 % (39.0-53.0); Lymphocytes # (A) 1.4 k/uL (1.0-4.8); Lymphocytes % (A) 41 %; MCH 35.8 pg (25.0-35.0); MCHC 34.7 g/dL (31.0-37.0); MCV 103.2 fL (80.0-100.0); Macrocytosis Slight; Mean Platelet Volume 8.3; Monocytes # (A) 0.3 k/uL (0-1.0); Monocytes % (A) 10 %; Neutrophils # (A) 1.5 k/uL (1.3-7.7); Neutrophils % (A) 45 %; RBC 3.37 m/uL (4.30-5.90); RDW 14.7 % (11.5-15.5); WBC 3.3 k/uL (3.8-10.6)
[2020-06-30 17:04] LABS: Albumin 4.2 g/dL (3.5-5.0); Calcium 8.9 mg/dL (8.4-10.2); Potassium 3.9 mmol/L (3.5-5.1); Total Bilirubin 0.6 mg/dL (0.2-1.3); Total Protein 6.8 g/dL (6.3-8.2)
[2020-06-30 17:09] LABS: D-Dimer 0.33 mg/L FEU (<0.60); Partial Thromboplastin Time 27.7 sec (22.0-30.0); Prothrombin Time 10.5 sec (9.0-12.0)
--- NOTE | 2020-06-30 17:11 | XR ---
EXAMINATION TYPE: XR chest 2V DATE OF EXAM: 06/30/2020 COMPARISON: 12/29/2019 HISTORY: Weakness TECHNIQUE: 2 views FINDINGS: Heart and mediastinum are normal. Lungs are clear. Diaphragm is normal. There are chest lucia ds. Bony thorax is intact. IMPRESSION: No active cardiopulmonary disease. Normal heart. No change.
[2020-06-30 17:12] LABS: Platelet Count 72 k/uL (150-450)
[2020-06-30] MEDS ORDERED: BAMLANIVIMAB (EUA) 700 MG, ETESEVIMAB (EUA) 1,400 MG in SODIUM CHLORIDE 0.9% 50 ML IVPB ONE (18:30)
[2020-06-30 19:02] VITALS: BP 137/69; PULSE 69; RESP 18; TEMP 99.3
== END 2020-06-30 19:57 | disposition home or self-care (01) ==
LOC: EC 15:36
DX: U07.1 COVID-19 (principal); I25.10 Atherosclerotic heart disease of native coronary artery without angina pectoris; K21.9 Gastro-esophageal reflux disease without esophagitis; E78.5 Hyperlipidemia, unspecified; I10 Essential (primary) hypertension; Z85.46 Personal history of malignant neoplasm of prostate; Z79.899 Other long term (current) drug therapy
CPT/HCPCS: 93005; 85379; 80053; 83605; 83735; 84484; 85025; 85610; 85730; 87635; 71046; 99285; 96365; Q0245

== ENCOUNTER 2021-04-06 23:01 | Inpatient (IN) | payer MEDICARE ==
--- NOTE | 2021-04-06 23:20 | ED ---
Chest Pain HPI - General Chief Complaint: Chest Pain Stated Complaint: Chest Pain Time Seen by Provider: 04/06/21 23:19 Source: patient, EMS, RN notes reviewed, old records reviewed Limitations: no limitations - History of Present Illness Initial Comments: This is an 80-year-old male DF for evaluation presents today for evaluation regards to chest pain 3 days of chest pain episodic getting worse with some increasing shortness of breath. No diaphoresis but he does have history of heart disease no prior stent placement. Patient has had coronavirus in the past but currently presents with fever mild nausea no vomiting and no current shortness of breath. Chest pain is improved with nitro per EMS. No other complaints MD Complaint: chest pain -: days(s) (3) Onset: during rest, during exertion Pain Location: substernal, left chest Pain Radiation: none Severity: moderate Severity scale (1-10): 4 Quality: tightness, heaviness Consistency: intermittent Improves With: nitroglycerin Worsens With: nothing Context: recent illness (Patient found to have fever here in the ER) Anginal Symptoms: dyspnea Treatments Prior to Arrival: aspirin, nitroglycerin - Related Data Home Medications Medication Instructions Recorded Confirmed Atorvastatin [Lipitor] 40 mg PO DAILY 01/13/18 12/28/19 Nitroglycerin Sl Tabs [Nitrostat] 0.4 mg SL Q5M PRN 01/13/18 12/28/19 Cholecalciferol [Vitamin D3 (25 1,000 unit PO DAILY 06/13/19 12/28/19 Mcg = 1000 Iu)] Cyanocobalamin (Vitamin B-12) 1,000 mcg PO DAILY 06/13/19 12/28/19 [Vitamin B-12] Ranolazine [Ranolazine ER] 500 mg PO BID 06/13/19 12/28/19 Ubidecarenone [Co Q-10] 100 mg PO DAILY 06/13/19 12/28/19 Sennosides-Docusate Sodium 1 tab PO BID 07/17/19 12/28/19 [Senokot-S] lisinopriL [Zestril] 2.5 mg PO DAILY 12/21/19 12/28/19 Hydrocortisone Cream 1 applic RECTAL BID 12/28/19 12/28/19 [Hydrocortisone 2.5% Cream] Previous Rx's Medication Instructions Recorded Polyethylene Glycol 3350 [Miralax] 17 gm PO DAILY #527 gm 07/13/19 Isosorbide Mononitrate ER [Imdur] 60 mg PO DAILY #30 tab.er.24h 07/18/19 Metoprolol Tartrate [Lopressor] 25 mg PO BID #60 tab 07/18/19 Omeprazole [PriLOSEC] 40 mg PO DAILY #30 cap 07/18/19 Acetaminophen Tab [Tylenol] 650 mg PO Q6HR PRN tab 12/31/19 Amoxicillin/Potassium Clav 1 tab PO Q12HR 3 Days #6 tab 12/31/19 [Augmentin 875-125 Tablet] Docusate [Colace] 100 mg PO BID #60 cap 12/31/19 Hydrocortisone [Anusol-Hc] 1 applic RECTAL ACHS #1 gm 12/31/19 Allergies Allergy/AdvReac Type Severity Reaction Status Date / Time No Known Allergies Allergy Verified 06/30/20 15:50 Review of Systems ROS Statement: Those systems with pertinent positive or pertinent negative responses have been documented in the HPI. ROS Other: All systems not noted in ROS Statement are negative. EKG Findings - EKG Comments: EKG Findings:: EKG is sinus rhythm 93 FL 184 QRS 94 QTC 457 Past Medical History Past Medical History: Coronary Artery Disease (CAD), Cancer, GERD/Reflux, Hyperlipidemia, Hypertension, Prostate Disorder Additional Past Medical History / Comment(s): prostate ca 2012(sx only). psoriases on scalp, Leukemia APR 2019, last chemo 12/20/19 History of Any Multi-Drug Resistant Organisms: None Reported Past Surgical History: Heart Catheterization, Hernia Repair, Prostate Surgery, Tonsillectomy Past Anesthesia/Blood Transfusion Reactions: No Reported Reaction Past Psychological History: No Psychological Hx Reported Smoking Status: Never smoker Past Alcohol Use History: Occasional Past Drug Use History: None Reported - Past Family History Mother Family Medical History: No Reported History Additional Family Medical History / Comment(s): age 96 Father Additional Family Medical History / Comment(s): at age 59 had all teeth pulled and 3 days later ?blood clot/mi pt not sure General Exam General appearance: alert, in no apparent distress, anxious Head exam: Present: atraumatic, normocephalic, normal inspection Eye exam: Present: normal appearance, PERRL, EOMI. Absent: scleral icterus, conjunctival injection, periorbital swelling ENT exam: Present: normal exam, mucous membranes moist Neck exam: Present: normal inspection. Absent: tenderness, meningismus, lymphadenopathy Respiratory exam: Present: normal lung sounds bilaterally. Absent: respiratory distress, wheezes, rales, rhonchi, stridor Cardiovascular Exam: Present: regular rate, normal rhythm, normal heart sounds. Absent: systolic murmur, diastolic murmur, rubs, gallop, clicks GI/Abdominal exam: Present: soft, normal bowel sounds. Absent: distended, tenderness, guarding, rebound, rigid Extremities exam: Present: normal inspection, full ROM, normal capillary refill. Absent: tenderness, pedal edema, joint swelling, calf tenderness Back exam: Present: normal inspection Neurological exam: Present: alert, oriented X3, CN II-XII intact Psychiatric exam: Present: normal affect, normal mood Skin exam: Present: warm, dry, intact, normal color. Absent: rash Course Vital Signs 04/06/21 04/07/21 23:04 01:24 Temperature 100.7 F H Pulse Rate 91 82 Respiratory 20 18 Rate Blood Pressure 103/82 119/57 O2 Sat by Pulse 100 92 L Oximetry - Reevaluation(s) Reevaluation #1: 04/07/21 01:39 Medical record is reviewed Reevaluation #2: 04/07/21 01:39 This chest pain did improve with nitro here in the ER Reevaluation #3: 04/07/21 01:39 Is informed of results and questions answered - Consultations Consultation #1: Spoke with cardiology regarding EKG, will evaluate patient in the morning as he is now pain-free Consultation #2: Spoke with oncology regarding transfusion they agreed Consultation #3: Spoke with sound physicians we'll admit this patient Chest Pain MDM - MDM 80 male DF for evaluation of chest pain today. Severe increasing chest pain. Patient is fever positive coronavirus positive with pneumonia. Significant anemia needing transfusion. Patient does have significant EKG changes [place] for cardiac evaluation monitoring Critical Care Time Critical Care Time: Yes Total Critical Care Time: 31 Disposition Clinical Impression: Chest pain, Pancytopenia, Acute myeloid leukemia, ACS (acute coronary syndrome), Community acquired pneumonia, COVID-19, Coronavirus infection, Fever Disposition: ADMITTED IP TO THIS HOSP Condition: Serious Is patient prescribed a controlled substance at d/c from ED?: No Referrals: Deidre Calabrese MD [Primary Care Provider] - 1-2 days
[2021-04-06] MEDS ORDERED: ACETAMINOPHEN TAB 500 MG TAB PO STA (23:23)
[2021-04-06] MEDS ORDERED: SODIUM CHLORIDE 0.9% 1,000 ML IV STA (23:23)
[2021-04-06] MEDS ORDERED: IBUPROFEN 800 MG TAB PO STA (23:23)
[2021-04-06] MEDS ORDERED: SODIUM CHLORIDE 0.9% 500 ML 500 ML IV STA (23:23)
[2021-04-06] MEDS ORDERED: NITROGLYCERIN SL TABS 0.4 MG TAB SUBLINGUAL STA (23:43)
--- NOTE | 2021-04-07 00:05 | XR ---
EXAMINATION TYPE: XR chest 2V DATE OF EXAM: 04/06/2021 COMPARISON: 06/30/2020 HISTORY: Chest pain TECHNIQUE: 2 view FINDINGS: There is some mild interstitial infiltrate in the left lung. Right lung is clear. No heart failure seen. Heart size is normal. There are chest leads. IMPRESSION: There are some new interstitial linear infiltrates in the left lung mainly in the left up per lobe compared to the old exam. No heart failure.
[2021-04-07 00:16] LABS: Albumin 3.9 g/dL (3.5-5.0); C Reactive Protein 2.4 mg/dL (<1.0); Calcium 8.9 mg/dL (8.4-10.2); Potassium 4.4 mmol/L (3.5-5.1); Total Protein 6.3 g/dL (6.3-8.2)
[2021-04-07 00:18] LABS: INR 1.1 (<1.2); Partial Thromboplastin Time 23.2 sec (22.0-30.0); Prothrombin Time 11.8 sec (9.0-12.0)
[2021-04-07] MEDS ORDERED: AZITHROMYCIN 500 MG in SODIUM CHLORIDE 0.9% 250 ML IVPB ONE (01:00)
[2021-04-07 01:11] LABS: Anisocytosis Moderate; Basophils % (A) 0 %; Eosinophils % (A) 1 %; Lymphocytes # (A) 0.6 k/uL (1.0-4.8); Lymphocytes % (A) 54 %; MCH 35.5 pg (25.0-35.0); MCHC 34.7 g/dL (31.0-37.0); MCV 102.5 fL (80.0-100.0); Macrocytosis Moderate; Mean Platelet Volume 12.2; Monocytes % (A) 2 %; Neutrophils # (A) 0.5 k/uL (1.3-7.7); Neutrophils % (A) 42 %; RBC 1.79 m/uL (4.30-5.90); RDW 20.2 % (11.5-15.5)
[2021-04-07] MEDS ORDERED: NALOXONE 0.4 MG/ML 1 ML VIAL IV PRN (01:35)
[2021-04-07] MEDS ORDERED: MORPHINE SULFATE 4 MG/ML SYRINGE IV PRN (01:35)
[2021-04-07] MEDS ORDERED: IPRATROPIUM-ALBUTEROL 3 ML NEB INHALATION PRN (01:35)
[2021-04-07 01:36] LABS: HGB 6.4 gm/dL (13.0-17.5); WBC 1.2 k/uL (3.8-10.6)
[2021-04-07 01:37] LABS: HCT 18.3 % (39.0-53.0)
[2021-04-07] MEDS ORDERED: DEXTROSE 5%-0.45% NACL 1,000 ML IV SCH (01:45)
[2021-04-07 03:46] VITALS: RESP 18; TEMP 98.1
[2021-04-07 04:23] LABS: Platelet Count 9 k/uL (150-450)
[2021-04-07] MEDS ORDERED: ALBUTEROL HFA INHALER INHALATION PRN (07:17)
[2021-04-07 08:21] VITALS: BP 106/59; PULSE 88
[2021-04-07] MEDS ORDERED: FUROSEMIDE 10 MG/ML 4 ML VIAL IV STA (10:17)
[2021-04-07] MEDS ORDERED: EPINEPHrine 10 ML SYRINGE (0.1 MG/ML) ONE (10:22)
--- NOTE | 2021-04-07 11:28 | P.PN ---
Progress Note - Text Progress Note Date: 04/07/21 Patient was admitted to [facility] overnight, he was not evaluated by the physician. A team was called on this patient due to increasing shortness of breath and tachycardia. Patient testing positive for covid and his EKG on admission showed non-ST elevation myocardial infarction. He has a history of recurrent AML. No medical billing coordinator has seen the patient yet. I'm not sure if Dr. Ortiz called the [facility] physician doc overnight. When patient was evaluated by ordered some Lasix but suddenly his heart rate started to drop and he eventually arrested. Case was immediately discussed with daughter at bedside who initially requested CPR to be started which was done. CPR lasted for about 5 minutes, he received epinephrine, chest compressions and was bagged with 100% nonrebreather. He was not intubated. The daughter decided to change his CODE STATUS to DO NOT RESUSCITATE and DO NOT INTUBATE. Therefore the code was stopped and patient was made comfortable. He subsequently.
--- NOTE | 2021-04-07 11:46 | P.CONS ---
History of Present Illness - Reason for Consult Consult date: 04/07/21 Pancytopenia Requesting physician: Lachelle Jimenes - Chief Complaint Chest pain, fevers - History of Present Illness Mr. Vivas is an 80 yo male who is here for chest pain and fevers, found to have COVID pneumonia. He has a history of multiple comorbidities including AML status post induction with by Vidaza and Venetoclax in early 2019. See below for further details of his AML history. More recently, for the past 3 days, he's been having chest pain with episodic episodes of shortness of breath. He came into the ER with this. Also with fevers and not nausea. No vomiting. His chest pain did improve with nitro in the ER. Workup with elevated troponins and pancytopenia, WBC 1.2, hemoglobin 6.4, MCV 102.5, platelet 9. Last CBC was from 02/14/21 which revealed a WBC of 4, hemoglobin 11.6, platelet 49. He was last seen in clinic in 03/08/21, and recurrence of his leukemia was discussed at that time. Comfort care vs palliative treatment with vidaza/dacogen discussed. It does not appear that he has started dacogen yet. No with fevers and pneumonia and worsening pancytopenia. Oncology history: Mr. Vivas is a pleasant white male with overall well-controlled medical problems, follows with Dr. Tam. The patient was referred here because of pancy topenia. In 09/15 his hemoglobin is 10.1, white count 2.2 and platelets 83. Chem panel showed: 147 but was otherwise normal. In 12/16 ferritin was 372 with other iron indices normal. PSA was undetectable. B12 is 679. CBC in 02/15 again showed hemoglobin of 9.4, white count 2.3 and platelets 59. Peripheral smear in 12/16 had shown evidence of thrombo-cytopenia and leukopenia, with rare plasmacytoid-appearing lymphocytes but no other major abnormality. The patient denied any history of heavy alcohol use, chronic ongoing inflammation, or new medication at least in the last 1 year. He had had a CT of the abdomen and pelvis in 12/16, and had shown scattered nodular densities in both bases with metastatic disease not ruled out. Study was done for abdominal pain due to constipation. Follow-up CT chest on 01/21/19 showed calcified granuloma left midlung, and improving pneumonitis-type changes in bilateral lung bases. The patient had pancytopenia workup done which was negative, including ultrasound of the abdomen. Labs did show moderately elevated sedimentation rate at 57. The patient was recommended a bone marrow aspiration biopsy. He refused it at the time of stated that he would get back to us after discussing with his daughter, but did not do so. He was then seen in consult at [facility] in early 06/16. He had developed progressive cytopenias with associated weakness, leading to his admission. He was transfused, and had a bone marrow on 06/03/19 and then discharged. 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 Incidentally a small monoclonal B cell population was also noted. NGS did not reveal any specific targets. The patient was therefore started on treatment with Venetoclax and Vidaza, on 06/30/19 and is status post 4cycles. He had follow-up bone marrow aspiration and biopsy after cycle 1 on 07/25/19. This was evaluated additionally at the [facility] for second opinion and it was ultimately felt that there was a partial response with blasts percentage decreased to around 17-18% 07/18/19-Still inpatient for BRBPR, hemorrhoids, abd discomfort. He was able to get his venetoclax so he could take while inpatient, he is due for 21 day BM Bx tomorrow at [facility]. He was seen via [facility], but was seen inpatient. Telemedicine Audio Visual 08/11/19: as above. The patient was also admitted after cycle 1 for bleeding per rectum, likely hemorrhoidal. He has been having issues with constipation which were quite significant initially, but are much better controlled with ongoing bowel regimen utilizing stool softener and MiraLAX. He denied any fevers/chills/nausea/vomiting/abnormal bruising. he denied any recurrence of bleeding per rectum. Appetite is maintained. Joint issues and dyspnea on exertion are stable. he has stable fatigue. Review of systems otherwise as per HPI and negative out of 10 as above. The patient's initial bone marrow had show partial response as noted above due to his treatment was continued. repeat bone marrow on 09/12/19 showed no evidence of AML Vidaza was thus resumed. He is now s/p 6 cycles Treatment was held after his visit on 12/28/19 due to profound cytopenias. He was actually admitted to the hospital after that visit, due to symptomatic cytop enias, and treated supportively He has been on a schedule of weekly labs with transfusion support still required for Hgb. he therefore had a repeat bone marrow on 01/31/20 that showed no evidence of recurrent AML. However marrow was hypocellular, indicating treatment effect. the patient was therefore continued off treatment. Follow-up in 02/16 showed some improvement in blood counts. He was therefore continued on observation. 05/03/20-Pt here today for monthly f/u AML in remission, on observation. Denies constitutional symptoms. Feels well in general. 10/04/20-He did get 2nd covid shot earlier this week, denies any constitutional symptoms, plt are a little lower then usual, no bleeding, rash or petechiae. No acute health changes to report the patient's blood counts on routine follow-up in mid 02/17 showed a drop with hemoglobin 11.7, WBC 4.1 and platelets 39. He had short-term follow-up on 02/25/21 showing a hemoglobin of 10.6, WBC 3.7 and platelets 33. Bone marrow was therefore repeated on 03/10/21. This showed relapsed AML with now 8.4% blasts on flow cytometry, and 8-10% blasts on histopathologic exam. He has had a fair energy level. he had cataract surgery in 06/17. Perirectal pain which was due to an inflamed hemorrhoid, has not recurred. He denies any constipation. He denied any fevers/chills/nausea/vomiting. Bowel movements are overall regular, though they are intermittently loose. Appetite is maintained. He feels his dyspnea on exertion is stable. Joint issues are stable. Review of systems otherwise as per HPI and negative out of 10 Last seen in clinic on 03/08/2021. The patient is symptomatically quite stable. The results of the bone marrow and implications were discussed in detail with him and he was advised that this does represent relapse of his myeloma. The course appears to be fairly fast, as his counts today are lower than at his visit on 02/25/21. He platelets were down to 18 and hemoglobin was in the 8 range with WBC 2.3. - Options going forward were discussed with him. He was advised that he would be a poor candidate for conventional high-dose induction chemotherapy. His previous regimen of Venetoclax and HMA can be tried again. The chances of remission this time would be lower than before, and the patient would be at higher risk of side effects. especially considering that Vidaza had to be discontinued because of progressive, profound cytopenias previously. He also discussed that treatment could potentially shorten his life expectancy. Life expectancy without treatment was also discussed. Comfort care option were also discussed. At this time the patient does want to try active treatment with full understanding of the risks and benefits. - He would therefore be started on Venetoclax. I will try and the Decitabine this time instead of Vidaza, since he did have tolerance issues with the latter previously. Past Medical History Past Medical History: Coronary Artery Disease (CAD), Cancer, GERD/Reflux, Hyperlipidemia, Hypertension, Prostate Disorder Additional Past Medical History / Comment(s): prostate ca 2012(sx only). psoriases on scalp, Leukemia APR 2019, last chemo 12/20/19 History of Any Multi-Drug Resistant Organisms: None Reported Past Surgical History: Heart Catheterization, Hernia Repair, Prostate Surgery, Tonsillectomy Additional Past Surgical History / Comment(s): prostate Past Anesthesia/Blood Transfusion Reactions: No Reported Reaction Past Psychological History: No Psychological Hx Reported Smoking Status: Never smoker Past Alcohol Use History: Occasional Past Drug Use History: None Reported - Past Family History Mother Family Medical History: No Reported History Additional Family Medical History / Comment(s): age 96 Father Additional Family Medical History / Comment(s): at age 59 had all teeth pulled and 3 days later ?blood clot/mi pt not sure Medications and Allergies Home Medications Medication Instructions Recorded Confirmed Type Atorvastatin [Lipitor] 40 mg PO HS 01/13/18 04/07/21 History Nitroglycerin Sl Tabs [Nitrostat] 0.4 mg SL Q5M PRN 01/13/18 04/07/21 History Cyanocobalamin (Vitamin B-12) 1,000 mcg PO DAILY 06/13/19 04/07/21 History [Vitamin B-12] Ranolazine [Ranolazine ER] 500 mg PO BID 06/13/19 04/07/21 History lisinopriL [Zestril] 2.5 mg PO DAILY 12/21/19 04/07/21 History Cholecalciferol [Vitamin D3 (25 50 mcg PO DAILY 04/07/21 04/07/21 History Mcg = 1000 Iu)] Isosorbide Mononitrate ER [Imdur] 30 mg PO BID 04/07/21 04/07/21 History Metoprolol Tartrate [Lopressor] 12.5 mg PO BID 04/07/21 04/07/21 History Allergies Allergy/AdvReac Type Severity Reaction Status Date / Time No Known Allergies Allergy Verified 04/07/21 08:37 Physical Exam Vitals: Vital Signs Temp Pulse Pulse Resp BP BP Pulse Ox 04/07/21 08:00 98.1 F 88 18 106/59 94 L 04/07/21 06:13 82 18 04/07/21 04:00 98.1 F 82 18 86/51 95 04/07/21 03:01 98.1 F 82 18 86/51 95 04/07/21 02:00 82 22 92 L 04/07/21 01:24 82 18 119/57 92 L 04/06/21 23:04 100.7 F H 91 20 103/82 100 Intake and Output 04/06/21 04/07/21 04/07/21 22:59 06:59 14:59 Other: Weight 80.739 kg Due to concerns of COVID-19 detection/exposure, in an effort to limit healthcare providers and transmission, parts of the encounter may of been obtained through chart review, family members, telephone/video visits, and/or discussion with [facility] team/nursing and ancillary staff. Results CBC & Chem 7: 04/07/21 00:52 04/06/21 23:28 Labs: Abnormal Lab Results - Last 24 Hours (Table) 04/06/21 04/06/21 04/07/21 Range/Units 23:28 23:28 00:21 WBC (3.8-10.6) k/uL RBC (4.30-5.90) m/uL Hgb (13.0-17.5) gm/dL Hct (39.0-53.0) % MCV (80.0-100.0) fL MCH (25.0-35.0) pg RDW (11.5-15.5) % Plt Count (150-450) k/uL Neutrophils # (1.3-7.7) k/uL Lymphocytes # (1.0-4.8) k/uL Sodium 135 L (137-145) mmol/L BUN 32 H (9-20) mg/dL Creatinine 1.42 H (0.66-1.25) mg/dL Glucose 121 H (74-99) mg/dL Troponin I 0.247 H* (0.000-0.034) ng/mL C-Reactive Protein 2.4 H (<1.0) mg/dL Coronavirus (PCR) Detected A (Not Detectd) 04/07/21 Range/Units 00:52 WBC 1.2 L* (3.8-10.6) k/uL RBC 1.79 L (4.30-5.90) m/uL Hgb 6.4 L* (13.0-17.5) gm/dL Hct 18.3 L* (39.0-53.0) % MCV 102.5 H (80.0-100.0) fL MCH 35.5 H (25.0-35.0) pg RDW 20.2 H (11.5-15.5) % Plt Count 9 L* (150-450) k/uL Neutrophils # 0.5 L (1.3-7.7) k/uL Lymphocytes # 0.6 L (1.0-4.8) k/uL Sodium (137-145) mmol/L BUN (9-20) mg/dL Creatinine (0.66-1.25) mg/dL Glucose (74-99) mg/dL Troponin I (0.000-0.034) ng/mL C-Reactive Protein (<1.0) mg/dL Coronavirus (PCR) (Not Detectd) Chest x-ray: report reviewed Assessment and Plan Assessment: 1. AML 2. COVID pneumonia 3. Pancytopenia Plan: Mr. Vivas is a very pleasant 80 yo male with multiple comorbidities including AML here for COVID pneumonia. He has had recent relapse of his AML and discussion of comfort care vs palliative HMA with venetoclax was discussed. He opted to proceed with treatment, which has not yet been started. Here for COVID pneumonia. Acute on chronic pancytopenia due to underlying AML and recent infectious process. Would recommend treatment of his infection and supportive transfusion, maintain Hgb >7 and plt >15. Avoid AC/prophylactic AC due to severe thrombocytopenia. Hold off on AML directed therapy until he improves. Comfort care is also reasonable, ruy with underlying AML. Will continue to follow pt with you. Due to concerns of COVID-19 detection/exposure, in an effort to limit healthcare providers and transmission, parts of the encounter may of been obtained through chart review, family members, telephone/video visits, and/or discussion with primary team/nursing and ancillary staff.
== END 2021-04-07 12:24 | disposition expired | DRG 177 ==
LOC: EC 23:01 → 3SCARD 04-07 01:35
PROVIDERS: ADMIT Internal Medicine; ATTEND Internal Medicine
PROC: 5A12012 Performance of Cardiac Output, Single, Manual (ICD-10-PCS; principal; 2021-04-07)
DX: U07.1 COVID-19 (principal); J12.82 Pneumonia due to coronavirus disease 2019; I21.4 Non-ST elevation (NSTEMI) myocardial infarction; C92.02 Acute myeloblastic leukemia, in relapse; D61.818 Other pancytopenia; Z51.5 Encounter for palliative care; Z66 Do not resuscitate; D69.6 Thrombocytopenia, unspecified; I10 Essential (primary) hypertension; I25.10 Atherosclerotic heart disease of native coronary artery without angina pectoris; L40.9 Psoriasis, unspecified; K59.00 Constipation, unspecified; E78.5 Hyperlipidemia, unspecified; Z92.21 Personal history of antineoplastic chemotherapy; Z79.899 Other long term (current) drug therapy; Z85.46 Personal history of malignant neoplasm of prostate; Z88.1 Allergy status to other antibiotic agents; Z87.19 Personal history of other diseases of the digestive system
CPT/HCPCS: 36415; 71046; 80053; 83605; 83615; 83690; 83735; 83880; 84484; 85025; 85610; 85730; 86140; 86850; 86900; 86901; 86920; 87040; 87635; 92950; 93005; 94640; 96361; 96365; 99291